=== PATIENT | female | born 1985 | race Two or more races ===

== ENCOUNTER 2022-05-06 13:49 | Outpatient (REF) | payer OTHER, SELFPAY ==
--- NOTE | 2022-05-06 | PFT_ITS ---
INDICATION: Asthma. SPIROMETRY: FEV1 to FVC of 86%, FEV1 is 3.06 L, which is 104% predicted, FVC of 3.56 L, which is 100% predicted. No significant response to bronchodilators noted. LUNG VOLUMES: Total lung capacity 96% predicted. DIFFUSION CAPACITY: DLCO 97% predicted. COMPARISONS: None. INTERPRETATION: No obstructive nor restrictive ventilatory defect. No significant response to bronchodilators noted. Normal maximum voluntary ventilation. Lung volumes are within normal limits except for decrease in the expiratory reserve volume secondary to an elevated BMI. Diffusion capacity is within normal limits. If asthma is in the differential, methacholine challenge may be helpful in assessing for hyper-reactive airways, otherwise clinical correlation warranted. Tejas Bañuelos MD MR/MODL / [id number]
== END 2022-05-06 13:50 | disposition home or self-care (01) ==
LOC: HO.RESP 13:49
PROVIDERS: PCP Family Medicine; Visit Provider Family Medicine
DX: J45.20 Mild intermittent asthma, uncomplicated (principal)
CPT/HCPCS: 94060; 94727; 94729

== ENCOUNTER 2023-06-23 15:55 | Outpatient (REF) | payer OTHER, SELFPAY ==
[2023-06-23 17:57] LABS: Cholesterol 189 mg/dL (<200); HDL Cholesterol 50 mg/dL (>40); LDL Cholesterol Calculated 111 mg/dL (<100); Triglycerides 142 mg/dL (<150)
[2023-06-23 18:04] LABS: Alanine Aminotransferase 20 U/L (0-31); Albumin Level 4.6 g/dL (3.5-5.0); Alkaline Phosphatase 99 U/L (39-117); Anion Gap 13 (12-20); Aspartate Amino Transferase 19 U/L (5-31); Bilirubin Total 0.7 mg/dL (0.0-1.0); Blood Urea Nitrogen 11 mg/dL (9-16); Calcium 9.7 mg/dL (8.4-10.2); Carbon Dioxide 28 mmol/L (22-29); Chloride 105 mmol/L (96-108); Estimated Glomerular Filt Rate > 60; Glucose Random 97 mg/dL (60-115); Potassium 4.3 mmol/L (3.3-5.1); Sodium 142 mmol/L (135-145)
[2023-06-23 18:15] LABS: Reflex LDLD? No
[2023-06-23 18:18] LABS: TSH reflex Free T4 0.74 uIU/mL (0.32-4.0)
[2023-06-24 05:23] LABS: Estimated Average Glucose 108 mg/dL; Hemoglobin A1c % 5.4 % (<6.0)
== END 2023-06-23 15:56 | disposition home or self-care (01) ==
LOC: HO.HHCL 15:55
PROVIDERS: Visit Provider Family Medicine
DX: E66.09 Other obesity due to excess calories (principal); Z68.33 Body mass index [BMI] 33.0-33.9, adult
CPT/HCPCS: 36415; 80053; 80061; 83036; 84443

== ENCOUNTER 2023-07-31 12:22 | Outpatient (REF) | payer OTHER, SELFPAY ==
--- NOTE | ~2023-07-31 | MM_ITS ---
EXAMINATION: MM SCREENING DIGITAL BREAST TOMOSYNTHESIS, BILATERAL CLINICAL INFORMATION: Screening. Asymptomatic. COMPARISON: Mammography: This is a baseline study. TECHNIQUE: Digital breast tomosynthesis is performed in both the craniocaudal and mediolateral oblique views along with computer-aided detection (CAD). Synthesized 2D images are generated from the tomosynthesis. FINDINGS: The breasts are heterogeneously dense, which may obscure small masses (ACR BI-RADS breast composition Category c). There are no significant masses, abnormal calcifications, or other abnormalities. MM/MM tomosynthesis screening BI IMPRESSION: No mammographic evidence of malignancy. ASSESSMENT: BI-RADS BI-RADS 1 - Negative RECOMMENDATION: Routine annual mammography screening. 1 year F/U This examination should not preclude the clinical evaluation of a suspicious palpable abnormality. This patient's information was entered into a reminder system with a target due date for their next mammogram.
== END 2023-07-31 12:23 | disposition home or self-care (01) ==
LOC: HO.MAMMO 12:22
PROVIDERS: PCP Family Medicine; Visit Provider Family Medicine
DX: Z12.31 Encounter for screening mammogram for malignant neoplasm of breast (principal)
CPT/HCPCS: 77063; 77067

== ENCOUNTER → 2023-07-31 12:45 | Outpatient (BNV) | payer OTHER, SELFPAY | PROVIDERS: PCP Family Medicine; Visit Provider Radiology Diagnostic Radiology | DX: Z12.31 Encounter for screening mammogram for malignant neoplasm of breast (principal) | CPT/HCPCS: 77063; 77067 ==

== ENCOUNTER 2023-11-02 14:18 | Outpatient (REF) | payer OTHER, SELFPAY ==
--- NOTE | ~2023-11-02 | US_ITS ---
EXAMINATION: US PELVIS CLINICAL INFORMATION: Abnormal uterine bleeding LMP 10/16/2023 COMPARISON: None available. TECHNIQUE: Transabdominal scanning was performed. The patient declined transvaginal scanning. Spectral Doppler was also performed. Technically limited study due to low bladder volume and bowel gas as well as patient declining to have a transvaginal exam. FINDINGS: Uterus: The uterus is anteverted and measures 7.2 x 3.9 x 4.1 cm. 1.2 x 1 0.9 x 1.2 cm exophytic fibroid extends off the uterine fundus. The endometrium measures 0.5 cm. Adnexa: Both ovaries are visualized. There is normal color flow to the adnexa. There is no ovarian torsion. There is no pelvic ascites or fluid collection. Right ovary measures 1.9 x 1.4 x 1.7 cm. Volume 2.4 mL. Left ovary measures 2.2 x 1.2 x 1.2 cm. Volume 1.7 mL. US/US pelvic and transvaginal IMPRESSION: 1. 1.2 cm exophytic fibroid extends off the uterine fundus. 2. Normal ovaries.
== END 2023-11-02 14:19 | disposition home or self-care (01) ==
LOC: HO.US 14:18
PROVIDERS: PCP Family Medicine; Visit Provider Family Medicine
DX: N93.9 Abnormal uterine and vaginal bleeding, unspecified (principal)
CPT/HCPCS: 76830; 76856

== ENCOUNTER 2024-02-16 15:51 | Outpatient (REF) | payer OTHER, SELFPAY ==
[2024-02-16 17:48] LABS: MANUAL DIFF FLAG NO
[2024-02-16 17:58] LABS: Basophils Percent Auto 0.3 % (0-2); Eosinophils Absolute Auto 0.1 X10*3/uL (0.0-0.4); Hematocrit 39.6 % (37.0-47.0); Imm Gran Abs Auto 0.04 X10*3/uL (0.00-0.03); Imm Gran Pct Auto 0.5 % (0.0-0.4); Lymphocytes Absolute Auto 2.9 X10*3/uL (1.2-4.9); Lymphocytes Percent Auto 33.6 % (20-40); Mean Corpuscular HGB Conc 32.8 g/dl (31.0-35.0); Mean Corpuscular Volume 85.3 fL (80.0-98.0); Mean Platelet Volume 9.7 fL (9.4-12.3); Monocytes Absolute Auto 0.5 X10*3/uL (0.1-1.2); Monocytes Percent Auto 5.7 % (2-11); Neutrophils Absolute Auto 5.1 x10*3/uL (2.0-8.3); Neutrophils Percent Auto 58.9 % (45-73); Platelet Count 308 X10*3/uL (160-400); Red Blood Count 4.64 X10*6/uL (4.20-5.50); Red Cell Distribution Width 13.1 % (11.0-16.0); White Blood Count 8.7 X10*3/uL (4.8-10.8)
[2024-02-16 18:50] LABS: Iron 84 mcg/dL (30-160); Percent Iron Saturation 26 % (15-50); Total Iron Binding Capacity 318 mcg/dL (228-428); Unsaturated Iron Binding 234 ug/dL
[2024-02-16 19:05] LABS: Ferritin 113 ng/mL (10-250)
[2024-02-16 19:18] LABS: Vitamin B12 303 pg/mL (200-900)
[2024-02-18 22:09] LABS: TS Negative Control Passed; TS Panel A 1; TS Panel B 5; TS Positive Control Passed; TSpotTB Borderline (Negative)
== END 2024-02-16 15:52 | disposition home or self-care (01) ==
LOC: HO.HHCL 15:51
PROVIDERS: Visit Provider Family Medicine
DX: N93.9 Abnormal uterine and vaginal bleeding, unspecified (principal); D64.9 Anemia, unspecified; Z11.1 Encounter for screening for respiratory tuberculosis
CPT/HCPCS: 36415; 82607; 82728; 82746; 83540; 85025; 86481

== ENCOUNTER 2024-02-22 13:21 | Outpatient (REF) | payer OTHER, SELFPAY ==
[2024-02-25 15:34] LABS: TS Negative Control Passed; TS Panel A 0; TS Panel B 1; TS Positive Control Passed; TSpotTB Negative (Negative)
== END 2024-02-22 13:22 | disposition home or self-care (01) ==
LOC: HO.HHCL 13:21
PROVIDERS: Visit Provider Family Medicine
DX: Z11.1 Encounter for screening for respiratory tuberculosis (principal)
CPT/HCPCS: 36415; 86481

== ENCOUNTER 2024-03-03 13:39 | Outpatient (AMB) | payer OTHER, SELFPAY ==
--- NOTE | 2024-03-03 13:58 | A.OFFVIS_ITS ---
Vital Signs 03/03/24 14:08 Height 5 ft 3 in Weight 198 lb BMI 35.1 Intake Visit Reasons: hemorroids Intake Note: This patient presents for hemorrhoid assessment. Pt c/o; reports last epidose of rectal bleeding was November 2023, reports constipation, straining with bowel movements, reports she is using stool softeners. Inseam Leveler Required: No Accompanied by: Self / Same As Patient Allergies No Known Allergies Allergy (Unverified 03/03/24 14:04) Medication List - Last Reviewed 03/03/24 by NABOR Wu albuterol sulfate mg inhalation docusate sodium 100 mg PO BID fluticasone propionate 50 mcg/actuation sprays intranasal loratadine 10 mg PO QAM magnesium oxide 400 mg PO DAILY naproxen 500 mg PO BID HPI HPI hemorroids: Details: [age] year old female referred for hemorrhoid issues. She says that she has had hemorrhoids for almost 10 years now. She says that she has had worsening prolapse along with pain and discomfort. She has chronic constipation as well and her hemorrhoids have been swelling up more frequently now especially with bowel movements. She says that she does occasionally see small amounts of blood on wiping. He had She states that she had a particularly severe episode of pain and swelling last Nov, 2023. [facility] Medical History (Updated 03/03/24 @ 14:18 by Kerwin Antonio MD) Hemorrhoids that prolapse with straining and require manual replacement back inside anal canal Surgical History History of surgery on arm Social History Alcohol intake: never Patient Tobacco Use Status: Never used Tobacco Review of Systems Const Denies chills and Denies fever(s) Card Denies chest pain, Denies dyspnea and Denies dyspnea on exertion Resp Denies cough, Denies dyspnea and Denies dyspnea on exertion GI Reports hematochezia and Reports constipation Denies hematuria Musc Denies back pain and Denies limited range of motion Neuro Denies focal weakness and Denies convulsions Psych Denies depression and Denies mood swings Physical Exam Vital Signs: BMI result Body Mass Index 35.1 Const General: comfortable and no acute distress Orientation/consciousness: patient oriented x3 Neck Neck: Yes no lymphadenopathy Resp Auscultation: clear to auscultation bilaterally Cardio Rhythm: regular rhythm GI Other: Rectal exam shows moderate size external hemorrhoids posteriorly and anteriorly Palpation (GI): Soft to palpation, nontender and no guarding Neuro General: patient oriented x3 Office Procedures Anoscopy She was in sunita-knife position. The anoscope was gently inserted. A full examination of the anal canal was done. She did have this moderate-sized internal external hemorrhoidal column on the posterior aspect as well as the anterior aspect. The posterior hemorrhoidal column seems to prolapse easily. There were no other lesions. There was no fissure ulceration. No induration on digital exam. There is no bleeding. [id number] Assessment & Plan Assessment & Plan (1) Hemorrhoids that prolapse with straining and require manual replacement back inside anal canal: Code(s): K64.2 - Third degree hemorrhoids Category: Medical Plan: She has had worsening problems with hemorrhoids including frequent prolapse as well as pain and swelling. Examination shows moderate size internal external hemorrhoidal columns I explained to her the option of proceeding with hemorrhoidectomy. I discussed the technique of this procedure. I reviewed the risks including but not limited to bleeding, infections, postop pain, sphincter injury, as well as the benefits and alternatives. I reviewed with her to expect postoperatively. She wants to proceed with hemorrhoidectomy. She however is going on a trip to [place] and to [place] this April in May so she will have the procedure done after that. Coding Level of Care Code New Pt Level 3 (85315) Diagnoses Hemorrhoids that prolapse with straining and require manual replacement back in side anal canal K64.2 CPT Codes Details - CPT: 25163-[id number] ([id number])
[2024-03-03 14:08] VITALS: BMI 35.1
== END 2024-03-03 14:23 | disposition home or self-care (01) ==
PROVIDERS: PCP Family Medicine; Referring Provider Family Medicine; Visit Provider Surgery
DX: K64.2 Third degree hemorrhoids (principal)
CPT/HCPCS: 46600; 99203

== ENCOUNTER → 2024-03-03 13:39 | Outpatient (BNVA) | payer OTHER, SELFPAY | PROVIDERS: PCP Family Medicine; Referring Provider Family Medicine; Visit Provider Surgery | DX: K64.2 Third degree hemorrhoids (principal) | CPT/HCPCS: 46600; 99202 ==

== ENCOUNTER 2024-09-29 13:09 | Outpatient (AMB) | payer OTHER, SELFPAY ==
--- NOTE | 2024-09-29 13:16 | MHC.OFFVIS ---
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 it started few months ago and is getting worse no other associated symptoms. [facility] [place] Medical History Asthma Hemorrhoids that prolapse with straining and require manual replacement back inside anal canal Surgical History History of surgery on arm Social History Alcohol intake: never Patient Tobacco Use Status: Never used Tobacco Female Reproductive History Menstrual Date of last menstrual period: 09/26/24 (Present ) Date of Mammogram: 07/21/23 (bi rad 1) Review of Systems Const All systems reviewed & are unremarkable except as noted in HPI and below Card Reports as per HPI Resp Reports as per HPI GI Reports as per HPI and Reports no additional complaints Reports as per HPI Physical Exam Vital Signs: Last Vital Signs BP 132/82 09/29/24 13:26 BMI result Body Mass Index 35.1 Const General: cooperative, healthy appearing and comfortable Chest Chest palpation & inspection: normal inspection of the chest and normal palpation of entire chest wall Breast/axilla inspection: normal inspection of the breasts and normal inspection of the axillae Breast/axilla palpation: normal palpation of the breasts, normal palpation of the axillae and no axillary lymphadenopathy Resp Effort & Inspection: normal respiratory effort Auscultation: clear to auscultation bilaterally Percussion: percussion normal Cardio Palpation: normal PMI Rate: regular rate Rhythm: regular rhythm Heart sounds: no murmurs and no rubs Peripheral pulses: Peripheral pulses 2+ throughout GI Inspection: Yes normal to inspection Palpation (GI): Soft to palpation, nontender, no guarding, not rigid and No hepatosplenomegaly present Percussion: Yes normal to percussion Auscultation: normal bowel sounds Rectal Exam - Female: deferred General: Yes bladder normal to palpation External Female Exam: No lesion Speculum Exam - Vagina: normal appearance of the vagina, normal palpation, normal vaginal discharge and not erythematous Speculum Exam - Cervix: normal appearance of the cervix and normal palpation Bimanual exam- vagina & uterus: normal bimanual exam, normal palpation, uterine size normal, bladder normal to palpation, consistency normal and normal palpation Bimanual Exam- Adnexa, other: normal adnexae, no masses and no tenderness Results AMB Test Urine AMB Test Urine Negative Last Edit by Tawana Pineda CMA on 09/29/24 13:29 Assessment & Plan Assessment & Plan (1) Abnormal uterine bleeding: Code(s): N93.9 - Abnormal uterine and vaginal bleeding, unspecified Category: Medical Plan: Screening mammogram ordered, Co testing done, GC and chlamydia taken CBC, TSH, HCG, and pelvic ultrasound ordered. Discussed with the patient the different causes of abnormal bleeding including thyroid disorders, uterine and ovarian pathology, endometrial hyperplasia, carcinoma and other potential causes. Discussed with the patient the work up including CBC (to r/o anemia), TSH, pelvic Ultrasound, endometrial biopsy to r/o endometrial pathology. All questions answered and the patient verbalized understanding. Instructed the patient to schedule an appointment for an endometrial biopsy in 2 weeks. Orders: Orders TSH reflex Free T4 Today N93.9 - Abnormal uterine and vaginal bleeding, unspecified AMB HCG Urine Test Today Z32.02 - Encounter for test, result negative US pelvic and transvaginal Today N93.9 - Abnormal uterine and vaginal bleeding, unspecified Complete Blood Count no Diff Today N93.9 - Abnormal uterine and vaginal bleeding, unspecified HCG Quantitative Today N93.9 - Abnormal uterine and vaginal bleeding, unspecified MM screening mammo BI Today Z12.31 - Encounter for screening mammogram for malignant neoplasm of breast Coding Level of Care Code New Pt Level 3 (65843) Diagnoses Abnormal uterine bleeding N93.9
[2024-09-29 13:26] VITALS: BP 132/82; BMI 35.1
--- OUTSIDE RECORDS SUMMARY | 2024-09-29 16:16 | XMS_ITS | Clinical Summary ---
Author Organization [employer] Address [address] [place] [address] [address] [place] [address] Care Team Providers Care Machine Try Out Setter Name Role Phone Anny Carcamo MD Primary Care Provider Allergies No known active allergies Medications albuterol (ProAir HFA) 108 (90 Base) MCG/ACT inhaler Inhale 2 puffs every 6 (six) hours if needed for wheezing. 36 g 3 02/16/20 24 025 Active loratadine (Claritin) 10 MG tablet Take 1 tablet (10 mg) by mouth Once per day. 30 tablet 02/16/20 24 025 Active albuterol (2.5 MG/3ML) 0.083% nebulizer solution Take 3 mL (2.5 mg) by nebulization every 4 (four) hours if needed for wheezing or shortness of breath (Maximum 4 treatments per day). 75 mL 1 02/16/20 24 025 Active MAGnesium-Oxid e 400 (240 Mg) MG tablet Take 1 tablet (400 mg) by mouth Once per day. 30 tablet 02/16/20 24 Active docusate sodium (Colace) 100 MG capsule Take 1 capsule (100 mg) by mouth 2 times daily. 60 capsule 5 02/16/20 24 Active fluticasone (Flonase) 50 MCG/ACT nasal spray SHAKE AND SPRAY 1 TO 2 SPRAYS IN EACH NOSTRIL EVERY MORNING 16 g 2 06/20/20 24 Active naproxen (Naprosyn) 500 MG tabletIndicati ons:Nonintract able headache, unspecified chronicity pattern, unspecified headache type TAKE 1 TABLET(500 MG) BY MOUTH TWICE DAILY NEEDED FOR PAIN 60 tablet 09/09/19 25 Active naproxen (Naprosyn) 500 MG tabletIndicati ons:Nonintract able headache, unspecified chronicity pattern, unspecified headache type TAKE 1 TABLET(500 MG) BY MOUTH TWICE DAILY NEEDED FOR PAIN 60 tablet 08/09/19 25 025 Discontinued Active Problems Problem Noted Date Diagnosed Date Depression, recurrent 02/21/2024 Assessment & Plan (02/21/2024 3:17 PM EDT): - PHQ9 score 7 - patient declines outpatient treatment History of kidney stones 02/21/2024 Assessment & Plan (02/21/2024 3:15 PM EDT): - Incidental finding on previous CT, non-obstructive - adequate hydration Hemorrhoid 02/16/2024 Assessment & Plan (02/16/2024 3:53 PM EDT): - improve treatment for constipation - continue fiber-rich diet - will write script for adrienne jones - will refer to general surgeon for evaluation and management as requested by patient Fibroid 12/18/2023 Assessment & Plan (02/16/2024 3:54 PM EDT): - 11/02/23 Pelvic US showed 1.2 cm exophytic fibroid extends off the uterine fundus. - referred to COLLATOR OPERATOR Assessment & Plan (12/18/2023 10:34 AM EDT): - 11/02/23 Pelvic US showed 1.2 cm exophytic fibroid extends off the uterine fundus. - referred to COLLATOR OPERATOR Abnormal uterine bleeding (AUB) 10/28/2023 Assessment & Plan (02/16/2024 3:51 PM EDT): - oligomenorrhea rather than menorrhagia, question of PCOS - 11/02/23 Pelvic US 1. 1.2 cm exophytic fibroid extends off the uterine fundus. 2. Normal ovaries. - refer to COLLATOR OPERATOR - check anemia lab Assessment & Plan (12/18/2023 10:36 AM EDT): - oligomenorrhea rather than menorrhagia, question of PCOS - 11/02/23 Pelvic US 1. 1.2 cm exophytic fibroid extends off the uterine fundus. 2. Normal ovaries. - refer to COLLATOR OPERATOR - PAP at next visit Assessment & Plan (10/28/2023 5:35 AM EDT): - oligomenorrhea rather than menorrhagia, question of PCOS - evaluate AUB with US - schedule PAP after she returns from her trip Elevated BP without diagnosis of hypertension Assessment & Plan (02/16/2024 3:52 PM EDT): -Goal BP < 140/90 per JNC-8 and < 130/80 per ACC/AHA guideline (Treatment threshold >=140/90) -BP not at goal initially, second measurement has improved, patient attributes to anxiety -Family hx HTN -Patient denies symptoms of ERIKA initially because she does not want to use CPAP. Patient become somewhat curious when we discussed about a part of evaluation for headache. -Continue working on lifestyle modifications -Recommended self-monitoring BP. -Follow up in 3-6 mo, sooner if any problem arises Assessment & Plan (10/28/2023 5:38 AM EDT): -Goal BP < 140/90 per JNC-8 and < 130/80 per ACC/AHA guideline (Treatment threshold >=140/90) -BP not at goal, patient attributes to current emotional state -Family hx HTN -Patient denies symptoms of ERIKA initially because she does not want to use CPAP. Patient become somewhat curious when we discussed about a part of evaluation for headache. -Continue working on lifestyle modifications -Recommended self-monitoring BP. -Follow up in 3-6 mo, sooner if any problem arises Obesity 06/29/2023 Assessment & Plan (10/28/2023 6:00 AM EDT): - patient gained weight since last encounter and her BP is elevated - possible ERIKA, patient is not enthusiastic about sleep study for ERIKA Tx, but is interested in having as a part of work-up for VEE. - will reassess at next visit Assessment & Plan (06/29/2023 6:48 AM EST): - work on lifestyle modifications Learning disability 06/29/2023 Assessment & Plan (02/21/2024 3:18 PM EDT): - pt states that she has been on social security disability since she was a child due to learning disability - ?autism spectrum disorder (Asperger's ?) - not engaged in BHS, and pt declines Assessment & Plan (10/28/2023 5:40 AM EDT): - pt states that she has been on social security disability since she was a child due to learning disability - Previous Dx is uncertain at this time - pt does not have mood disorder symptoms or signs - ?autism spectrum disorder (Asperger's ?) - not engaged in BHS, and pt declines Assessment & Plan (06/29/2023 6:54 AM EST): - pt states that she has been on social security disability since she was a child due to learning disability - Previous Dx is uncertain at this time - pt does not have mood disorder symptoms or signs - ?autism spectrum disorder (Asperger's ?) - not engaged in BHS, and pt declines Allergic rhinitis 02/06/2015 06/17/2023 Assessment & Plan (02/16/2024 3:54 PM EDT): -continue loratadine and fluticasone nasal Assessment & Plan (10/28/2023 5:40 AM EDT): -continue loratadine and fluticasone nasal Assessment & Plan (06/29/2023 6:50 AM EST): -continue loratadine and fluticasone nasal Hypertrophy of tonsils 02/06/2015 Assessment & Plan (10/28/2023 5:40 AM EDT): - patient declines sleep study or ENT evaluation Asthma 03/21/2013 06/17/2023 Assessment & Plan (02/16/2024 3:50 PM EDT): - continue albuterol HFA prn (patient request ProAir because other inhalers are not effective as ProAir). Assessment & Plan (10/28/2023 5:39 AM EDT): - continue albuterol HFA prn (patient request ProAir because other inhalers are not effective as ProAir). Assessment & Plan (06/29/2023 6:48 AM EST): - continue albuterol HFA prn Impaired fasting glucose 03/21/2013 023 Assessment & Plan (02/16/2024 3:54 PM EDT): - 06/23/23 A1C 5.4%, improved - recent weight gain - work on lifestyle modifications Assessment & Plan (10/28/2023 5:58 AM EDT): - 06/23/23 A1C 5.4%, improved - recent weight gain - work on lifestyle modifications Assessment & Plan (06/29/2023 6:49 AM EST): - check lab - work on lifestyle modifications Migraine 03/21/2013 06/17/2023 Assessment & Plan (02/16/2024 3:54 PM EDT): - continue magnesium oxide - continue judicious use of NSAID prn Assessment & Plan (10/28/2023 5:41 AM EDT): - continue magnesium oxide - continue judicious use of NSAID prn Assessment & Plan (06/29/2023 6:50 AM EST): - continue magnesium oxide - continue judicious use of NSAID prn Resolved Problems Problem Noted Date Diagnosed Date Resolved Date Restless legs 03/21/2013 06/17/2023 06/29/2023 Encounters Date Type Department Care Team Description 09/29/2024 Orders Only GENERIC EXTERNAL DATA DEPARTMENT Provider, Generic External Data 09/08/2024 Refill [facility] [address] [facility] [place] [address] Anny Carcamo MD Nonintractable headache, unspecified chronicity pattern, unspecified headache type 08/09/2024 Refill [facility] [address] [facility] [place] [place] [address] Anny Carcamo MD Nonintractable headache, unspecified chronicity pattern, unspecified headache type 07/20/2024 Refill [facility] [address] [facility], [place] [address] Anny Carcamo MD 07/10/2024 Refill [facility] [address] [place] [address] Anny Carcamo MD Nonintractable headache, unspecified chronicity pattern, unspecified headache type from Last 3 Months Immunizations Name Administration Dates Next Due Influenza injectable quadriv alent IIV4 with preservative 08/10/2017 Influenza injectable quadrivalent preservative f ree 06/23/2023,04/10/2022 Influenza, Split (incl. purified surface antigen ) 03/21/2013 Moderna Covid-19 Vaccine 6+ Bivalent 07/23/2022 Pneumococcal Polysaccharide PPSV23 02/06/2015 Tdap 06/23/2023,10/11/2009 Family History Medical History Relation Name Comments Hypertension Father Diabetes Maternal Grandmother Hypertension Maternal Grandmother Hypertension Mother Relation Name Status Comments Father Maternal Grandmother Mother Social History Tobacco Use Types Packs/Day Years Used Date Smoking Tobacco: Never Smokeless Tobacco: Never Tobacco Cessation:Counseling Given: Not Answered Depression Answer Date Recorded Patient Health Questionnaire-9 Score 7 02/16/2024 Patient Health Questionnaire-9 Score 7 02/16/2024 Last PHQ-9: Questionnaire Data Not on file 0 02/16/2024 Housing Stability Answer Date Recorded What is your housing situation today? I have monico sosa 06/23/[address] you li ve. Do you have problems with any of the following? None of the above 06/23/2023 Food Insecurity Answer Date Recorded Within the past 12 months, y ou worried that your food would run out before you got money to buy more: Sometimes True 2023 Within the past 12 months,th e food you bought just didn't last and you didn't have enough money to get more: Sometimes True 10/15/2023 Transportation Answer Date Recorded In the past 12 months, has l ack of transportation kept you from medical appts, meetings, work or from getting things needed for daily living? No 06/23/2023 Utilities Answer Date Recorded In the past 12 months, has t he electric, gas, oil or water company threatened to shut off services in your home? No 06/23/2023 Depression Answer Date Recorded Patient Health Questionnaire-2 Score 2 02/16/2024 Comments Unknown Sex and Gender Information Value Date Recorded Sex Assigned at Female 05/05/2022 10:17 AM EDT Legal Sex Female 10:17 AM EDT Gender Identity Female 05/05/2022 10:17 AM EDT Sexual Orientation Straight 05/05/2022 10 :17 AM EDT Last Filed Vital Signs Vital Sign Reading Time Taken Comments Blood Pressure 143/101 02/16/2024 3:09 PM EDT Pulse 78 02/16/2024 3:09 PM EDT Temperature 36.1 ??C (96.9 ??F) 02/16/2024 3:09 PM ED T Respiratory Rate 20 02/16/2024 3:09 PM EDT Oxygen Saturation 99% 02/16/2024 3:09 PM EDT Inhaled Oxygen Concentration - - Weight 89.4 kg (197 lb) 02/16/2024 3:09 PM EDT Height 158.7 cm (5' 2.49 ) 02/16/2024 3:09 PM ED T Body Mass Index 35.47 02/16/2024 3:09 PM EDT Plan of Treatment Upcoming Encounters Date Type Department Care Team (Late st Contact Info) Description 11/02/2024 9:45 AM EDT Office Visit [facility] [address] [place] [address] Anny Carcamo MD [address] [place] [address] Health Maintenance Due Date Last Done Comments Alcohol/Substance Use Screening 1995 Family Planning (PISQ) 1998 Hepatitis B Vaccines (1 of 3 - 19+ 3-dose series) 2002 Pneumococcal Vaccine: Pediatrics (0 to 5 Years) and At-Risk Patients (6 to 49) Years) (2 of 2 - PCV) 02/07/2016 02/06/2015 COVID-19 Vaccine (4 - season) 2024 07/23/2022, 11/28/2020, 10/31/2020 Influenza Vaccine (#1) 2024 , 04/10/2022, 08/10/2017, Additional history exists SDOH Screening 10/14/2024 10/15/2023 Depression Screening 02/15/2025 02/16/2024, 02/16/20 24 Tobacco Screening 02/15/2025 02/16/2024 Pap Smear 05/19/2025 05/19/2022 Mammogram 07/31/2025 07/31/2023 Cervical Cancer Screening 05/19/2027 HPV/Cotest 05/19/2027 05/19/2022 Lipid Panel 06/23/2028 06/23/2023, 04/10/2022 Zoster Vaccines (1 of 2) 2033 DTaP/Tdap/Td Vaccines (3 - Td or Tdap) 06/23/2033 06/23/2023, 10/11/2009 RSV Patients and Patients Aged 60 years or older (1 - 1-dose 75+ series) 2058 HIV Screening Completed 04/10/2022 Hepatitis C Screening Completed 04/10/2022 HIB Vaccines Aged Out No longer eligi ble based on patient's age to complete this topic HPV Vaccines Aged Out No longer eligi ble based on patient's age to complete this topic Hepatitis A Vaccines Aged Out No long er eligible based on patient's age to complete this topic IPV Vaccines Aged Out No longer eligi ble based on patient's age to complete this topic Meningococcal Vaccine Aged Out No jennifer robbie eligible based on patient's age to complete this topic RSV under 20 months Aged Out No longe r eligible based on patient's age to complete this topic Rotavirus Vaccines Aged Out No longer eligible based on patient's age to complete this topic Procedures Procedure Name Priority Date/Time Associated Diagnosis Comments HCG, TOTAL, QN Routine 09/29/2024 1:54 PM EDT TSH W/REFLEX TO FT4 Routine 09/29/2024 1 :54 PM EDT CBC Routine 09/29/2024 1:54 PM EDT BI MAMMOGRAM SCREENING TOMOSYNTHESIS BILATERAL Routine 07/31/2023 12:50 PM EST LIPID PANEL WITH REFLEX TO DIRECT LDL Routine 06/23/2023 3:56 PM EST Class 1 obesity due to excess calories with body mass index (BMI) of 33.0 to 33.9 in adult, unspecified whether serious comorbidity present THINPREP IMAGING PAP AND HPV MRNA E6/E7 WITH REFLEX TO HPV 16,18/45 Routine 05/19/2022 10:42 AM EST ZZZ HISTORICAL HEPATITIS C AB W/REFL TO HCV RNA, QN, PCR Routine 04/10/2022 11:49 AM EDT HIV 1/2 ANTIGEN/ANTIBODY, FOURTH GENERATION W/RFL Routine 04/10/2022 11:49 AM EDT from Last 3 Months or Most Recently Relevant to Health Maintenance Results * TSH with Reflex to Free T4 (09/29/2024 1:54 PM EDT) TSH reflex Free T4 0.81 0.32 - 4.0 uIU/mL [facility] 09/29/2024 1:54 PM EDT 09/29/2024 1:54 PM EDT us Generic External Data Provider LAB BLOOD ORDERAB LES Final Result [facility] [address] [place] [phone] * CBC (09/29/2024 1:54 PM EDT) White Blood Count 9.0 4.8 - 10.8 X10*3/uL [facility] Red Blood Count 4.54 4.20 - 5.50 X10*6/uL [facility] Hemoglobin 12.4 12.0 - 16.0 g/dl [facility] Hematocrit 37.7 37.0 - 47.0 % [facility] Mean Corpuscular Volume 83.0 80.0 - 98.0 fL [facility] Mean Corpuscular Hemoglobin 27.3 27.0 - 33.0 pg [facility] Mean Corpuscular HGB Conc 32.9 31.0 - 35.0 g/dl [facility] Red Cell Distribution Width 14.3 11.0 - 16.0 % [facility] Platelet Count 324 160 - 400 X10*3/uL [facility] Mean Platelet Volume 9.5 9.4 - 12.3 fL [facility] NRBC Pct Auto 0.0 0.0 - 0.2 /100WBC [facility] NRBC Abs Auto 0.000 0.0 - 0.012 X10*3/uL [facility] 09/29/2024 1:54 PM EDT 09/29/2024 1:54 PM EDT us Generic External Data Provider LAB BLOOD ORDERAB LES Final Result [facility] [address] [place] [address] [phone] * hCG, Total, Quantitative (09/29/2024 1:54 PM EDT) HCG Quantitative <2 mIU/mL [facility] Comment:Weeks post LMP Appro ximate hCG(Last Menstrual Period) Range (mIU/ml)3 - 4 weeks 9 - 1304 - 5 weeks 75 - 2,6005 - 6 weeks 850 - 20,8006 - 7 weeks 4000 - 100,2007 - 12 weeks 11,500 - 289,42364 - 16 weeks 18,300 - 137,32487 - 29 weeks (2nd trimester) 1,400 - 53,87849 - 41 weeks (3rd trimester) 940 - 60,000The Farley B-hCG assay is used for the early detection ofpregnancy; it cannot be used to diagnose any conditionunrelated to . If a B-hCG level is not supportedby the clinical evidence, results should be confirmed by analternative method (qualitative urine hCG, for example). 09/29/2024 1:54 PM EDT 09/29/2024 1:54 PM EDT us Generic External Data Provider LAB BLOOD ORDERAB LES Final Result [facility] [address] [place] [address] [phone] * BI Mammogram Screening Tomosynthesis Bilateral (07/31/2023 12:50 PM EST) Anatomical Region Laterality Modality Breast Bilateral Mammography 07/31/2023 12:5 0 PM EST Narrative 08/17/2023 6:29 AM EST ? [facility] ? [address] ?[place] [address] ? Mammography Report ? Signed ? Patient: Jarad,Kay ?MR#: [id number] ?? [id number] ? : 1985 ?Acct:[id number] ? Age/Sex: 38 / F ?ADM Date: //24 ? Loc: HO.MAMMO ? Attending Dr: Anny Carcamo MD ? Ordering Physician: Anny Carcamo MD ?Results: 1Negative ? Date of Service: 07/31/24 ?Follow Up: 1 Year From Orig ?? inal Mammogram ? Procedure(s): MM tomosynthesis screening BI ?? Accession Number(s): [id number] ? cc: Anny Carcamo MD ? EXAMINATION: ?? MM SCREENING DIGITAL BREAST TOMOSYNTHESIS, BILATERAL ? CLINICAL INFORMATION: ? Screening. Asymptomatic. ? COMPARISON: ?? Mammography: This is a baseline study. ? TECHNIQUE: ?? Digital breast tomosynthesis is performed in both the craniocaudal and ?? mediolateral oblique views along with computer-aided detection (CAD). ?? Synthesized 2D images are generated from the tomosynthesis. ? FINDINGS: ?? The breasts are heterogeneously dense, which may obscure small masses ?? (ACR BI-RADS breast composition Category c). ? There are no significant masses, abnormal calcifications, or other ?? abnormalities. ? MM/MM tomosynthesis screening BI ?? IMPRESSION: ?? No mammographic evidence of malignancy. ? ASSESSMENT: ? BI-RADS BI-RADS 1 - Negative ? RECOMMENDATION: ?? Routine annual mammography screening. ? 1 year F/U ? This examination should not preclude the clinical evaluation of a ?? suspicious palpable abnormality. ? This patient's information was entered into a reminder system with a ?? target due date for their next mammogram. ? Dictated By: ?Violetta Donato MD ? Signed By: ?<Electronically signed by Violetta Donato MD in OV> ? 08/17/23624 ? DD/ 1250 ? TD/TT: ? Sleeve Turner: ? Procedure Note Aureliano Chavez - 08/17/2023 [facility] [address] [place] [address] Dr. [place], [place] [address] Mammography Report Signed Patient: Kay AbrahamMR#: [id number] : 1985Acct:[id number] Age/Sex: 38 / FADM Date: 07/31/23 Loc: HO.MAMMO Attending Dr: Anny Carcamo MD Ordering Physician: Anny Carcamo MDResults: 1Negative Date of Service: 07/31/23Follow Up: 1 Year From Orig ina Mammogram Procedure(s): MM tomosynthesis screening BI Accession Number(s): [id number] cc: Anny Carcamo MD EXAMINATION: MM SCREENING DIGITAL BREAST TOMOSYNTHESIS, BILATERAL CLINICAL INFORMATION: Screening. Asymptomatic. COMPARISON: Mammography: This is a baseline study. TECHNIQUE: Digital breast tomosynthesis is performed in both the craniocaudal and mediolateral oblique views along with computer-aided detection (CAD). Synthesized 2D images are generated from the tomosynthesis. FINDINGS: The breasts are heterogeneously dense, which may obscure small masses (ACR BI-RADS breast composition Category c). There are no significant masses, abnormal calcifications, or other abnormalities. MM/MM tomosynthesis screening BI IMPRESSION: No mammographic evidence of malignancy. ASSESSMENT: BI-RADS BI-RADS 1 - Negative RECOMMENDATION: Routine annual mammography screening. 1 year F/U This examination should not preclude the clinical evaluation of a suspicious palpable abnormality. This patient's information was entered into a reminder system with a target due date for their next mammogram. Dictated By: Violetta Donato MD Signed By: <Electronically signed by Violetta Donato MD in OV> 08/17/23 0625 DD/ 1250 TD/TT: Sleeve Turner: Anny Carcamo MD [facility] BI PROCEDURES Final Result * (ABNORMAL) Lipid Panel with Reflex to Direct LDL (06/23/2023 3:56 PM EST) Triglycerides 142 <150 mg/dL [facility] Comment:Desirable Triglyceri de: less than 150 mg/dLBorderline High Triglyceride 150-199 mg/dLHigh Triglyceride: 200-499 mg/dLVery High Triglyceride: greater than or equal to 5OO mg/dL Cholesterol 189 <200 mg/dL [facility] Comment:Desirable Cholestero l: less than 200 mg/dLBorderline High Cholesterol: 200-239 mg/dLHigh Cholesterol: greater than 239 mg/dL LDL Cholesterol Calculated 111(H) <100 mg/dL [facility] Comment:Desirable LDL: less than 100 mg/dLNear Optimal/Above Optimal LDL: 110- 129 mg/dLBorderline High LDL: 130-159 mg/dLHigh LDL: 160-189 mg/dLVery High LDL: greater than or equal to 190 mg/dL HDL Cholesterol 50 >40 mg/dL [facility] Comment:Desirable HDL: great er than 40 mg/dL Note: This HDL assay may give artificially low results in patients with liver disease. Blood 06/23/2023 3:56 PM EST 06/23/2023 5:41 PM EST us Anny Carcamo MD LAB BLOOD ORDERABLES Final Resul t [facility] [address] [place] [phone] * THINPREP TIS PAP AND HPV mRNA E6/E7 WITH REFLEX TO HPV 16,18/45 (05/19/2022 10:42 AM EST) Clinical Information: None given [facility] COMMENT SEE COMMENT [facility] Comment: EXPLANATORY NOTE: ? The Pap is a screening test for cervical cancer. It is ?? not a diagnostic test and is subject to false negative ?? and false positive results. It is most reliable when a ?? satisfactory sample, regularly obtained, is submitted ?? with relevant clinical findings and history, and when ?? the Pap result is evaluated along with historic and ?? current clinical information. ?? COMMENT: This Pap test has been evaluated with computer assisted technology. [facility] Project Management Analyst : SEE COMMENT [facility] Comment: MSM, CT(ASCP) CT screening location: [address] ??[address] HPV nRNA E6/E7 Not Detected Not Detected [facility] Comment: Methodology: Dbas-Mediated Amplification This assay detects E6/E7 viral messenger RNA (mRNA) from 14 high-risk HPV types (16,18,31,33,35,39,45,51,52,56,58,59,66,68). ? Cervical sources are required for HPV testing. If a vaginal source from a patient who has had a total hysterectomy with removal of cervix was ?? submitted, please contact the testing laboratory for alternative testing options. ?? For additional information, please refer to http://StemSave.copygram/faq/GBG788t4 (This link if provided for information/ educational purposes only.) Interpretation/R esult: Negative for intraepithelial lesion or malignancy. [facility] LMP: 05/11/22 [facility] Prev. BX: NONE GIVEN [facility] Prev. PAP: NONE GIVEN [facility] SOURCE: None given [facility] Statement Of Adequacy: SEE COMMENT [facility] Comment: Satisfactory for evaluation. Endocervical/transformation zone component present. 05/19/2022 10:4 2 AM EST Mary Marroquin CNM LAB PATHOLOGY ORDERABLES Final Result Performing Organization Address [facility] [address]/[facility] Co de Phone Number [facility] * HEPATITIS C AB W/REFL TO HCV RNA, QN, PCR (04/10/2022 11:49 AM EDT) HEPATITIS C ANTIBODY NON-REACTI VE NON-REACT CHIVO [facility] INDEX 0.03 <1.00 [facility] Comment: ?? HCV antibody was non-reactive. There is no laboratory ?? evidence of HCV infection. ?? In most cases, no further action is required. However, if recent HCV exposure is suspected, a test for HCV RNA (test code 34858) is suggested. ?? For additional information please refer to http://StemSave.copygram/faq/XLU92f7 (This link is being provided for informational/ educational purposes only.) ?? 04/10/2022 11:4 9 AM EDT Anny Carcamo MD HISTORICAL/NON ORDERABLE LABS Fi nal Result Performing Organization Address City/[facility] [address]/ZIP Co de Phone Number [facility] * HIV 1/2 ANTIGEN/ANTIBODY,FOURTH GENERATION W/RFL (04/10/2022 11:49 AM EDT) HIV-1/2 ANTIGEN AND ANTIBODIES, 4TH GENERATION W/ REFLEX NON-REACT CHIVO NON-REACT CHIVO [facility] Comment: HIV-1 antigen and HIV-1/HIV-2 antibodies were not detected. There is no laboratory evidence of HIV infection. ?? PLEASE NOTE: This information has been disclosed to you from records whose confidentiality may be protected by state law. ??If your state requires such protection, then the state law prohibits you from making any further disclosure of the information without the specific written consent of the person to whom it pertains, or as otherwise permitted by law. A general authorization for the release of medical or other information is NOT sufficient for this purpose. ? For additional information please refer to [email or web address].copygram/faq/GKK311 (This link is being provided for informational/ educational purposes only.) ? The performance of this assay has not been clinically validated in patients less than 2 years old. ?? 04/10/2022 11:4 9 AM EDT Anny Carcamo MD LAB BLOOD ORDERABLES Final Resul t CONVERTED LEGACY LABS from Last 3 Months or Most Recently Relevant to Health Maintenance Insurance [facility] Care Teams Machine Try Out Setter Relationship Specialty Start Date End Date Anny Carcamo MD [address] [place] [address] PCP - General Family Medicine 01/20/14
--- OUTSIDE RECORDS SUMMARY | 2024-09-29 16:16 | XMS_ITS | Encounter Summary ---
Author Organization [employer] Address [address] [facility] 7t [place] [address] Care Team Providers Care Vocational Childcare Teacher Name Role Phone Anny Carcamo MD Primary Care Provider [phone] Reason for Visit * Reason Onset Date Comments Returning Call 10/15/2023 Encounter Details Date Type Department Care Team ([facility] st Contact Info) Description 10/15/2023 Telephone [facility] [address] [place] [address] Anny Carcamo MD [address] [place] [address] Returning Call Social History Tobacco Use Types Packs/Day Years Used Date Smoking Tobacco: Never Smokeless Tobacco: Never Depression Answer Date Recorded Patient Health Questionnaire-9 Score 0 06/23/2023 Patient Health Questionnaire-9 Score 0 06/23/2023 Last PHQ-9: Questionnaire Data Not on file 1 08/24/2022 Housing Stability Answer Date Recorded What is [...] Answer Date Recorded Patient Health Questionnaire-2 Score 0 06/23/2023 Comments Unknown Sex and Gender Information Value Date Recorded Sex Assigned at Female 05/05/2022 10:17 AM EDT Legal Sex Female 10:17 AM EDT Gender Identity Female 05/05/2022 10:17 AM EDT Sexual Orientation Straight 05/05/2022 10 :17 AM EDT documented as of this encounter Miscellaneous Notes * Telephone Encounter - Zachary Bañuelos - 10/15/2023 10:52 AM EDT Tc from pt returning call regarding message below. ALICE Nicholson placed outbound call to patient to complete pre-visit planning. No answer at this time. Patient name and were not confirmed. CC left voicemail requesting return call. Direct contactinformation provided. Please contact pt at [phone] documented in this encounter Plan of Treatment Upcoming Encounters Date Type Department Care Team (Late st Contact Info) Description 11/02/2024 9:45 AM EDT Office Visit [facility] [address] [place] [phone] Anny Carcamo MD [address] [place] [phone] documented as of this encounter Visit Diagnoses Not on filedocumented in this encounter Additional Health Concerns Assessment Noted Time PHQ-9 Depression Total Score: 0 06/23/20 23 2:52 PM EST documented as of this encounter Care Teams Vocational Childcare Teacher Relationship Specialty Start Date End Date Anny Carcamo MD [address] [place] [address] PCP - General Family Medicine 01/20/14 documented as of this encounter
--- OUTSIDE RECORDS SUMMARY | 2024-09-29 16:16 | XMS_ITS | Encounter Summary ---
Author Organization [employer] Address [address] [facility] 7t [place] [address] Care Team Providers Care Compliance Manager Name Role Phone Anny Carcamo MD Primary Care Provider [phone] Reason for Referral * Consultation (Routine) - Closed Specialty Diagnoses / Procedures Referred By Contveronica t Referred To Contact Obstetrics and Gynecology Diagnoses Abnormal uterine bleeding (AUB) Fibroid Anny Carcamo MD [address] [place] [address] Phone: tel: fax: [facility] [address] 5[address] (Main Hospital Entrance) [place], [place] Phone: tel: fax: Referral ID Status Reason Start Date Expiration Date V isits Requested Visits Authorized [id number] Closed Specialty Services Required 12/18/2023 12/17/2024 1 1 Encounter Details Date Type Department Care Team (Late st Contact Info) Description 12/18/2023 Orders Only [facility] [address] [place], [place] [phone] Anny Carcamo MD [address] [place], [place] [phone] Abnormal uterine bleeding (AUB) (Primary Dx); Fibroid; Anemia, unspecified type Social History Tobacco Use Types Packs/Day Years [...] as of this encounter Miscellaneous Notes * Assessment & Plan Note - Anny Carcamo MD - 12/18/2023 10:36 AM EDTAssociated Problem(s): Abnormal uterine bleeding (AUB) - oligomenorrhea rather than menorrhagia, question of PCOS - 11/02/23 Pelvic US 1. 1.2 cm exophytic fibroid extends off the uterine fundus. 2. Normal ovaries. - refer to UI UX ENGINEER - PAP at next visit * Assessment & Plan Note - Anny Carcamo MD - 12/18/2023 10:34 AM EDTAssociated Problem(s): Fibroid - 11/02/23 Pelvic US showed 1.2 cm exophytic fibroid extends off the uterine fundus. - referred to UI UX ENGINEER documented in this encounter Plan of Treatment Upcoming Encounters Date Type Department Care Team (Late st Contact Info) Description 11/02/2024 9:45 AM EDT Office Visit [facility] [address] [place] [address] Anny Carcamo MD [address] [place] [address] Scheduled Referrals Name Type Priority Associated Diagnoses Order Schedule Referral to Obstetrics / Gynecology Outpatient Referral Routine Abnormal uterine bleeding (AUB) Fibroid Expected: 12/18/2023 (Approximate), Expires: 12/17/2024 documented as of this encounter Procedures Procedure Name Priority Date/Time Associated Diagnosis Comments VITAMIN B12/FOLATE, SERUM PANEL Routine 02/16/2024 4:00 PM EDT Anemia, unspecified type CBC WITH AUTO DIFFERENTIAL Routine 02/16/2024 4:00 PM EDT Abnormal uterine bleeding (AUB) IRON AND TOTAL IRON BINDING CAPACITY Routine 02/16/2024 4:00 PM EDT Abnormal uterine bleeding (AUB) FERRITIN Routine 02/16/2024 4:00 PM EDT Abnormal uterine bleeding (AUB) documented in this encounter Results * Vitamin B12/Folate, Serum Panel (02/16/2024 4:00 PM EDT) Vitamin B12 303 200 - 900 pg/mL [facility] Comment:NORMAL 200-900 PG/ML INDETERMINATE 160-199 PG/ML DEFICIENT < 160 PG/ML Folate 9.0 > or = 4.0 ng/mL [facility] Comment:Reference Values:> o r = 4.0 ng/mL< 4.0 ng/mL suggests folate deficiency Methotrexate, aminopterin and folinic acid(leucovorin) are chemotherapeutic agents whose molecularstructures are similar to folate; therefore, the Architectfolate assay cannot be used for patients using these drugs. 02/16/2024 4:00 PM EDT 02/16/2024 5:46 PM EDT Anny Carcamo MD LAB BLOOD ORDERABLES Final Resul t Performing Organization Address [facility] Phone Number [facility] [address] [place] [phone] * Iron And Total Iron Binding Capacity (02/16/2024 4:00 PM EDT) Iron 84 30 - 160 mcg/dL [facility] Total Iron Binding Capacity 318 228 - 428 mcg/dL [facility] Percent Iron Saturation 26 15 - 50 % [facility] Unsaturated Iron Binding 234 ug/dL [facility] Blood Venous blood specimen / Unknown 02/16/2024 4:00 PM EDT 02/16/2024 5:46 PM EDT Anny Carcamo MD LAB BLOOD ORDERABLES Final Resul t Performing Organization Address [facility] Number [facility] [address] [place] [phone] * Ferritin (02/16/2024 4:00 PM EDT) Ferritin 113 10 - 250 ng/mL [facility] Blood Venous blood specimen / Unknown 02/16/2024 4:00 PM EDT 02/16/2024 5:46 PM EDT Anny Carcamo MD LAB BLOOD ORDERABLES Final Resul t Performing Organization Address [facility] Co de Phone Number [facility] [address] [place] [phone] * (ABNORMAL) CBC auto differential (02/16/2024 4:00 PM EDT) White Blood Count 8.7 4.8 - 10.8 X10*3/uL [facility] Red Blood Count 4.64 4.20 - 5.50 X10*6/uL [facility] Hemoglobin 13.0 12.0 - 16.0 g/dl [facility] Hematocrit 39.6 37.0 - 47.0 % [facility] Mean Corpuscular Volume 85.3 80.0 - 98.0 fL [facility] Mean Corpuscular Hemoglobin 28.0 27.0 - 33.0 pg [facility] Mean Corpuscular HGB Conc 32.8 31.0 - 35.0 g/dl [facility] Red Cell Distribution Width 13.1 11.0 - 16.0 % [facility] Platelet Count 308 160 - 400 X10*3/uL [facility] Mean Platelet Volume 9.7 9.4 - 12.3 fL [facility] Neutrophils Percent Auto 58.9 45 - 73 % [facility] Imm Gran Pct Auto 0.5(H) 0.0 - 0.4 % [facility] Lymphocytes Percent Auto 33.6 20 - 40 % [facility] Monocytes Percent Auto 5.7 2 - 11 % [facility] Eosinophils Percent Auto 1.0 0 - 4 % [facility] Basophils Percent Auto 0.3 0 - 2 % [facility] NRBC Pct Auto 0.0 0.0 - 0.2 /100WBC [facility] Neutrophils Absolute Auto 5.1 2.0 - 8.3 x10*3/uL [facility] Imm Gran Abs Auto 0.04(H) 0.00 - 0.03 X10*3/uL [facility] Lymphocytes Absolute Auto 2.9 1.2 - 4.9 X10*3/uL [facility] Monocytes Absolute Auto 0.5 0.1 - 1.2 X10*3/uL [facility] Eosinophils Absolute Auto 0.1 0.0 - 0.4 X10*3/uL [facility] Basophils Absolute Auto 0.0 0.0 - 0.2 X10*3/uL [facility] NRBC Abs Auto 0.000 0.0 - 0.012 X10*3/uL [facility] Blood Venous blood specimen / Unknown 02/16/2024 4:00 PM EDT 02/16/2024 5:46 PM EDT Anny Carcamo MD LAB BLOOD ORDERABLES Final Resul t [facility] [address] [place] [phone] documented in this encounter Visit Diagnoses Diagnosis Abnormal uterine bleeding (AUB)- Primary Fibroid Leiomyoma of uterus, unspecified Anemia, unspecified type documented in this encounter Additional Health Concerns Assessment Noted Time PHQ-9 Depression Total Score: 0 06/23/20 23 2:52 PM EST documented as of this encounter Care Teams Compliance Manager Relationship Specialty Start Date End Date Anny Carcamo MD [address] [place] [address] PCP - General Family Medicine 01/20/14 documented as of this encounter
--- OUTSIDE RECORDS SUMMARY | 2024-09-29 16:16 | XMS_ITS | Encounter Summary ---
Author Organization [employer] Address [address] [facility] [address] [place] [address] Care Team Providers Care Drier Unloader Name Role Phone Anny Carcamo MD Primary Care Provider [phone] Encounter Details Date Type Department Care Team (Late st Contact Info) Description 09/29/2024 Orders Only GENERIC EXTERNAL DATA DEPARTMENT Provider, Generic External Data Social History Tobacco Use Types Packs/Day Years [...] AM EDT documented as of this encounter Plan of Treatment Upcoming Encounters Date Type Department Care Team (Late st Contact Info) Description 11/02/2024 9:45 AM EDT Office Visit [facility] [address] [place] [address] Anny Carcamo MD [address] [place] [address] documented as of this encounter Procedures Procedure Name Priority Date/Time Associated Diagnosis Comments TSH W/REFLEX TO FT4 Routine 09/29/2024 1 :54 PM EDT CBC Routine 09/29/2024 1:54 PM EDT HCG, TOTAL, QN Routine 09/29/2024 1:54 PM EDT documented in this encounter Results * hCG, Total, Quantitative (09/29/2024 1:54 PM EDT) HCG Quantitative <2 mIU/mL [facility] Comment:Weeks post LMP Appro ximate hCG(Last Menstrual Period) Range (mIU/ml)3 - 4 weeks 9 - 1304 - 5 weeks 75 - 2,6005 - 6 weeks 850 - 20,8006 - 7 weeks 4000 - 100,2007 - 12 weeks 11,500 - 289,02322 - 16 weeks 18,300 - 137,71722 - 29 weeks (2nd trimester) 1,400 - 53,72126 - 41 weeks (3rd trimester) 940 - 60,000The Farley B- hCG assay is used for the early detection ofpregnancy; it cannot be used to diagnose any conditionunrelated to . If a B-hCG level is not supportedby the clinical evidence, results should be confirmed by analternative method (qualitative urine hCG, for example). 09/29/2024 1:54 PM EDT 09/29/2024 1:54 PM EDT us Generic External Data Provider LAB BLOOD ORDERAB LES Final Result Performing Organization Address City/[facility]/ZIP Co de Phone Number [facility] [address] [place] [phone] * TSH with Reflex to Free T4 (09/29/2024 1:54 PM EDT) TSH reflex Free T4 0.81 0.32 - 4.0 uIU/mL [facility] 09/29/2024 1:54 PM EDT 09/29/2024 1:54 PM EDT us Generic External Data Provider LAB BLOOD ORDERAB LES Final Result Performing Organization Address [facility] Co de Phone Number [facility] [address] [place] [phone] * CBC (09/29/2024 1:54 PM EDT) White Blood Count 9.0 4.8 - 10.8 X10*3/uL [facility] Red Blood Count 4.54 4.20 - 5.50 X10*6/uL [facility] Hemoglobin 12.4 12.0 - 16.0 g/dl [facility] Hematocrit 37.7 37.0 - 47.0 % [facility] Mean Corpuscular Volume 83.0 80.0 - 98.0 fL [facility] Mean Corpuscular Hemoglobin 27.3 27.0 - 33.0 pg [facility] Mean Corpuscular HGB Conc 32.9 31.0 - 35.0 g/dl [facility] Red Cell Distribution Width 14.3 11.0 - 16.0 % [facility] Platelet Count 324 160 - 400 X10*3/uL [facility] Mean Platelet Volume 9.5 9.4 - 12.3 fL [facility] NRBC Pct Auto 0.0 0.0 - 0.2 /100WBC [facility] NRBC Abs Auto 0.000 0.0 - 0.012 X10*3/uL [facility] 09/29/2024 1:54 PM EDT 09/29/2024 1:54 PM EDT us Generic External Data Provider LAB BLOOD ORDERAB LES Final Result [facility] [address] [place] [phone] documented in this encounter Visit Diagnoses Not on filedocumented in this encounter Additional Health Concerns Assessment Noted Time PHQ-9 Depression Total Score: 7 02/16/20 24 3:24 PM EDT documented as of this encounter Care Teams Drier Unloader Relationship Specialty Start Date End Date Anny Carcamo MD [address] [place] [phone] PCP - General Family Medicine 01/20/14 documented as of this encounter
--- OUTSIDE RECORDS SUMMARY | 2024-09-29 16:16 | XMS_ITS | Encounter Summary ---
Author Organization [employer] Address [address] [facility] 7t [place] [address] Care Team Providers Care Welt Wheeler Name Role Phone Anny Carcamo MD Primary Care Provider [phone] Reason for Visit * Reason Comments Med Refill Encounter Details Date Type Department Care Team ([facility] st Contact Info) Description 09/08/[address] [facility] [address] [place], [place] [phone] Anny Carcamo MD [address] [place], [place] [phone] Nonintractable headache, unspecified chronicity pattern, unspecified headache type Social History Tobacco Use Types Packs/Day [...] Description 11/02/2024 9:45 AM EDT Office Visit [facility] [address] [place] [address] Anny Carcamo MD [address] [place] [address] documented as of this encounter Visit Diagnoses Diagnosis Nonintractable headache, unspecified chronicity pattern, unspecified headache type documented in this encounter Additional Health Concerns Assessment Noted Time PHQ-9 Depression Total Score: 7 02/16/20 24 3:24 PM EDT documented as of this encounter Care Teams Welt Wheeler Relationship Specialty Start Date End Date Anny Carcamo MD [address] [place] [phone] PCP - General Family Medicine 01/20/14 documented as of this encounter
--- OUTSIDE RECORDS SUMMARY | 2024-09-29 16:16 | XMS_ITS | Encounter Summary ---
Author Organization [facility] Address [address] [facility] 7t [place] [address] Care Team Providers Care Marine Erector Name Role Phone Anny Carcamo MD Primary Care Provider [phone] Encounter Details Date Type Department Care Team (Latest Contact Info) Description 12/21/2018 Abstract [facility] CONVERSIONS Dental, Provider, DDS Social History Tobacco Use Types Packs/Day Years Used Date Smoking Tobacco: Never Assessed Comments Unknown Sex and Gender Information Value [...] Description 11/02/2024 9:45 AM EDT Office Visit [facility] [address] [place] [address] Anny Carcamo MD [address] [place] [address] documented as of this encounter Visit Diagnoses Not on filedocumented in this encounter Care Teams Marine Erector Relationship Specialty Start Date End Date Anny Carcamo MD [address] [place] [address] PCP - General Family Medicine 01/20/14 documented as of this encounter
--- OUTSIDE RECORDS SUMMARY | 2024-09-29 16:16 | XMS_ITS | Encounter Summary ---
Author Organization [employer] Address [address] [facility] [address]t [place] [address] Care Team Providers Care Marketing Professional Name Role Phone Anny Carcamo MD Primary Care Provider [phone] Reason for Visit * Reason Comments Med Refill Encounter Details Date Type Department Care Team ([facility] st Contact Info) Description 07/20/2024 Refill [facility] [address] [place], [place] [phone] Anny Carcamo MD [address] [place], [place] [phone] Social History Tobacco Use Types Packs/Day Years [...] Description 11/02/2024 9:45 AM EDT Office Visit [facility] [address] [place] [address] Anny Carcamo MD [address] [place] [address] documented as of this encounter Visit Diagnoses Not on filedocumented in this encounter Additional Health Concerns Assessment Noted Time PHQ-9 Depression Total Score: 7 02/16/20 24 3:24 PM EDT documented as of this encounter Care Teams Marketing Professional Relationship Specialty Start Date End Date Anny Carcamo MD [address] [place] [address] PCP - General Family Medicine 01/20/14 documented as of this encounter
== END 2024-09-29 13:53 | disposition home or self-care (01) ==
LOC: HO.HWS 13:09
PROVIDERS: PCP Family Medicine; Visit Provider Obstetrics & Gynecology
DX: N93.9 Abnormal uterine and vaginal bleeding, unspecified (principal); Z32.02 Encounter for pregnancy test, result negative
CPT/HCPCS: 99203

== ENCOUNTER 2024-09-29 13:09 | Outpatient (REF) | payer OTHER, SELFPAY ==
[2024-09-29 14:18] LABS: Hematocrit 37.7 % (37.0-47.0); Hemoglobin 12.4 g/dl (12.0-16.0); Mean Corpuscular HGB Conc 32.9 g/dl (31.0-35.0); Mean Corpuscular Hemoglobin 27.3 pg (27.0-33.0); Mean Platelet Volume 9.5 fL (9.4-12.3); Platelet Count 324 X10*3/uL (160-400); Red Blood Count 4.54 X10*6/uL (4.20-5.50); Red Cell Distribution Width 14.3 % (11.0-16.0)
[2024-09-29 15:06] LABS: HCG Quantitative < 2 mIU/mL; TSH reflex Free T4 0.81 uIU/mL (0.32-4.0)
== END 2024-09-29 13:10 | disposition home or self-care (01) ==
LOC: HO.LAB 13:09
PROVIDERS: PCP Family Medicine; Visit Provider Obstetrics & Gynecology
DX: Z13.89 Encounter for screening for other disorder (principal)
CPT/HCPCS: 36415; 81025; 84443; 84702; 85027; 99202

== ENCOUNTER 2024-09-29 13:53 | Outpatient (REF) | payer OTHER, SELFPAY ==
[2024-09-29 17:30] LABS: CT PCR NOT DETECTED (Not Detect.); NG PCR NOT DETECTED (Not Detect.)
[2024-10-04 14:34] LABS: HPV Genotype 16 Negative (Negative); HPV Genotype 18 Negative (Negative); HPV High Risk Negative (Negative)
== END 2024-09-29 13:54 | disposition home or self-care (01) ==
LOC: HO.LNP 13:53
PROVIDERS: Visit Provider Obstetrics & Gynecology
DX: N93.9 Abnormal uterine and vaginal bleeding, unspecified (principal)
CPT/HCPCS: 36415; 81025; 84443; 84702; 85027; 87491; 87591; 87626; 88175; 99202

== ENCOUNTER 2024-10-26 12:44 | Outpatient (REF) | payer OTHER, SELFPAY ==
--- NOTE | ~2024-10-26 | US_ITS ---
CLINICAL HISTORY: N93.9 - Abnormal uterine and vaginal bleeding, unspecified Ultrasound pelvis transabdominal and transvaginal. COMPARISON: US pelvis dated 11/02/23 at 14:37 EDT Technique: Real time sonographic imaging, including color-flow imaging, was performed by the chief operator reformer. Multiple screening representative static images were saved for review. FINDINGS: Anteverted uterus measures 7.8 x 4.0 x 4.4 cm. Exophytic uterine fibroid along the fundus measuring 1.5 x 1.3 x 1.0 cm, previously measured 1.2 x 0.9 x 1.2 cm. Uterine fibroid along the anterior aspect of the uterine body measuring 0.9 x 0.9 x 1.4 cm, not definitively identified on prior imaging. Endometrium: 4 mm, normal. Right ovary appears normal and measures 2.2 x 1.3 x 2.0 cm. No right adnexal mass identified. Left ovary appears normal and measures 2.8 x 1.9 x 1.7 cm. No left adnexal mass identified. Normal appearing physiologic follicles/cysts. No free fluid identified in the pelvic cul-de-sac. IMPRESSION: 1. No cause for patient's symptoms identified. No evidence of ovarian torsion. 2. Fibroid uterus. This document has been electronically signed by: Nobrerto Hankins MD on 10/28/2024 13:56:58
--- OUTSIDE RECORDS SUMMARY | 2024-10-26 15:00 | XMS_ITS | Encounter Summary ---
Author Organization [employer] Address [address] [facility] 7t [place] [address] Care Team Providers Care Wedding Coordinator Name Role Phone Anny Carcamo MD Primary Care Provider [phone] Reason for Referral * Consultation (Routine) - Closed Specialty Diagnoses / Procedures Referred By Contveronica t Referred To Contact Obstetrics and Gynecology Diagnoses Abnormal uterine bleeding (AUB) Fibroid Anny Carcamo MD [address] [place] [address] Phone: tel: fax: [facility] [address] 5[address] (Main Hospital Entrance) [place], [place] Phone: tel: fax: Referral ID Status Reason Start Date Expiration Date V isits Requested Visits Authorized [id number] Closed Specialty Services Required 12/18/2023 12/17/2024 1 1 Encounter Details Date Type Department Care Team (Late st Contact Info) Description 12/18/2023 Orders Only [facility] [address] [place], [place] [phone] Anny Carcamo MD [address] [place], [place] [phone] Abnormal uterine bleeding (AUB) (Primary Dx); Fibroid; [...] fundus. 2. Normal ovaries. - refer to ELECTRONIC IMAGER - PAP at next visit * Assessment & Plan Note - Anny Carcamo MD - 12/18/2023 10:34 AM EDTAssociated Problem(s): Fibroid - 11/02/23 Pelvic US showed 1.2 cm exophytic fibroid extends off the uterine fundus. - referred to ELECTRONIC IMAGER documented in this encounter Plan of Treatment Upcoming Encounters Date Type Department Care Team (Late st Contact Info) Description 11/02/2024 9:45 AM EDT Office Visit [facility] [address] [place] [address] Anny Carcamo MD [address] [place] [address] Scheduled Referrals Name Type Priority Associated Diagnoses [...] Vitamin B12 303 200 - 900 pg/mL [facility] Comment:NORMAL 200-900 PG/ML INDETERMINATE 160-199 PG/ML DEFICIENT < 160 PG/ML Folate 9.0 > or = 4.0 ng/mL [facility] Comment:Reference Values:> o r = 4.0 ng/mL< 4.0 ng/mL suggests folate deficiency Methotrexate, aminopterin and folinic acid(leucovorin) are chemotherapeutic agents whose molecularstructures are similar to folate; therefore, the Architectfolate assay cannot be used for patients using these drugs. 02/16/2024 4:00 PM EDT 02/16/2024 5:46 PM EDT Anny Carcamo MD LAB BLOOD ORDERABLES Final Resul t Performing Organization Address [facility] Phone Number [facility] [address] [place] [phone] * Iron And Total Iron Binding Capacity (02/16/2024 4:00 PM EDT) Iron 84 30 - 160 mcg/dL [facility] Total Iron Binding Capacity 318 228 - 428 mcg/dL [facility] Percent Iron Saturation 26 15 - 50 % [facility] Unsaturated Iron Binding 234 ug/dL [facility] Blood Venous blood specimen / Unknown 02/16/2024 4:00 PM EDT 02/16/2024 5:46 PM EDT Anny Carcamo MD LAB BLOOD ORDERABLES Final Resul t Performing Organization Address [facility] Number [facility] [address] [place] [phone] * Ferritin (02/16/2024 4:00 PM EDT) Ferritin 113 10 - 250 ng/mL [facility] Blood Venous blood specimen / Unknown 02/16/2024 4:00 PM EDT 02/16/2024 5:46 PM EDT Anny Carcamo MD LAB BLOOD ORDERABLES Final Resul t Performing Organization Address [facility] Co de Phone Number [facility] [address] [place] [phone] * (ABNORMAL) CBC auto differential (02/16/2024 4:00 PM EDT) White Blood Count 8.7 4.8 - 10.8 X10*3/uL [facility] Red Blood Count 4.64 4.20 - 5.50 X10*6/uL [facility] Hemoglobin 13.0 12.0 - 16.0 g/dl [facility] Hematocrit 39.6 37.0 - 47.0 % [facility] Mean Corpuscular Volume 85.3 80.0 - 98.0 fL [facility] Mean Corpuscular Hemoglobin 28.0 27.0 - 33.0 pg [facility] Mean Corpuscular HGB Conc 32.8 31.0 - 35.0 g/dl [facility] Red Cell Distribution Width 13.1 11.0 - 16.0 % [facility] Platelet Count 308 160 - 400 X10*3/uL [facility] Mean Platelet Volume 9.7 9.4 - 12.3 fL [facility] Neutrophils Percent Auto 58.9 45 - 73 % [facility] Imm Gran Pct Auto 0.5(H) 0.0 - 0.4 % [facility] Lymphocytes Percent Auto 33.6 20 - 40 % [facility] Monocytes Percent Auto 5.7 2 - 11 % [facility] Eosinophils Percent Auto 1.0 0 - 4 % [facility] Basophils Percent Auto 0.3 0 - 2 % [facility] NRBC Pct Auto 0.0 0.0 - 0.2 /100WBC [facility] Neutrophils Absolute Auto 5.1 2.0 - 8.3 x10*3/uL [facility] Imm Gran Abs Auto 0.04(H) 0.00 - 0.03 X10*3/uL [facility] Lymphocytes Absolute Auto 2.9 1.2 - 4.9 X10*3/uL [facility] Monocytes Absolute Auto 0.5 0.1 - 1.2 X10*3/uL [facility] Eosinophils Absolute Auto 0.1 0.0 - 0.4 X10*3/uL [facility] Basophils Absolute Auto 0.0 0.0 - 0.2 X10*3/uL [facility] NRBC Abs Auto 0.000 0.0 - 0.012 X10*3/uL [facility] Blood Venous blood specimen / Unknown 02/16/2024 4:00 PM EDT 02/16/2024 5:46 PM EDT Anny Carcamo MD LAB BLOOD ORDERABLES Final Resul t [facility] [address] [place] [phone] documented in this encounter Visit Diagnoses Diagnosis Abnormal uterine bleeding (AUB)- Primary Fibroid Leiomyoma of uterus, unspecified Anemia, unspecified type documented in this encounter Additional Health Concerns Assessment Noted Time PHQ-9 Depression Total Score: 0 06/23/20 23 2:52 PM EST documented as of this encounter Care Teams Wedding Coordinator Relationship Specialty Start Date End Date Anny Carcamo MD [address] [place] [phone] PCP - General Family Medicine 01/20/14 documented as of this encounter
--- OUTSIDE RECORDS SUMMARY | 2024-10-26 15:00 | XMS_ITS | Encounter Summary ---
Author Organization [employer] Address [address] [facility] 7t [place] [address] Care Team Providers Care Regulatory Affairs Associate Name Role Phone Anny Carcamo MD Primary Care Provider [phone] Reason for Visit * Reason Onset Date Comments Returning Call 10/15/2023 Encounter Details Date Type Department Care Team ([facility] st Contact Info) Description 10/15/2023 Telephone [facility] [address] [place] [address] Anny Carcamo MD [address] [place] [address] Returning Call Social History Tobacco Use Types [...] Direct contactinformation provided. Please contact pt at [phone] documented in this encounter Plan of Treatment Upcoming Encounters Date Type Department Care Team (Late st Contact Info) Description 11/02/2024 9:45 AM EDT Office Visit [facility] [address] [place] [phone] Anny Carcamo MD [address] [place] [phone] documented as of this encounter Visit Diagnoses Not on filedocumented in this encounter Additional Health Concerns Assessment Noted Time PHQ-9 Depression Total Score: 0 06/23/20 23 2:52 PM EST documented as of this encounter Care Teams Regulatory Affairs Associate Relationship Specialty Start Date End Date Anny Carcamo MD [address] [place] [phone] PCP - General Family Medicine 01/20/14 documented as of this encounter
--- OUTSIDE RECORDS SUMMARY | 2024-10-26 15:01 | XMS_ITS | Encounter Summary ---
Author Organization [employer] Address [address] [facility] 7t [place] [address] Care Team Providers Care Sheet Metal Superintendent Name Role Phone Anny Carcamo MD Primary Care Provider Reason for Visit * Reason Comments Med Refill Encounter Details Date Type Department Care Team ([facility] st Contact Info) Description 07/20/2024 Refill [facility] [address] [place], [place] [phone] Anny Carcamo MD [address] [place], [place] [phone] Social History Tobacco Use Types Packs/Day Years [...] Description 11/02/2024 9:45 AM EDT Office Visit [facility] [address] [place] [address] Anny Carcamo MD [address] [place] [address] documented as of this encounter Visit Diagnoses Not on filedocumented in this encounter Additional Health Concerns Assessment Noted Time PHQ-9 Depression Total Score: 7 02/16/20 24 3:24 PM EDT documented as of this encounter Care Teams Sheet Metal Superintendent Relationship Specialty Start Date End Date Anny Carcamo MD [address] [place] [address] PCP - General Family Medicine 01/20/14 documented as of this encounter
--- OUTSIDE RECORDS SUMMARY | 2024-10-26 15:01 | XMS_ITS | Clinical Summary ---
Author Organization [employer] Address [address] [place] [address] 7t [place] [address] Care Team Providers Care Conference Assistant Name Role Phone Anny Carcamo MD Primary Care Provider [phone] Allergies No known active allergies Medications albuterol [...] TWICE DAILY NEEDED FOR PAIN 60 tablet 10/13/19 25 Active naproxen (Naprosyn) 500 MG tabletIndicati ons:Nonintract able headache, unspecified chronicity pattern, unspecified headache type TAKE 1 TABLET(500 MG) BY MOUTH TWICE DAILY NEEDED FOR PAIN 60 tablet 09/09/19 25 025 Discontinued Active Problems Problem Noted [...] off the uterine fundus. - referred to PRODUCT MARKETING COORDINATOR Assessment & Plan (12/18/2023 10:34 AM EDT): - 11/02/23 Pelvic US showed 1.2 cm exophytic fibroid extends off the uterine fundus. - referred to PRODUCT MARKETING COORDINATOR Abnormal uterine bleeding (AUB) 10/28/2023 Assessment & Plan (02/16/2024 3:51 PM EDT): - oligomenorrhea rather than menorrhagia, question of PCOS - 11/02/23 Pelvic US 1. 1.2 cm exophytic fibroid extends off the uterine fundus. 2. Normal ovaries. - refer to PRODUCT MARKETING COORDINATOR - check anemia lab Assessment & Plan (12/18/2023 10:36 AM EDT): - oligomenorrhea rather than menorrhagia, question of PCOS - 11/02/23 Pelvic US 1. 1.2 cm exophytic fibroid extends off the uterine fundus. 2. Normal ovaries. - refer to PRODUCT MARKETING COORDINATOR - PAP at next visit Assessment & [...] Encounters Date Type Department Care Team Description 10/20/2024 Patient Outreach [facility] [address] [place] [address] Anny Carcamo MD Pre-visit Planning ([facility] unable to reach [facility] ) 10/12/2024 Refill [facility] [address] [place] [address] Anny Carcamo MD Nonintractable headache, unspecified chronicity pattern, unspecified headache type 09/29/2024 Orders Only GENERIC EXTERNAL DATA DEPARTMENT Provider, Generic External Data 09/08/2024 Refill [facility] [address] [place] [address] Anny Carcamo MD Nonintractable headache, unspecified chronicity pattern, unspecified headache type 08/09/2024 Refill [facility] [address] [facility] [place] [phone] Anny Carcamo MD Nonintractable headache, unspecified chronicity [...] Description 11/02/2024 9:45 AM EDT Office Visit [facility] [address] [place], [place] [phone] Anny Carcamo MD [address] [place] [address] Health Maintenance Due Date Last Done Comments [...] 10/14/2024 10/15/2023 Depression Screening 02/15/2025 02/16/2024, 02/16/20 Tobacco Screening 02/15/2025 02/16/2024 Pap Smear 05/19/2025 [...] Free T4 0.81 0.32 - 4.0 uIU/mL [facility] 09/29/2024 1:54 PM EDT 09/29/2024 1:54 PM EDT us Generic External Data Provider LAB BLOOD ORDERAB LES Final Result [facility] [address] [place] [phone] * CBC (09/29/2024 1:54 PM EDT) White Blood Count 9.0 4.8 - 10.8 X10*3/uL [facility] Red Blood Count 4.54 4.20 - 5.50 X10*6/uL [facility] Hemoglobin 12.4 12.0 - 16.0 g/dl [facility] Hematocrit 37.7 37.0 - 47.0 % [facility] Mean Corpuscular Volume 83.0 80.0 - 98.0 fL [facility] Mean Corpuscular Hemoglobin 27.3 27.0 - 33.0 pg [facility] Mean Corpuscular HGB Conc 32.9 31.0 - 35.0 g/dl [facility] Red Cell Distribution Width 14.3 11.0 - 16.0 % [facility] Platelet Count 324 160 - 400 X10*3/uL [facility] Mean Platelet Volume 9.5 9.4 - 12.3 fL [facility] NRBC Pct Auto 0.0 0.0 - 0.2 /100WBC [facility] NRBC Abs Auto 0.000 0.0 - 0.012 X10*3/uL [facility] 09/29/2024 1:54 PM EDT 09/29/2024 1:54 PM EDT us Generic External Data Provider LAB BLOOD ORDERAB LES Final Result [facility] [address] [place] [phone] * hCG, Total, Quantitative (09/29/2024 1:54 PM EDT) HCG Quantitative <2 mIU/mL [facility] Comment:Weeks post LMP Appro ximate hCG(Last Menstrual Period) Range (mIU/ml)3 - 4 weeks 9 - 1304 - 5 weeks 75 - 2,6005 - 6 weeks 850 - 20,8006 - 7 weeks 4000 - 100,2007 - 12 weeks 11,500 - 289,37639 - 16 weeks 18,300 - 137,25407 - 29 weeks (2nd trimester) 1,400 - 53,54615 - 41 weeks (3rd trimester) 940 - [...] Provider LAB BLOOD ORDERAB LES Final Result [facility] [address] [place] [phone] [phone] * BI Mammogram Screening Tomosynthesis Bilateral (07/31/2023 12:50 PM EST) Anatomical Region Laterality Modality Breast Bilateral Mammography 07/31/2023 12:5 0 PM EST Narrative 08/17/2023 6:29 AM EST ? [facility] [place] ? [address] ?[place] [address] ? Mammography Report ? Signed ? Patient: Jarad,Kay ?MR#: [id number] ?? [id number] ? : 1985 ?Acct:[id number] ? Age/Sex: 38 / F ?ADM Date: //24 ? Loc: HO.MAMMO ? Attending Dr: Anny Carcamo MD ? Ordering Physician: Anny Carcamo MD ?Results: 1Negative ? Date of Service: 07/31/23 ?Follow Up: 1 Year From Orig ?? inal Mammogram ? Procedure(s): MM tomosynthesis screening BI ?? Accession Number(s): [id number] ? cc: Anny Carcamo MD ? EXAMINATION: [...] 08/17/23624 ? DD/ 1250 ? TD/TT: ? Calenderer: ? Procedure Note Aureliano Chavez - 08/17/2023 [facility] [address] [place] [address] Mammography Report Signed Patient: Kay AbrahamMR#: [id number] : 1985Acct:[id number] Age/Sex: 38 / FADM Date: 07/31/23 Loc: HO.MAMMO Attending Dr: Anny Carcamo MD Ordering Physician: Anny Carcamo MDResults: 1Negative Date of Service: 07/31/23Follow Up: 1 Year From Orig ina Mammogram Procedure(s): MM tomosynthesis screening BI Accession Number(s): [id number] cc: Anny Carcamo MD EXAMINATION: MM SCREENING [...] in OV> 08/17/23 0625 DD/ 1250 TD/TT: Calenderer: us Anny Carcamo MD IMG BI PROCEDURES Final Result * (ABNORMAL) Lipid Panel with Reflex to Direct LDL (06/23/2023 3:56 PM EST) Triglycerides 142 <150 mg/dL [facility] Comment:Desirable Triglyceri de: less than 150 mg/dLBorderline High Triglyceride 150-199 mg/dLHigh Triglyceride: 200-499 mg/dLVery High Triglyceride: greater than or equal to 5OO mg/dL Cholesterol 189 <200 mg/dL [facility] Comment:Desirable Cholestero l: less than 200 mg/dLBorderline High Cholesterol: 200-239 mg/dLHigh Cholesterol: greater than 239 mg/dL LDL Cholesterol Calculated 111(H) <100 mg/dL [facility] Comment:Desirable LDL: less than 100 mg/dLNear Optimal/Above Optimal LDL: 110- 129 mg/dLBorderline High LDL: 130-159 mg/dLHigh LDL: 160-189 mg/dLVery High LDL: greater than or equal to 190 mg/dL HDL Cholesterol 50 >40 mg/dL [facility] Comment:Desirable HDL: great er than 40 mg/dL Note: This HDL assay may give artificially low results in patients with liver disease. Blood 06/23/2023 3:56 PM EST 06/23/2023 5:41 PM EST us Anny Carcamo MD LAB BLOOD ORDERABLES Final Resul t [facility] [address] [place] [phone] * THINPREP TIS PAP AND HPV [...] with computer assisted technology. CONVERTED LEGACY LABS Tar Worker : SEE COMMENT CONVERTED LEGACY LABS Comment: MSM, CT(ASCP) CT screening location: [address] ??[address] HPV nRNA E6/E7 Not Detected Not Detected CONVERTED [facility]GACY LABS Comment: Methodology: Zipper Setter Lockstitch-Mediated Amplification This assay detects E6/E7 viral messenger RNA (mRNA) from 14 high-risk HPV types (16,18,31,33,35,39,45,51,52,56,58,59,66,68). ? Cervical sources are required for HPV testing. If a vaginal source from a patient who has had a total hysterectomy with removal of cervix was ?? submitted, please contact the testing laboratory for alternative testing options. ?? For additional information, please refer to http://[employer]/faq/CLH032g9 (This link if provided for information/ educational [...] PATHOLOGY ORDERABLES Final Result Performing Organization Address City/State/[facility] Co de Phone Number CONVERTED LEGACY [...] a test for HCV RNA (test code 56319) is suggested. ?? For additional information please refer to http://[employer]/faq/PLW82h0 (This link is being provided for informational/ educational purposes only.) ?? 04/10/2022 11:4 9 AM EDT Anny Carcamo MD HISTORICAL/NON ORDERABLE LABS Fi nal Result CONVERTED LEGACY LABS * HIV 1/2 ANTIGEN/ANTIBODY,FOURTH [...] ? For additional information please refer to http://education.Azend[employer]/faq/WJK340 (This link is being provided for informational/ educational purposes only.) ? The performance of this assay has not been clinically validated in patients less than 2 years old. ?? 04/10/2022 11:4 9 AM EDT Anny Carcamo MD LAB BLOOD ORDERABLES Final Resul t Performing Organization Address City/[facility]/ZIP Co de Phone Number CONVERTED LEGACY LABS from Last 3 Months or Most Recently Relevant to Health Maintenance Insurance [facility] Care Teams Conference Assistant Relationship Specialty Start Date End Date Anny Carcamo MD [address] [place], [place] [phone] PCP - General Family Medicine 01/20/14
--- OUTSIDE RECORDS SUMMARY | 2024-10-26 15:01 | XMS_ITS | Encounter Summary ---
Author Organization [facility] Address [address] [facility] 7t [place] [address] Care Team Providers Care Education Analyst Name Role Phone Anny Carcamo MD Primary Care Provider [phone] Encounter Details Date Type Department Care Team (Latest Contact Info) Description 12/21/2018 Abstract [facility] CONVERSIONS Dental, Provider, DDS Social History Tobacco [...] Description 11/02/2024 9:45 AM EDT Office Visit [facility] [address] [place] [address] Anny Carcamo MD [address] [place] [address] documented as of this encounter Visit Diagnoses Not on filedocumented in this encounter Care Teams Education Analyst Relationship Specialty Start Date End Date Anny Carcamo MD [address] [place] [address] PCP - General Family Medicine 01/20/14 documented as of this encounter
== END 2024-10-26 12:45 | disposition home or self-care (01) ==
LOC: HO.US 12:44
PROVIDERS: PCP Family Medicine; Visit Provider Obstetrics & Gynecology
DX: N93.9 Abnormal uterine and vaginal bleeding, unspecified (principal)
CPT/HCPCS: 76830; 76856

== ENCOUNTER → 2024-10-26 12:45 | Outpatient (BNV) | payer OTHER, SELFPAY | PROVIDERS: PCP Family Medicine; Visit Provider Radiology Diagnostic Radiology | DX: N93.9 Abnormal uterine and vaginal bleeding, unspecified (principal) | CPT/HCPCS: 76830; 76856 ==

== ENCOUNTER 2024-11-02 10:57 | Outpatient (REF) | payer OTHER, SELFPAY ==
--- OUTSIDE RECORDS SUMMARY | 2024-11-02 12:33 | XMS_ITS | Encounter Summary ---
Author Organization [employer] Address [address] [facility] [address] [place] [address] Care Team Providers Care Bark Peeler Name Role Phone Anny Carcamo MD Primary Care Provider [phone] Encounter Details Date Type Department Care Team ([facility] st Contact Info) Description 11/02/2024 9:45 AM EDT Office Visit [facility] [address], [place] [phone] Anny Carcamo MD [address] [place], [place] [phone] Mild intermittent asthma without complication (Primary Dx); Elevated BP without diagnosis of hypertension; Hemorrhoids, unspecified hemorrhoid type; Abnormal uterine bleeding (AUB); History of kidney stones; Impaired fasting glucose; Hypertrophy of tonsils; Allergic rhinitis, unspecified seasonality, unspecified trigger; Fibroid; Depression, recurrent (CMS/HCC); Learning disability; Migraine without status migrainosus, not intractable, unspecified migraine type; Screening for lipid disorders; Screening for diabetes mellitus Social History Tobacco Use Types Packs/Day Years [...] the past 12 months, has t he [employer], [employer], oil or water [employer] threatened to shut off services in your home? No 06/23/2023 Depression Answer Date Recorded Patient Health Questionnaire-2 Score 2 02/16/2024 Comments Unknown Sex and Gender Information Value Date Recorded Sex Assigned at Female 05/05/2022 10:17 AM EDT Legal Sex Female 10:17 AM EDT Gender Identity Female 05/05/2022 10:17 AM EDT Sexual Orientation Straight 05/05/2022 10 :17 AM EDT documented as of this encounter Last Filed Vital Signs Vital Sign Reading Time Taken Comments Blood Pressure 144/86 11/02/2024 10:29 AM EDT Pulse 80 11/02/2024 10:02 AM EDT Temperature 36.2 ??C (97.1 ??F) 11/02/2024 10:02 AM E DT Respiratory Rate 14 11/02/2024 10:02 AM EDT Oxygen Saturation - - Inhaled Oxygen Concentration - - Weight 87.1 kg (192 lb) 11/02/2024 10:02 AM EDT Height 158 cm (5' 2.21 ) 11/02/2024 10:02 AM EDT Body Mass Index 34.89 11/02/2024 10:02 AM EDT documented in this encounter Miscellaneous Notes * Assessment & Plan Note - Margoth Nolasco MA - 11/02/2024 9:08 AM EDTAssociated Problem(s): Depression, recurrent (CMS/HCC) - PHQ9 score 7 - patient declines outpatient treatment * Assessment & Plan Note - Margoth Nolasco MA - 11/02/2024 9:08 AM EDTAssociated Problem(s): Fibroid - 11/02/23 Pelvic US showed 1.2 cm exophytic fibroid extends off the uterine fundus. - Pelvic US on 10/28/24 Fibroid uterus. Endometrium thickness 4 mm. - Evaluated by [employer] in September 2024 * Assessment & Plan Note - Margoth Nolasco MA - 11/02/2024 9:08 AM EDTAssociated Problem(s): Learning disability - pt states that she has been on social security disability since she was a child due to learning disability - ?autism spectrum disorder (Asperger's ?) - not engaged in BHS, and pt declines * Assessment & Plan Note - Margoth Nolasco MA - 11/02/2024 9:07 AM EDTAssociated Problem(s): Migraine - continue magnesium oxide - continue judicious use of NSAID prn * Assessment & Plan Note - Margoth Nolasco MA - 11/02/2024 9:07 AM EDTAssociated Problem(s): Allergic rhinitis -continue loratadine and fluticasone nasal * Assessment & Plan Note - Margoth Nolasco MA - 11/02/2024 9:07 AM EDTAssociated Problem(s): Hypertrophy of tonsils - patient declines sleep study or ENT evaluation * Assessment & Plan Note - Margoth Nolasco MA - 11/02/2024 9:07 AM EDTAssociated Problem(s): Impaired fasting glucose - 06/23/23 A1C 5.4%, improved - recent weight gain - work on lifestyle modifications * Assessment & Plan Note - Margoth Nolasco MA - 11/02/2024 9:06 AM EDTAssociated Problem(s): History of kidney stones - Incidental finding on previous CT, non-obstructive - adequate hydration * Assessment & Plan Note - Margoth Nolasco MA - 11/02/2024 9:06 AM EDTAssociated Problem(s): Abnormal uterine bleeding (AUB) - oligomenorrhea rather than menorrhagia, question of PCOS - 11/02/23 Pelvic US 1. 1.2 cm exophytic fibroid extends off the uterine fundus. 2. Normal ovaries. - evaluated by COTTON GINNER - Normal pap in September 2024 * Assessment & Plan Note - Margoth Nolasco MA - 11/02/2024 9:06 AM EDTAssociated Problem(s): Hemorrhoid - improve treatment for constipation - continue fiber-rich diet - will write script for adrienne jones - will refer to general surgeon for evaluation and management as requested by patient * Assessment & Plan Note - Margoth Nolasco MA - 11/02/2024 9:06 AM EDTAssociated Problem(s): Elevated BP without diagnosis of hypertension -Goal BP < 140/90 per JNC-8 and [...] 3-6 mo, sooner if any problem arises * Assessment & Plan Note - Margoth Nolasco MA - 11/02/2024 9:05 AM EDTAssociated Problem(s): Asthma - continue albuterol HFA prn (patient request ProAir because other inhalers are not effective as ProAir). documented in this encounter Plan of Treatment Upcoming Encounters Date Type Department Care Team (Late st Contact Info) Description 11/23/2024 2:00 PM EDT Clinical Support [facility] [address] [place] [id number] Scheduled Orders Name Type Priority Associated Diagnoses Orde r Schedule TSH with Reflex to Free T4 Lab Routine Elevated BP without diagnosis of hypertension Expected: 11/02/2024 (Approximate), Expires: 11/02/2025 Hemoglobin A1c Lab Routine Screening for diabetes mellitus Expected: 11/02/2024 (Approximate), Expires: 11/02/2025 Comprehensive Metabolic Panel Lab Routine Elevated BP without diagnosis of hypertension Expected: 11/02/2024 (Approximate), Expires: 11/02/2025 Lipid Panel with Reflex to Direct LDL Lab Routine Screening for lipid disorders Expected: 11/02/2024 (Approximate), Expires: 11/02/2025 Albumin, Random Urine W/Creatinine Lab Routine Elevated BP without diagnosis of hypertension Expected: 11/02/2024 (Approximate), Expires: 11/02/2025 documented as of this encounter Visit Diagnoses Diagnosis Mild intermittent asthma without complication- Primary Elevated BP without diagnosis of hypertension Hemorrhoids, unspecified hemorrhoid type Abnormal uterine bleeding (AUB) History of kidney stones Impaired fasting glucose Hypertrophy of tonsils Hypertrophy of tonsils alone Allergic rhinitis, unspecified seasonality, unspecified trigger Fibroid Leiomyoma of uterus, unspecified Depression, recurrent (CMS/HCC) Major depressive disorder, recurrent episode, unspecified Learning disability Other specific developmental learning difficulties Migraine without status migrainosus, not intractable, unspecified migraine type Screening for lipid disorders Screening for diabetes mellitus documented in this encounter Additional Health Concerns Assessment Noted Time PHQ-9 Depression Total Score: 7 02/16/20 24 3:24 PM EDT documented as of this encounter Care Teams Bark Peeler Relationship Specialty Start Date End Date Anny Carcamo MD [address] [place] [id number] PCP - General Family Medicine 01/20/14 documented as of this encounter
--- OUTSIDE RECORDS SUMMARY | 2024-11-02 12:33 | XMS_ITS | Clinical Summary ---
Author Organization [employer] Address [address] [place] [address] [address] [place] [address] Care Team Providers Care Telemarketing Manager Name Role Phone Anny Carcamo MD Primary Care Provider [phone] Allergies No known active allergies Medications albuterol [...] Date Depression, recurrent 02/21/2024 Assessment & Plan (11/02/2024 9:08 AM EDT): - PHQ9 score 7 - patient declines outpatient treatment Assessment & Plan (02/21/2024 3:17 PM EDT): - PHQ9 score 7 - patient declines outpatient treatment History of kidney stones 02/21/2024 Assessment & Plan (11/02/2024 9:06 AM EDT): - Incidental finding on previous CT, non-obstructive - adequate hydration Assessment & Plan (02/21/2024 3:15 PM EDT): - Incidental finding on previous CT, non-obstructive - adequate hydration Hemorrhoid 02/16/2024 Assessment & Plan (11/02/2024 9:06 AM EDT): - improve treatment for constipation - continue fiber-rich diet - will write script for donut cushion - will refer to general surgeon for evaluation and management as requested by patient Assessment & Plan (02/16/2024 3:53 PM EDT): - improve treatment for constipation - continue fiber-rich diet - will write script for donut cushion - will refer to general surgeon for evaluation and management as requested by patient Fibroid 12/18/2023 Assessment & Plan (11/02/2024 11:30 AM EDT): - 11/02/23 Pelvic US showed 1.2 cm exophytic fibroid extends off the uterine fundus. - Pelvic US on 10/28/24 Fibroid uterus. Endometrium thickness 4 mm. - Evaluated by Nurse Staff Industrial in September 2024 Assessment & Plan (02/16/2024 3:54 PM EDT): - 11/02/23 Pelvic US showed 1.2 cm exophytic fibroid extends off the uterine fundus. - referred to MANAGER LABOR DELIVERY Assessment & Plan (12/18/2023 10:34 AM EDT): - 11/02/23 Pelvic US showed 1.2 cm exophytic fibroid extends off the uterine fundus. - referred to MANAGER LABOR DELIVERY Abnormal uterine bleeding (AUB) 10/28/2023 Assessment & Plan (11/02/2024 11:29 AM EDT): - oligomenorrhea rather than menorrhagia, question of PCOS - 11/02/23 Pelvic US 1. 1.2 cm exophytic fibroid extends off the uterine fundus. 2. Normal ovaries. - evaluated by MANAGER LABOR DELIVERY - Normal pap in September 2024 Assessment & Plan (02/16/2024 3:51 PM EDT): - oligomenorrhea rather than menorrhagia, question of PCOS - 11/02/23 Pelvic US 1. 1.2 cm exophytic fibroid extends off the uterine fundus. 2. Normal ovaries. - refer to MANAGER LABOR DELIVERY - check anemia lab Assessment & Plan (12/18/2023 10:36 AM EDT): - oligomenorrhea rather than menorrhagia, question of PCOS - 11/02/23 Pelvic US 1. 1.2 cm exophytic fibroid extends off the uterine fundus. 2. Normal ovaries. - refer to MANAGER LABOR DELIVERY - PAP at next visit Assessment & Plan (10/28/2023 5:35 AM EDT): - oligomenorrhea rather than menorrhagia, question of PCOS - evaluate AUB with US - schedule PAP after she returns from her trip Elevated BP without diagnosis of hypertension Assessment & Plan (11/02/2024 9:06 AM EDT): -Goal BP < 140/90 per JNC-8 and < 130/80 per ACC/AHA guideline (Treatment threshold >=140/90) -BP not at goal initially, second measurement has improved, patient attributes to anxiety -Family hx HTN -Patient denies symptoms of ERKIA initially because she does not want to use CPAP. Patient become somewhat curious when we discussed about a part of evaluation for headache. -Continue working on lifestyle modifications -Recommended self-monitoring BP. -Follow up in 3-6 mo, sooner if any problem arises Assessment & Plan (02/16/2024 3:52 PM EDT): [...] modifications Learning disability 06/29/2023 Assessment & Plan (11/02/2024 9:08 AM EDT): - pt states that she has been on social security disability since she was a child due to learning disability - ?autism spectrum disorder (Asperger's ?) - not engaged in BHS, and pt declines Assessment & Plan (02/21/2024 3:18 PM EDT): [...] Allergic rhinitis 02/06/2015 06/17/2023 Assessment & Plan (11/02/2024 9:07 AM EDT): -continue loratadine and fluticasone nasal Assessment & Plan (02/16/2024 3:54 PM EDT): -continue loratadine and fluticasone nasal Assessment & Plan (10/28/2023 5:40 AM EDT): -continue loratadine and fluticasone nasal Assessment & Plan (06/29/2023 6:50 AM EST): -continue loratadine and fluticasone nasal Hypertrophy of tonsils 02/06/2015 Assessment & Plan (11/02/2024 9:07 AM EDT): - patient declines sleep study or ENT evaluation Assessment & Plan (10/28/2023 5:40 AM EDT): - patient declines sleep study or ENT evaluation Asthma 03/21/2013 06/17/2023 Assessment & Plan (11/02/2024 9:05 AM EDT): - continue albuterol HFA prn (patient request ProAir because other inhalers are not effective as ProAir). Assessment & Plan (02/16/2024 3:50 PM EDT): [...] fasting glucose 03/21/2013 023 Assessment & Plan (11/02/2024 9:07 AM EDT): - 06/23/23 A1C 5.4%, improved - recent weight gain - work on lifestyle modifications Assessment & Plan (02/16/2024 3:54 PM EDT): - 06/23/23 A1C 5.4%, improved - recent weight gain - work on lifestyle modifications Assessment & Plan (10/28/2023 5:58 AM EDT): - 06/23/23 A1C 5.4%, improved - recent weight gain - work on lifestyle modifications Assessment & Plan (06/29/2023 6:49 AM EST): - check lab - work on lifestyle modifications Migraine 03/21/2013 06/17/2023 Assessment & Plan (11/02/2024 9:07 AM EDT): - continue magnesium oxide - continue judicious use of NSAID prn Assessment & Plan (02/16/2024 3:54 PM EDT): [...] Encounters Date Type Department Care Team Description 11/02/2024 9:45 AM EDT Office Visit [facility] [address] [place] [phone] Anny Carcamo MD Mild intermittent asthma without complication (Primary Dx); Elevated BP without diagnosis of hypertension; Hemorrhoids, unspecified hemorrhoid type; Abnormal uterine bleeding (AUB); History of kidney stones; Impaired fasting glucose; Hypertrophy of tonsils; Allergic rhinitis, unspecified seasonality, unspecified trigger; Fibroid; Depression, recurrent (CMS/HCC); Learning disability; Migraine without status migrainosus, not intractable, unspecified migraine type; Screening for lipid disorders; Screening for diabetes mellitus 11/02/2024 Travel 11/01/2024 Telephone [facility] [address] [place], [place] [phone] Andre Kirkpatrick MA CHART PREP 10/20/2024 Patient Outreach [facility] [address] [place], [place] [phone] Anny Carcamo MD Pre-visit Planning (SDOH unable to reach [facility] ) 10/12/2024 Refill [facility] [address] [place], [place] [phone] Anny Carcamo MD Nonintractable headache, unspecified chronicity pattern, unspecified headache type 09/29/2024 Orders Only GENERIC EXTERNAL DATA DEPARTMENT Provider, Generic External Data 09/08/2024 Refill [facility] [address] [place] [address] Anny Carcamo MD Nonintractable headache, unspecified chronicity pattern, unspecified headache type 08/09/2024 Refill [facility] [address] [place] [address] Anny Carcamo MD Nonintractable headache, unspecified chronicity pattern, unspecified headache type from Last 3 Months Immunizations Name Administration Dates Next Due Influenza injectable quadriv alent IIV4 with preservative 08/10/2017 Influenza injectable quadrivalent preservative f ree 06/23/2023,04/10/2022 Influenza, Split (incl. purified surface antigen ) 03/21/2013 Moderna Covid-19 Vaccine 6+ Bivalent 07/23/2022 Pfizer Covid-19 Vaccine 12+ 11/02/2024 Pneumococcal Conjugate PCV 20 11/02/2024 Pneumococcal Polysaccharide PPSV23 02/06/2015 Tdap 06/23/2023,10/11/2009 Family [...] 14 11/02/2024 10:02 AM EDT Oxygen Saturation 99% 02/16/2024 3:09 PM EDT Inhaled Oxygen Concentration - - Weight 87.1 kg (192 lb) 11/02/2024 10:02 AM EDT Height 158 cm (5' 2.21 ) 11/02/2024 10:02 AM EDT Body Mass Index 34.89 11/02/2024 10:02 AM EDT Plan of Treatment Upcoming Encounters Date Type Department Care Team (Late st Contact Info) Description 11/23/2024 2:00 PM EDT Clinical Support [facility] [address] [place] [address] Health Maintenance Due Date Last Done Comments Family Planning (PISQ) 1998 Influenza Vaccine (#1) 2024 3, 04/10/2022, 08/10/2017, Additional history exists SDOH Screening 10/14/2024 10/15/2023 Depression Screening 02/15/2025 02/16/2024, 02/16/20 24 Pap Smear 05/19/2025 05/19/2022 Mammogram 07/31/2025 07/31/2023 Alcohol/Substance Use Screening 11/02/2025 11/02/2024 Tobacco Screening 11/02/2025 11/02/2024 Cervical Cancer Screening 05/19/2027 HPV/Cotest 05/19/2027 05/19/2022 Lipid Panel 06/23/2028 06/23/2023, 04/10/2022 Zoster Vaccines (1 of 2) 2033 DTaP/Tdap/Td Vaccines (3 - Td or Tdap) 06/23/2033 06/23/2023, 10/11/2009 RSV Patients and Patients Aged 60 years or older (1 - 1-dose 75+ series) 2058 HIV Screening Completed 04/10/2022 Hepatitis C Screening Completed 04/10/2022 COVID-19 Vaccine Completed 11/02/2024, , 11/28/2020, Additional history exists Pneumococcal Vaccine: Pediatrics (0 to 5 Years) and At-Risk Patients (6 to 49) Years) Completed 11/02/2024, 02/06/2015 HIB Vaccines Aged Out No longer eligi ble based on patient's age to complete this topic HPV Vaccines Aged Out No longer eligi ble based on patient's age to complete this topic Hepatitis A Vaccines Aged Out No long er eligible based on patient's age to complete this topic Hepatitis B Vaccines Discontinued IPV Vaccines Aged Out No longer eligi [...] Procedure Name Priority Date/Time Associated Diagnosis Comments US PELVIS TRANSVAGINAL Routine 1:56 PM EDT HCG, TOTAL, QN Routine 09/29/2024 [...] Recently Relevant to Health Maintenance Results * US Pelvis Transvaginal (10/28/2024 1:56 PM EDT) Anatomical Region Laterality Modality Pelvis Ultrasound 10/28/2024 1:56 PM EDT Narrative 10/28/2024 1:58 PM EDT ? [facility] ?[address] ?[place] [address] ? Ultrasound Report ? Signed ? Patient: Kay Abraham ?MR#: [id number] ?? [id number] ? : 1985 ?Acct:[id number] ? Age/Sex: 39 / F ?ADM Date: // ? Loc: HO.US ? Attending Dr: Bruce Weber MD ? Ordering Physician: Bruce Weber MD ?? Date of Service: 10/26/24 ?? Procedure(s): US pelvic and transvaginal ?? Accession Number(s): [id number] ? cc: Anny Carcamo MD; Bruce Weber MD ? CLINICAL HISTORY: N93.9 - Abnormal uterine and vaginal bleeding, unspecified ? Ultrasound pelvis transabdominal and transvaginal. ? COMPARISON: US pelvis dated 11/02/23 at 14:37 EDT ? Technique: Real time sonographic imaging, including color-flow imaging, ?? was performed by the commission broker. Multiple desk representative static images ?? were saved for review. ? FINDINGS: ?? Anteverted uterus measures 7.8 x 4.0 x 4.4 cm. ?? Exophytic uterine fibroid along the fundus measuring 1.5 x 1.3 x 1.0 cm, ?? previously measured 1.2 x 0.9 x 1.2 cm. ?? Uterine fibroid along the anterior aspect of the uterine body measuring ?? 0.9 x 0.9 x 1.4 cm, not definitively identified on prior imaging. ?? Endometrium: 4 mm, normal. ? Right ovary appears normal and measures 2.2 x 1.3 x 2.0 cm. No right ?? adnexal mass identified. ?? Left ovary appears normal and measures 2.8 x 1.9 x 1.7 cm. No left adnexal ?? mass identified. Normal appearing physiologic follicles/cysts. ? No free fluid identified in the pelvic cul-de-sac. ? IMPRESSION: ?? 1. No cause for patient's symptoms identified. No evidence of ovarian ?? torsion. ?? 2. Fibroid uterus. ? This document has been electronically signed by: Norberto Hankins MD on ?? 10/28/2024 13:56:58 ? Dictated By: ?Norberto Hankins MD ? Signed By: ?<Electronically signed by Norberto Hankins MD in OV> ?10/28/24 1357 ? DD/ 1356 ? TD/TT: 10/28/246 ? Consultant In Ergonomics And Safety: ? Procedure Note Aureliano Chavez - 10/28/[address] [address] Ultrasound Report Signed Patient: Jo Abraham#: [id number] : 1985Acct:[id number] Age/Sex: 39 / FADM Date: 10/26/24 Loc: HO.US Attending Dr: Bruce Weber MD Ordering Physician: Bruce Weber MD Date of Service: 10/26/24 Procedure(s): US pelvic and transvaginal Accession Number(s): [id number] cc: Anny Carcamo MD; Bruce Weber MD CLINICAL HISTORY: N93.9 - Abnormal uterine and vaginal bleeding,unspecified Ultrasound pelvis transabdominal and transvaginal. COMPARISON: US pelvis dated 11/02/23 at 14:37 EDT Technique: Real time sonographic imaging, including color-flow imaging, was performed by the commission broker. Multiple desk representative static images were saved for review. FINDINGS: Anteverted uterus measures 7.8 x 4.0 x 4.4 cm. Exophytic uterine fibroid along the fundus measuring 1.5 x 1.3 x 1.0 cm, previously measured 1.2 x 0.9 x 1.2 cm. Uterine fibroid along the anterior aspect of the uterine body measuring 0.9 x 0.9 x 1.4 cm, not definitively identified on prior imaging. Endometrium: 4 mm, normal. Right ovary appears normal and measures 2.2 x 1.3 x 2.0 cm. No right adnexal mass identified. Left ovary appears normal and measures 2.8 x 1.9 x 1.7 cm. No left adnexal mass identified. Normal appearing physiologic follicles/cysts. No free fluid identified in the pelvic cul-de-sac. IMPRESSION: 1. No cause for patient's symptoms identified. No evidence of ovarian torsion. 2. Fibroid uterus. This document has been electronically signed by: Norberto Hankins MD on 10/28/2024 13:56:58 Dictated By: Norberto Hankins MD Signed By: <Electronically signed by Norberto Hankins MD in OV> 10/28/24 1357 DD/ 1356 TD/TT: 10/28/24 1356 Consultant In Ergonomics And Safety: us [facility] External Provider IMG US PROCEDURES Edited Result - Final * TSH with Reflex to Free T4 (09/29/2024 1:54 PM EDT) TSH reflex Free T4 0.81 0.32 - 4.0 uIU/mL [facility] 09/29/2024 1:54 PM EDT 09/29/2024 1:54 PM EDT us Generic External Data Provider LAB BLOOD ORDERAB LES Final Result [facility] [address] [place], [place] [phone] * CBC (09/29/2024 1:54 PM EDT) White Blood Count 9.0 4.8 - 10.8 X10*3/uL [facility] Red Blood Count 4.54 4.20 - 5.50 X10*6/uL [facility] Hemoglobin 12.4 12.0 - 16.0 g/dl [facility] Hematocrit 37.7 37.0 - 47.0 % [facility] Mean Corpuscular Volume 83.0 80.0 - 98.0 fL [facility] Mean Corpuscular Hemoglobin 27.3 27.0 - 33.0 pg [facility] Mean Corpuscular HGB Conc 32.9 31.0 - 35.0 g/dl [facility] Red Cell Distribution Width 14.3 11.0 - 16.0 % [facility] Platelet Count 324 160 - 400 X10*3/uL [facility] Mean Platelet Volume 9.5 9.4 - 12.3 fL [facility] NRBC Pct Auto 0.0 0.0 - 0.2 /100WBC [facility] NRBC Abs Auto 0.000 0.0 - 0.012 X10*3/uL [facility] 09/29/2024 1:54 PM EDT 09/29/2024 1:54 PM EDT us Generic External Data Provider LAB BLOOD ORDERAB LES Final Result [facility] [address] [place] [address] [phone] * hCG, Total, Quantitative (09/29/2024 1:54 PM EDT) HCG Quantitative <2 mIU/mL [facility] Comment:Weeks post LMP Appro ximate hCG(Last Menstrual Period) Range (mIU/ml)3 - 4 weeks 9 - 1304 - 5 weeks 75 - 2,6005 - 6 weeks 850 - 20,8006 - 7 weeks 4000 - 100,2007 - 12 weeks 11,500 - 289,11248 - 16 weeks 18,300 - 137,34737 - 29 weeks (2nd trimester) 1,400 - 53,69138 - 41 weeks (3rd trimester) 940 - [...] ORDERAB LES Final Result Performing Organization Address City/State/[facility] Co de Phone Number [facility] [address] [place] [address] [phone] * BI Mammogram Screening Tomosynthesis Bilateral (07/31/2023 12:50 PM EST) Anatomical Region Laterality Modality Breast Bilateral Mammography 07/31/2023 12:5 0 PM EST Narrative 08/17/2023 6:29 AM EST ? [facility] ? [address] ?[place] [address] ? Mammography Report ? Signed ? Patient: Jarad,Kay ?MR#: [id number] ?? [id number] ? : 1985 ?Acct:[id number] ? Age/Sex: 38 / F ?ADM Date: 01/26/24 ? Loc: HO.MAMMO ? Attending Dr: Anny Carcamo MD ? Ordering Physician: Anny Carcamo MD ?Results: 1Negative ? Date of Service: 07/31/23 ?Follow Up: 1 Year From Orig ?? inal Mammogram ? Procedure(s): MM tomosynthesis screening BI ?? Accession Number(s): [id number] ? cc: Anny Carcamo MD ? EXAMINATION: [...] MD in OV> ? 08/17/23624 ? DD/ ? TD/TT: ? Consultant In Ergonomics And Safety: ? Procedure Note Donotuseinterpreter, Image - 08/17/2023 [facility] [address] [place] [address] Mammography Report Signed Patient: Kay AbrahamMR#: [id number] : 1985Acct:[id number] Age/Sex: 38 / FADM Date: 07/31/23 Loc: HO.MAMMO Attending Dr: Anny Carcamo MD Ordering Physician: Anny Carcamo [facility] 1Negative Date of Service: 07/31/23Follow Up: 1 Year From Orig inal Mammogram Procedure(s): MM tomosynthesis screening BI Accession Number(s): [id number] cc: Anny Carcamo MD EXAMINATION: MM SCREENING [...] in OV> 08/17/23 0625 DD/ 1250 TD/TT: Consultant In Ergonomics And Safety: Anny Carcamo MD IM BI PROCEDURES Final Result * (ABNORMAL) Lipid Panel with Reflex to Direct LDL (06/23/2023 3:56 PM EST) Triglycerides 142 <150 mg/dL [facility] Comment:Desirable Triglyceri de: less than 150 mg/dLBorderline High Triglyceride 150-199 mg/dLHigh Triglyceride: 200-499 mg/dLVery High Triglyceride: greater than or equal to 5OO mg/dL Cholesterol 189 <200 mg/dL [facility] Comment:Desirable Cholestero l: less than 200 mg/dLBorderline High Cholesterol: 200-239 mg/dLHigh Cholesterol: greater than 239 mg/dL LDL Cholesterol Calculated 111(H) <100 mg/dL [facility] Comment:Desirable LDL: less than 100 mg/dLNear Optimal/Above Optimal LDL: 110- 129 mg/dLBorderline High LDL: 130-159 mg/dLHigh LDL: 160-189 mg/dLVery High LDL: greater than or equal to 190 mg/dL HDL Cholesterol 50 >40 mg/dL [facility] Comment:Desirable HDL: great er than 40 mg/dL Note: This HDL assay may give artificially low results in patients with liver disease. Blood 06/23/2023 3:56 PM EST 06/23/2023 5:41 PM EST us Anny Carcamo MD LAB BLOOD ORDERABLES Final Resul t [facility] [address] [place], [place] [phone] * THINPREP TIS PAP AND HPV [...] with computer assisted technology. CONVERTED LEGACY LABS [employer] : SEE COMMENT CONVERTED LEGACY LABS Comment: MSM, CT(ASCP) CT screening location: [address] ??[address] HPV nRNA E6/E7 Not Detected Not Detected [facility]VERT[facility]GAC[facility] LABS Comment: Methodology: Foot Tender-Mediated Amplification This assay detects E6/E7 viral messenger RNA (mRNA) from 14 high-risk HPV types (16,18,31,33,35,39,45,51,52,56,58,59,66,68). ? Cervical sources are required for HPV testing. If a vaginal source from a patient who has had a total hysterectomy with removal of cervix was ?? submitted, please contact the testing laboratory for alternative testing options. ?? For additional information, please refer to http://education.Qwaq/faq/WFH651i5 (This link if provided for information/ educational [...] present. 05/19/2022 10:4 2 AM EST Mary THURMAN LAB PATHOLOGY ORDERABLES Final Result CONVERTED LEGACY LABS * HEPATITIS C AB [...] a test for HCV RNA (test code 16177) is suggested. ?? For additional information please refer to http://ONStor.Qwaq/faq/YPA39z1 (This link is being provided for informational/ [...] ? For additional information please refer to http://ONStor.Graematter.Hydrelis/faq/IFX063 (This link is being provided for informational/ educational purposes only.) ? The performance of this assay has not been clinically validated in patients less than 2 years old. ?? 04/10/2022 11:4 9 AM EDT Anny Carcamo MD LAB BLOOD ORDERABLES Final Resul t CONVERTED LEGACY LABS from Last 3 Months or Most Recently Relevant to Health Maintenance Insurance [employer] < 65 [place] [id number] Care Teams Telemarketing Manager Relationship Specialty Start Date End Date Anny Carcamo MD [address] [place] [phone] PCP - General Family Medicine 01/20/14
--- OUTSIDE RECORDS SUMMARY | 2024-11-02 12:33 | XMS_ITS | Encounter Summary ---
Author Organization [facility] Address [address] [place] [address] Care Team Providers Care Embroidery Machine Operator Name Role Phone Anny Carcamo MD Primary Care Provider [phone] Encounter Details Date Type Department Care Team (Latest Contact Info) Description 12/21/2018 Abstract [facility] CONVERSIONS Dental, Provider, DDS Social History Tobacco [...] Description 11/23/2024 2:00 PM EDT Clinical Support [facility] [address] [place] [address] documented as of this encounter Visit Diagnoses Not on filedocumented in this encounter Care Teams Embroidery Machine Operator Relationship Specialty Start Date End Date Anny Carcamo MD [address] [place] [address] PCP - General Family Medicine 01/20/14 documented as of this encounter
--- OUTSIDE RECORDS SUMMARY | 2024-11-02 12:33 | XMS_ITS | Encounter Summary ---
Author Organization [employer] Address [address] [facility] [address] [place] [address] Care Team Providers Care Laborer Car Barn Name Role Phone Anny Carcamo MD Primary Care Provider [phone] Encounter Details Date Type Department Care Team (Latest Contact Info) Description 11/02/2024 Travel Social History Tobacco Use Types Packs/Day Years [...] Description 11/23/2024 2:00 PM EDT Clinical Support [facility] [address] [place] [address] documented as of this encounter Visit Diagnoses Not on filedocumented in this encounter Additional Health Concerns Assessment Noted Time PHQ-9 Depression Total Score: 7 02/16/20 24 3:24 PM EDT documented as of this encounter Care Teams Laborer Car Barn Relationship Specialty Start Date End Date Anny Carcamo MD [address] [place] [address] PCP - General Family Medicine 01/20/14 documented as of this encounter
--- OUTSIDE RECORDS SUMMARY | 2024-11-02 12:33 | XMS_ITS | Encounter Summary ---
Author Organization [employer] Address [address] [facility] 7t [place] [address] Care Team Providers Care Christmas Tree Farm Worker Name Role Phone Anny Carcamo MD Primary Care Provider Reason for Referral * Consultation (Routine) - Closed Specialty Diagnoses / Procedures Referred By Contveronica t Referred To Contact Obstetrics and Gynecology Diagnoses Abnormal uterine bleeding (AUB) Fibroid Anny Carcamo MD [address] [place] [address] Phone: tel: fax: [facility] [address] 5[address] (Main Hospital Entrance) [place], [place] Phone: tel: fax: Referral ID Status Reason Start Date Expiration Date V isits Requested Visits Authorized [id number] Closed Specialty Services Required 12/18/2023 12/17/2024 1 1 Encounter Details Date Type Department Care Team (Late st Contact Info) Description 12/18/2023 Orders Only [facility] [address] [place], [place] [phone] Anny Carcamo MD [address] [place], [place] [phone] Abnormal uterine bleeding (AUB) (Primary Dx); Fibroid; [...] fundus. 2. Normal ovaries. - refer to [facility] - PAP at next visit * Assessment & Plan Note - Anny Carcamo MD - 12/18/2023 10:34 AM EDTAssociated Problem(s): Fibroid - 11/02/23 Pelvic US showed 1.2 cm exophytic fibroid extends off the uterine fundus. - referred to [facility] documented in this encounter Plan of Treatment Upcoming Encounters Date Type Department Care Team (Late st Contact Info) Description 11/23/2024 2:00 PM EDT Clinical Support [address] [address] Scheduled Referrals Name Type Priority Associated Diagnoses [...] Vitamin B12 303 200 - 900 pg/mL [facility] Comment:NORMAL 200-900 PG/ML INDETERMINATE 160-199 PG/ML DEFICIENT < 160 PG/ML Folate 9.0 > or = 4.0 ng/mL [facility] Comment:Reference Values:> o r = 4.0 ng/mL< 4.0 ng/mL suggests folate deficiency Methotrexate, aminopterin and folinic acid(leucovorin) are chemotherapeutic agents whose molecularstructures are similar to folate; therefore, the Architectfolate assay cannot be used for patients using these drugs. 02/16/2024 4:00 PM EDT 02/16/2024 5:46 PM EDT Anny Carcamo MD LAB BLOOD ORDERABLES Final Resul t Performing Organization Address [facility] Co de Phone Number [facility] [address] [place] [phone] * Iron And Total Iron Binding Capacity (02/16/2024 4:00 PM EDT) Iron 84 30 - 160 mcg/dL [facility] Total Iron Binding Capacity 318 228 - 428 mcg/dL [facility] Percent Iron Saturation 26 15 - 50 % [facility] Unsaturated Iron Binding 234 ug/dL [facility] Blood Venous blood specimen / Unknown 02/16/2024 4:00 PM EDT 02/16/2024 5:46 PM EDT Anny Carcamo MD LAB BLOOD ORDERABLES Final Resul t Performing Organization Address [facility] Co de Phone Number [facility] [address] [place] [phone] * Ferritin (02/16/2024 4:00 PM EDT) Ferritin 113 10 - 250 ng/mL [facility] Blood Venous blood specimen / Unknown 02/16/2024 4:00 PM EDT 02/16/2024 5:46 PM EDT Anny Carcamo MD LAB BLOOD ORDERABLES Final Resul t Performing Organization Address [facility] Co de Phone Number [facility] [address] [place] [phone] * (ABNORMAL) CBC auto differential (02/16/2024 4:00 PM EDT) White Blood Count 8.7 4.8 - 10.8 X10*3/uL [facility] Red Blood Count 4.64 4.20 - 5.50 X10*6/uL [facility] Hemoglobin 13.0 12.0 - 16.0 g/dl [facility] Hematocrit 39.6 37.0 - 47.0 % [facility] Mean Corpuscular Volume 85.3 80.0 - 98.0 fL [facility] Mean Corpuscular Hemoglobin 28.0 27.0 - 33.0 pg [facility] Mean Corpuscular HGB Conc 32.8 31.0 - 35.0 g/dl [facility] Red Cell Distribution Width 13.1 11.0 - 16.0 % [facility] Platelet Count 308 160 - 400 X10*3/uL [facility] Mean Platelet Volume 9.7 9.4 - 12.3 fL [facility] Neutrophils Percent Auto 58.9 45 - 73 % [facility] Imm Gran Pct Auto 0.5(H) 0.0 - 0.4 % [facility] Lymphocytes Percent Auto 33.6 20 - 40 % [facility] Monocytes Percent Auto 5.7 2 - 11 % [facility] Eosinophils Percent Auto 1.0 0 - 4 % [facility] Basophils Percent Auto 0.3 0 - 2 % [facility] NRBC Pct Auto 0.0 0.0 - 0.2 /100WBC [facility] Neutrophils Absolute Auto 5.1 2.0 - 8.3 x10*3/uL [facility] Imm Gran Abs Auto 0.04(H) 0.00 - 0.03 X10*3/uL [facility] Lymphocytes Absolute Auto 2.9 1.2 - 4.9 X10*3/uL [facility] Monocytes Absolute Auto 0.5 0.1 - 1.2 X10*3/uL [facility] Eosinophils Absolute Auto 0.1 0.0 - 0.4 X10*3/uL [facility] Basophils Absolute Auto 0.0 0.0 - 0.2 X10*3/uL [facility] NRBC Abs Auto 0.000 0.0 - 0.012 X10*3/uL [facility] Blood Venous blood specimen / Unknown 02/16/2024 4:00 PM EDT 02/16/2024 5:46 PM EDT Anny Carcamo MD LAB BLOOD ORDERABLES Final Resul t [facility] [address] [place] [phone] documented in this encounter Visit Diagnoses Diagnosis Abnormal uterine bleeding (AUB)- Primary Fibroid Leiomyoma of uterus, unspecified Anemia, unspecified type documented in this encounter Additional Health Concerns Assessment Noted Time PHQ-9 Depression Total Score: 0 06/23/20 23 2:52 PM EST documented as of this encounter Care Teams Christmas Tree Farm Worker Relationship Specialty Start Date End Date Anny Carcamo MD [address] [place] [phone] PCP - General Family Medicine 01/20/14 documented as of this encounter
--- OUTSIDE RECORDS SUMMARY | 2024-11-02 12:33 | XMS_ITS | Encounter Summary ---
Author Organization [employer] Address [address] [facility] 7t [place] [address] Care Team Providers Care Administrative Resources Associate Name Role Phone Anny Carcamo MD Primary Care Provider [phone] Reason for Visit * Reason Comments Med Refill Encounter Details Date Type Department Care Team ([facility] st Contact Info) Description 07/20/2024 Refill [facility] [address] [place], [place] [phone] Anny Carcamo MD [address] [place], [place] [phone] Social History Tobacco Use Types Packs/Day Years [...] Description 11/23/2024 2:00 PM EDT Clinical Support [facility] [address] [place] [address] documented as of this encounter Visit Diagnoses Not on filedocumented in this encounter Additional Health Concerns Assessment Noted Time PHQ-9 Depression Total Score: 7 02/16/20 24 3:24 PM EDT documented as of this encounter Care Teams Administrative Resources Associate Relationship Specialty Start Date End Date Anny Carcamo MD [address] [place] [address] PCP - General Family Medicine 01/20/14 documented as of this encounter
--- OUTSIDE RECORDS SUMMARY | 2024-11-02 12:33 | XMS_ITS | Encounter Summary ---
Author Organization [employer] Address [address] [facility] 7t [place] [address] Care Team Providers Care Van Driver Helper Name Role Phone Anny Carcamo MD Primary Care Provider [phone] Reason for Visit * Reason Onset Date Comments Returning Call 10/15/2023 Encounter Details Date Type Department Care Team ([facility] st Contact Info) Description 10/15/2023 Telephone [facility] [address] [place] [address] Anny Carcamo MD [address] [place] [address] Returning Call Social History Tobacco Use Types [...] Direct contactinformation provided. Please contact pt at [phone] documented in this encounter Plan of Treatment Upcoming Encounters Date Type Department Care Team (Late st Contact Info) Description 11/23/2024 2:00 PM EDT Clinical Support [facility] [address] [place] [address] documented as of this encounter Visit Diagnoses Not on filedocumented in this encounter Additional Health Concerns Assessment Noted Time PHQ-9 Depression Total Score: 0 06/23/20 23 2:52 PM EST documented as of this encounter Care Teams Van Driver Helper Relationship Specialty Start Date End Date Anny Carcamo MD [address] [place] [address] PCP - General Family Medicine 01/20/14 documented as of this encounter
--- OUTSIDE RECORDS SUMMARY | 2024-11-02 12:33 | XMS_ITS | Encounter Summary ---
Author Organization [employer] Address [address] [facility] 7t [place] [address] Care Team Providers Care Utilities Operator Name Role Phone Anny Carcamo MD Primary Care Provider [phone] Reason for Visit * Reason Onset Date Comments CHART PREP 11/01/2024 Encounter Details Date Type Department Care Team ([facility] st Contact Info) Description 11/01/[address] [facility] [address] [place] [address] Andre Kirkpatrick MA CHART PREP Social History Tobacco Use Types Packs/Day Years [...] t he electric, gas, oil or water [employer] threatened to shut off services in your [...] encounter Miscellaneous Notes * Telephone Encounter - Andre Kirkpatrick MA - 11/01/2024 9:34 AM EDT ..Chart Prep Labs: done Images: done Vaccines due: Covid Due, Hep B Due, PCV20 Due, and Flu Due Referrals: Women's health Completed, General Surgery Completed Screenings: Not Applicable Overdue care gaps: Sbirt, SDOH, Disability , and Oral Health documented in this encounter Plan of Treatment Upcoming Encounters Date Type Department Care Team (Late st Contact Info) Description 11/23/2024 2:00 PM EDT Clinical Support [facility] [address] [place] [address] documented as of this encounter Visit Diagnoses Not on filedocumented in this encounter Additional Health Concerns Assessment Noted Time PHQ-9 Depression Total Score: 7 02/16/20 24 3:24 PM EDT documented as of this encounter Care Teams Utilities Operator Relationship Specialty Start Date End Date Anny Carcamo MD [address] [place] [address] PCP - General Family Medicine 01/20/14 documented as of this encounter
[2024-11-02 13:56] LABS: Estimated Average Glucose 108 mg/dL; Hemoglobin A1C 116.4237 umol/L; Hemoglobin A1c % 5.4 % (<6.0)
[2024-11-02 14:17] LABS: Alanine Aminotransferase 36 U/L (0-31); Albumin Level 4.4 g/dL (3.5-5.0); Alkaline Phosphatase 85 U/L (39-117); Anion Gap 11 (12-20); Aspartate Amino Transferase 26 U/L (5-31); Bilirubin Total 0.4 mg/dL (0.0-1.0); Blood Urea Nitrogen 14 mg/dL (9-16); Calcium 9.7 mg/dL (8.4-10.2); Carbon Dioxide 30 mmol/L (22-29); Chloride 104 mmol/L (96-108); Cholesterol 191 mg/dL (<200); Estimated Glomerular Filt Rate > 60; Glucose Random 92 mg/dL (60-115); HDL Cholesterol 59 mg/dL (>40); LDL Cholesterol Calculated 93 mg/dL (<100); Potassium 4.2 mmol/L (3.3-5.1); Sodium 141 mmol/L (135-145); Total Protein 7.2 g/dL (6.5-8.0); Triglycerides 196 mg/dL (<150)
[2024-11-02 14:22] LABS: Reflex LDLD? No
[2024-11-02 14:27] LABS: TSH reflex Free T4 1.88 uIU/mL (0.32-4.0)
== END 2024-11-02 10:58 | disposition home or self-care (01) ==
LOC: HO.HHCL 10:57
PROVIDERS: Visit Provider Family Medicine
DX: Z13.1 Encounter for screening for diabetes mellitus (principal); R03.0 Elevated blood-pressure reading, without diagnosis of hypertension; Z13.220 Encounter for screening for lipoid disorders
CPT/HCPCS: 36415; 80053; 80061; 83036; 84443

== ENCOUNTER 2024-11-03 15:01 | Outpatient (AMB) | payer OTHER, SELFPAY ==
[2024-11-03 15:11] VITALS: BMI 35.1
--- NOTE | 2024-11-03 15:11 | A.OFFVIS_ITS ---
Vital Signs 11/03/24 15:11 Height 5 ft 3 in Weight 198 lb BMI 35.1 Intake Visit Reasons: EMB Coal Hauler Operator Required: Yes Coal Hauler Operator Language: Tree Chipper Services: Coal Hauler Operator Present (in person) Coal Hauler Operator Name: Tawana TOMLIN Information Interpreted: non-clinical & clinical Qa Tech: Qa Tech Present (Tawana TOMLIN) Accompanied by: Self / Same As Patient Allergies No Known Allergies Allergy (Verified 11/03/24 15:13) HPI Comments Details: The patient is presenting for follow-up to discuss the results of her abnormal uterine bleeding workup and options of treatment. The following workup was done.: H&H= 12.4/37.7 TSH, hCG, GC and chlamydia were negative. Co testing was done was negative. Mammogram is scheduled in 11/22 Pelvic ultrasound showed the following: Anteverted uterus measures 7.8 x 4.0 x 4.4 cm. Exophytic uterine fibroid along the fundus measuring 1.5 x 1.3 x 1.0 cm, previously measured 1.2 x 0.9 x 1.2 cm. Uterine fibroid along the anterior aspect of the uterine body measuring 0.9 x 0.9 x 1.4 cm, not definitively identified on prior imaging. Endometrium: 4 mm, normal. Right ovary appears normal and measures 2.2 x 1.3 x 2.0 cm. No right adnexal mass identified. Left ovary appears normal and measures 2.8 x 1.9 x 1.7 cm. No left adnexal mass identified. Normal appearing physiologic follicles/cysts. No free fluid identified in the pelvic cul-de-sac EMB not done yet [facility] Medical History Asthma Hemorrhoids that prolapse with straining and require manual replacement back inside anal canal Surgical History History of surgery on arm Social History Alcohol intake: never Patient Tobacco Use Status: Never used Tobacco Review of Systems Const All systems reviewed & are unremarkable except as noted in HPI and below Reports as per HPI and Reports no additional complaints GI Reports no additional complaints Reports no additional complaints Physical Exam Vital Signs: BMI result Body Mass Index 35.1 Assessment & Plan Assessment & Plan (1) Abnormal uterine bleeding: Code(s): N93.9 - Abnormal uterine and vaginal bleeding, unspecified Category: Medical Plan: Discussed with the patient the workup done, recommended EMB today but the patient would like to defer for next visit. Instructions given to the patient schedule EMB in 1-2 weeks to rule out endometrial pathology including endometrial hyperplasia and/or malignancy. All questions answered, the patient verbalized understanding (2) Uterine myoma: Code(s): D25.9 - Leiomyoma of uterus, unspecified Category: Medical Plan: Discussed with the patient the findings on pelvic ultrasound & the risk of myosarcoma; in addition reviewed with the patient that malignancy and pre malignancy cannot be ruled out without hysterectomy for pathological evaluation ; furthermore, explained to the patient the limitation of pelvic ultrasound and endometrial biopsy in the setting. Discussed with the patient the typical symptoms that are caused by myomas including but not limited to pelvic pain, pressure symptoms, abnormal uterine bleeding. In addition discussed with the patient options of treatment for myomas including: Serial ultrasounds periodically to follow-up on the size of the myoma while targeting the treatment against fibroids related symptoms ( control pills, Mirena IUD, progesterone treatment, GnRH agonist/antagonist, uterine artery embolization or endometrial ablation) versus surgical treatment including hysterectomy and or myomectomy. All pros and cons, risks and benefits of all options were discussed with the patient. The patient understands that delay in surgical treatment in case of myosarcoma can affect her prognosis, after further discussion, the patient decided to think about it and get back to us next visit Coding Level of Care Code Est Pt Level 3 (25380) Diagnoses Abnormal uterine bleeding N93.9 Uterine myoma D25.9
--- OUTSIDE RECORDS SUMMARY | 2024-11-03 16:57 | XMS_ITS | Encounter Summary ---
Author Organization [employer] Address [address] [facility] 7t [place] [address] Care Team Providers Care Road Commissioner Name Role Phone Anny Carcamo MD Primary Care Provider [phone] Encounter Details Date Type Department Care Team ([facility] st Contact Info) Description 11/02/2024 9:45 AM EDT Office Visit [facility] [address] [place], [place] [phone] Anny Carcamo MD [address] [place], [place] [phone] Mild intermittent asthma without complication (Primary Dx); [...] housing situation today? I have monico sosa 11/03/[address] you li ve. Do you have problems with any of the following? None of the above 11/03/2024 Food Insecurity Answer Date Recorded Within the past 12 months, y ou worried that your food would run out before you got money to buy more: Never True 11/03/2024 Within the past 12 months,th e food you bought just didn't last and you didn't have enough money to get more: Never True 07/2024 Transportation Answer Date Recorded In the past 12 months, has l ack of transportation kept you from medical appts, meetings, work or from getting things needed for daily living? No 11/03/2024 Utilities Answer Date Recorded In the past 12 months, has t he [employer], gas, oil or water [employer] threatened to shut off services in your home? No 11/03/2024 Depression Answer Date Recorded Patient Health Questionnaire-2 Score 2 02/16/2024 Internet Access Answer Date Recorded Internet Access Q1 Yes 11/03/2024 Internet Access Q2 Not on file 11/03/2024 Comments Unknown Sex and Gender Information Value [...] Endometrium thickness 4 mm. - Evaluated by Cloth Stock Sorter in September 2024 * Assessment & Plan [...] fundus. 2. Normal ovaries. - evaluated by GRAIN OPERATIONS MANAGER - Normal pap in September 2024 * [...] arises * Assessment & Plan Note - Marogth Nolasco MA - 11/02/2024 9:05 AM EDTAssociated Problem(s): Asthma - continue albuterol HFA prn (patient request ProAir because other inhalers are not effective as ProAir). documented in this encounter Plan of Treatment Upcoming Encounters Date Type Department Care Team (Late st Contact Info) Description 11/23/2024 2:00 PM EDT Clinical Support [facility] [address] [place] [phone] Scheduled Orders Name Type Priority Associated Diagnoses Orde r Schedule Albumin, Random Urine W/Creatinine Lab Routine Elevated BP without diagnosis of hypertension Expected: 11/02/2024 (Approximate), Expires: 11/02/2025 documented as of this encounter Procedures Procedure Name Priority Date/Time Associated Diagnosis Comments TSH W/REFLEX TO FT4 Routine 11/02/2024 1 1:02 AM EDT Elevated BP without diagnosis of hypertension LIPID PANEL WITH REFLEX TO DIRECT LDL Routine 11/02/2024 11:02 AM EDT Screening for lipid disorders HEMOGLOBIN A1C Routine 11/02/2024 11:02 AM EDT Screening for diabetes mellitus COMPREHENSIVE METABOLIC PANEL Routine 11/02/2024 11:02 AM EDT Elevated BP without diagnosis of hypertension documented in this encounter Results * (ABNORMAL) Lipid Panel with Reflex to Direct LDL (11/02/2024 11:02 AM EDT) Triglycerides 196(H) <150 mg/dL [facility] Comment:Desirable Triglyceri de: less than 150 mg/dLBorderline High Triglyceride 150-199 mg/dLHigh Triglyceride: 200-499 mg/dLVery High Triglyceride: greater than or equal to 5OO mg/dL Cholesterol 191 <200 mg/dL [facility] Comment:Desirable Cholestero l: less than 200 mg/dLBorderline High Cholesterol: 200-239 mg/dLHigh Cholesterol: greater than 239 mg/dL LDL Cholesterol Calculated 93 <100 mg/dL [facility] Comment:Desirable LDL: less than 100 mg/dLNear Optimal/Above Optimal LDL: 110- 129 mg/dLBorderline High LDL: 130-159 mg/dLHigh LDL: 160-189 mg/dLVery High LDL: greater than or equal to 190 mg/dL HDL Cholesterol 59 >40 mg/dL [facility] Comment:Desirable HDL: great er than 40 mg/dL Note: This HDL assay may give artificially low results in patients with liver disease. Blood 11/02/2024 11:0 2 AM EDT 11/02/2024 1:27 PM EDT us Anny Carcamo MD LAB BLOOD ORDERABLES Final Resul t [facility] [address] [place] [phone] * (ABNORMAL) Comprehensive Metabolic Panel (11/02/2024 11:02 AM EDT) Sodium 141 135 - 145 mmol/L [facility] Potassium 4.2 3.3 - 5.1 mmol/L [facility] Chloride 104 96 - 108 mmol/L [facility] Carbon Dioxide 30(H) 22 - 29 mmol/L [facility] Anion Gap 11(L) 12 - 20 [facility] Urea Nitrogen (BUN) 14 9 - 16 mg/dL [facility] Creatinine, Serum 0.77 0.5 - 1.4 mg/dL [facility] Estimated Glomerular Filt Rate >60 [facility] Comment:Chronic Kidney Disea se: Estimated GFR < 60 mL/min/1.06q9Dcqdtw Kidney Disease: Estimated GFR < 15 mL/min/1.73m2 Glucose 92 60 - 115 mg/dL [facility] Calcium 9.7 8.4 - 10.2 mg/dL [facility] Bilirubin, Total 0.4 0.0 - 1.0 mg/dL [facility] Aspartate Amino Transferase 26 5 - 31 U/L [facility] Alanine Aminotransferase 36(H) 0 - 31 U/L [facility] Total Protein 7.2 6.5 - 8.0 g/dL [facility] Albumin Level 4.4 3.5 - 5.0 g/dL [facility] Alkaline Phosphatase 85 39 - 117 U/L [facility] Blood Venous blood specimen / Unknown 11/02/2024 11:02 AM EDT 11/02/2024 1:27 PM EDT us Anny Carcamo MD LAB BLOOD ORDERABLES Final Resul t [facility] [address] [place] [phone] * Hemoglobin A1c (11/02/2024 11:02 AM EDT) Hemoglobin A1c 5.4 <6.0 % [facility] Comment:Hemoglobin A1C Refer ence Range Adults: 4.8 - 6.0 % Non diabetic: < 6.0 % Goal: < 7.0 %Additional Action Suggested: > 8.0 %Note: Hemoglobin A1c results are invalid for patients with abnormal amounts of HbF. Blood transfusions may impact the HbA1c concentration in the patient sample. Estimated Average Glucose 108 mg/dL [facility] Comment:eAG = Estimated ave rage glucose which is %A1C expressed asaverage glucose, using the formula of the [id number] Glucose study (ADAG), Diabetes Care, Vol.31,#8,2007 Blood Venous blood specimen / Unknown 11/02/2024 11:02 AM EDT 11/02/2024 1:27 PM EDT us Anny Carcamo MD LAB BLOOD ORDERABLES Final Resul t Performing Organization Address [facility]/ZIP Co de Phone Number [facility] [address] [place] [phone] * TSH with Reflex to Free T4 (11/02/2024 11:02 AM EDT) TSH reflex Free T4 1.88 0.32 - 4.0 uIU/mL [facility] Blood 11/02/2024 11:0 2 AM EDT 11/02/2024 1:27 PM EDT us Anny Carcamo MD LAB BLOOD ORDERABLES Final Resul t Performing Organization Address [facility] Co de Phone Number [facility] [address] [place] [phone] documented in this encounter Visit Diagnoses Diagnosis Mild intermittent [...] documented as of this encounter Care Teams Road Commissioner Relationship Specialty Start Date End Date Anny Carcamo MD [address] [place] [phone] PCP - General Family Medicine 01/20/14 documented as of this encounter
--- OUTSIDE RECORDS SUMMARY | 2024-11-03 16:57 | XMS_ITS | Encounter Summary ---
Author Organization [email or web address] Address 75 [facility] 7t [place] [address] Care Team Providers Care Certified Nurse Aide Name Role Phone Anny Carcamo MD Primary Care Provider Encounter Details Date Type Department Care Team [...] 11/23/2024 2:00 PM EDT Clinical Support [facility] [address] [place] [address] documented as of this encounter Visit Diagnoses Not on filedocumented in this encounter Additional Health Concerns Assessment Noted Time PHQ-9 Depression Total Score: 7 02/16/20 24 3:24 PM EDT documented as of this encounter Care Teams Certified Nurse Aide Relationship Specialty Start Date End Date Anny Carcamo MD [address] [place] [address] PCP - General Family Medicine 01/20/14 documented as of this encounter
--- OUTSIDE RECORDS SUMMARY | 2024-11-03 16:57 | XMS_ITS | Encounter Summary ---
Author Organization [employer] Address [address] [facility] [address]t [place] [address] Care Team Providers Care Dressmaker Or Tailor Name Role Phone Anny Carcamo MD Primary Care Provider [phone] Reason for Referral * Consultation (Routine) - Closed Specialty Diagnoses / Procedures Referred By Contveronica t Referred To Contact Obstetrics and Gynecology Diagnoses Abnormal uterine bleeding (AUB) Fibroid nAny Carcamo MD [address] [place] [address] Phone: tel: fax: [facility] [address] 5[address] (Main Hospital Entrance) [place], [place] Phone: tel: fax: Referral ID Status Reason Start Date Expiration Date V isits Requested Visits Authorized [id number] Closed Specialty Services Required 12/18/2023 12/17/2024 1 1 Encounter Details Date Type Department Care Team (Late st Contact Info) Description 12/18/2023 Orders Only [facility] [address] [place], [place] [phone] Anny Carcamo MD [address] [place], [place] [phone] Abnormal uterine bleeding (AUB) (Primary Dx); Fibroid; [...] fundus. 2. Normal ovaries. - refer to FERRIS WHEEL OPERATOR - PAP at next visit * Assessment & Plan Note - Anny Carcamo MD - 12/18/2023 10:34 AM EDTAssociated Problem(s): Fibroid - 11/02/23 Pelvic US showed 1.2 cm exophytic fibroid extends off the uterine fundus. - referred to FERRIS WHEEL OPERATOR documented in this encounter Plan of Treatment Upcoming Encounters Date Type Department Care Team (Late st Contact Info) Description 11/23/2024 2:00 PM EDT Clinical Support [address] [address] Scheduled Referrals Name Type Priority Associated Diagnoses [...] Vitamin B12 303 200 - 900 pg/mL [facility] Comment:NORMAL 200-900 PG/ML INDETERMINATE 160-199 PG/ML DEFICIENT < 160 PG/ML Folate 9.0 > or = 4.0 ng/mL [facility] Comment:Reference Values:> o r = 4.0 ng/mL< 4.0 ng/mL suggests folate deficiency Methotrexate, aminopterin and folinic acid(leucovorin) are chemotherapeutic agents whose molecularstructures are similar to folate; therefore, the Architectfolate assay cannot be used for patients using these drugs. 02/16/2024 4:00 PM EDT 02/16/2024 5:46 PM EDT Anny Carcamo MD LAB BLOOD ORDERABLES Final Resul t Performing Organization Address [facility] Co de Phone Number [facility] [address] [place] [phone] * Iron And Total Iron Binding Capacity (02/16/2024 4:00 PM EDT) Iron 84 30 - 160 mcg/dL [facility] Total Iron Binding Capacity 318 228 - 428 mcg/dL [facility] Percent Iron Saturation 26 15 - 50 % [facility] Unsaturated Iron Binding 234 ug/dL [facility] Blood Venous blood specimen / Unknown 02/16/2024 4:00 PM EDT 02/16/2024 5:46 PM EDT Anny Carcamo MD LAB BLOOD ORDERABLES Final Resul t Performing Organization Address [facility] Co de Phone Number [facility] [address] [place] [phone] * Ferritin (02/16/2024 4:00 PM EDT) Ferritin 113 10 - 250 ng/mL [facility] Blood Venous blood specimen / Unknown 02/16/2024 4:00 PM EDT 02/16/2024 5:46 PM EDT Anny Carcamo MD LAB BLOOD ORDERABLES Final Resul t Performing Organization Address [facility] Co de Phone Number [facility] [address] [place] [phone] * (ABNORMAL) CBC auto differential (02/16/2024 4:00 PM EDT) White Blood Count 8.7 4.8 - 10.8 X10*3/uL [facility] Red Blood Count 4.64 4.20 - 5.50 X10*6/uL [facility] Hemoglobin 13.0 12.0 - 16.0 g/dl [facility] Hematocrit 39.6 37.0 - 47.0 % [facility] Mean Corpuscular Volume 85.3 80.0 - 98.0 fL [facility] Mean Corpuscular Hemoglobin 28.0 27.0 - 33.0 pg [facility] Mean Corpuscular HGB Conc 32.8 31.0 - 35.0 g/dl [facility] Red Cell Distribution Width 13.1 11.0 - 16.0 % [facility] Platelet Count 308 160 - 400 X10*3/uL [facility] Mean Platelet Volume 9.7 9.4 - 12.3 fL [facility] Neutrophils Percent Auto 58.9 45 - 73 % [facility] Imm Gran Pct Auto 0.5(H) 0.0 - 0.4 % [facility] Lymphocytes Percent Auto 33.6 20 - 40 % [facility] Monocytes Percent Auto 5.7 2 - 11 % [facility] Eosinophils Percent Auto 1.0 0 - 4 % [facility] Basophils Percent Auto 0.3 0 - 2 % [facility] NRBC Pct Auto 0.0 0.0 - 0.2 /100WBC [facility] Neutrophils Absolute Auto 5.1 2.0 - 8.3 x10*3/uL [facility] Imm Gran Abs Auto 0.04(H) 0.00 - 0.03 X10*3/uL [facility] Lymphocytes Absolute Auto 2.9 1.2 - 4.9 X10*3/uL [facility] Monocytes Absolute Auto 0.5 0.1 - 1.2 X10*3/uL [facility] Eosinophils Absolute Auto 0.1 0.0 - 0.4 X10*3/uL [facility] Basophils Absolute Auto 0.0 0.0 - 0.2 X10*3/uL [facility] NRBC Abs Auto 0.000 0.0 - 0.012 X10*3/uL [facility] Blood Venous blood specimen / Unknown 02/16/2024 4:00 PM EDT 02/16/2024 5:46 PM EDT Anny Carcamo MD LAB BLOOD ORDERABLES Final Resul t [facility] [address] [place] [phone] documented in this encounter Visit Diagnoses Diagnosis Abnormal uterine bleeding (AUB)- Primary Fibroid Leiomyoma of uterus, unspecified Anemia, unspecified type documented in this encounter Additional Health Concerns Assessment Noted Time PHQ-9 Depression Total Score: 0 06/23/20 23 2:52 PM EST documented as of this encounter Care Teams Dressmaker Or Tailor Relationship Specialty Start Date End Date Anny Carcamo MD [address] [place] [phone] PCP - General Family Medicine 01/20/14 documented as of this encounter
--- OUTSIDE RECORDS SUMMARY | 2024-11-03 16:57 | XMS_ITS | Encounter Summary ---
Author Organization [employer] Address [address] [facility] [address] [place] [address] Care Team Providers Care Head Piece Assembler Name Role Phone Anny Carcamo MD Primary Care Provider Reason for Visit * Reason Onset Date Comments CHART PREP 11/01/2024 Encounter Details Date Type Department Care Team ([facility] st Contact Info) Description 11/01/2024 Telephone [facility] [address] [place] [address] Andre Kirkpatrick [place] CHART PREP Social History [...] t he electric, gas, oil or water Letsgofordinner threatened to shut off services in your [...] Description 11/23/2024 2:00 PM EDT Clinical Support [facility] [address] [place] [address] documented as of this encounter Visit Diagnoses Not on filedocumented in this encounter Additional Health Concerns Assessment Noted Time PHQ-9 Depression Total Score: 7 02/16/20 24 3:24 PM EDT documented as of this encounter Care Teams Head Piece Assembler Relationship Specialty Start Date End Date Anny Carcamo MD [address] [place] [address] PCP - General Family Medicine 01/20/14 documented as of this encounter
--- OUTSIDE RECORDS SUMMARY | 2024-11-03 16:57 | XMS_ITS | Encounter Summary ---
Author Organization [employer] [facility] Address [address] [facility] [address] [place] [address] Care Team Providers Care Burner Tender Name Role Phone Anny Carcamo MD Primary Care Provider [phone] Encounter Details Date Type Department Care Team (Latest Contact Info) Description 12/21/2018 Abstract [facility] CONVERSIONS Dental, Provider, DDS Social History [...] Description 11/23/2024 2:00 PM EDT Clinical Support [facility] [address] [place] [address] documented as of this encounter Visit Diagnoses Not on filedocumented in this encounter Care Teams Burner Tender Relationship Specialty Start Date End Date Anny Carcamo MD [address] [place] [address] PCP - General Family Medicine 01/20/14 documented as of this encounter
--- OUTSIDE RECORDS SUMMARY | 2024-11-03 16:57 | XMS_ITS | Encounter Summary ---
Author Organization [employer] Address [address] [facility] [address] [place] [address] Care Team Providers Care Doll Dresser Name Role Phone Anny Carcamo MD Primary Care Provider Reason for Visit * Reason Comments Med Refill Encounter Details Date Type Department Care Team ([facility] st Contact Info) Description 07/20/2024 Refill [facility] [address] [place], [place] [phone] Anny Carcamo MD [address] [place], [place] [phone] Social History Tobacco Use Types Packs/Day Years [...] Description 11/23/2024 2:00 PM EDT Clinical Support [facility] [address] [place] [address] documented as of this encounter Visit Diagnoses Not on filedocumented in this encounter Additional Health Concerns Assessment Noted Time PHQ-9 Depression Total Score: 7 02/16/20 24 3:24 PM EDT documented as of this encounter Care Teams Doll Dresser Relationship Specialty Start Date End Date Anny Carcamo MD [address] [place] [address] PCP - General Family Medicine 01/20/14 documented as of this encounter
--- OUTSIDE RECORDS SUMMARY | 2024-11-03 16:57 | XMS_ITS | Encounter Summary ---
Author Organization [employer] Address [address] [facility] [address] [place] [address] Care Team Providers Care Baked Goods Stock Clerk Name Role Phone Anny Carcamo MD Primary Care Provider [phone] Reason for Visit * Reason Onset Date Comments Returning Call 10/15/2023 Encounter Details Date Type Department Care Team ([facility] st Contact Info) Description 10/15/2023 Telephone [facility] [address] [place] [address] Anny Carcamo MD [address] [place] [address] Returning Call Social History Tobacco Use Types [...] Direct contactinformation provided. Please contact pt at [phone] documented in this encounter Plan of Treatment Upcoming Encounters Date Type Department Care Team (Late st Contact Info) Description 11/23/2024 2:00 PM EDT Clinical Support [facility] [address] [place] [address] documented as of this encounter Visit Diagnoses Not on filedocumented in this encounter Additional Health Concerns Assessment Noted Time PHQ-9 Depression Total Score: 0 06/23/20 23 2:52 PM EST documented as of this encounter Care Teams Baked Goods Stock Clerk Relationship Specialty Start Date End Date Anny Carcamo MD [address] [place] [address] PCP - General Family Medicine 01/20/14 documented as of this encounter
--- OUTSIDE RECORDS SUMMARY | 2024-11-03 16:58 | XMS_ITS | Clinical Summary ---
Author Organization [employer] Address [address] [place] [address] 7[address] [place] [address] Care Team Providers Care Automated Process Operator Name Role Phone Anny Carcamo MD Primary Care Provider [phone] Allergies No known active allergies Medications albuterol [...] Endometrium thickness 4 mm. - Evaluated by It Technical Architect in September 2024 Assessment & Plan (02/16/2024 3:54 PM EDT): - 11/02/23 Pelvic US showed 1.2 cm exophytic fibroid extends off the uterine fundus. - referred to TRAVEL CLERK Assessment & Plan (12/18/2023 10:34 AM EDT): - 11/02/23 Pelvic US showed 1.2 cm exophytic fibroid extends off the uterine fundus. - referred to TRAVEL CLERK Abnormal uterine bleeding (AUB) 10/28/2023 Assessment & Plan (11/02/2024 11:29 AM EDT): - oligomenorrhea rather than menorrhagia, question of PCOS - 11/02/23 Pelvic US 1. 1.2 cm exophytic fibroid extends off the uterine fundus. 2. Normal ovaries. - evaluated by TRAVEL CLERK - Normal pap in September 2024 Assessment & Plan (02/16/2024 3:51 PM EDT): - oligomenorrhea rather than menorrhagia, question of PCOS - 11/02/23 Pelvic US 1. 1.2 cm exophytic fibroid extends off the uterine fundus. 2. Normal ovaries. - refer to TRAVEL CLERK - check anemia lab Assessment & Plan (12/18/2023 10:36 AM EDT): - oligomenorrhea rather than menorrhagia, question of PCOS - 11/02/23 Pelvic US 1. 1.2 cm exophytic fibroid extends off the uterine fundus. 2. Normal ovaries. - refer to TRAVEL CLERK - PAP at next visit Assessment & [...] Description 11/02/2024 9:45 AM EDT Office Visit [facility] MEDICINE [address] [place] [phone] Anny Carcamo MD Mild intermittent asthma without [...] for diabetes mellitus 11/02/2024 Travel 11/01/2024 Telephone [facility] MEDICINE [address] [place], [place] [phone] Andre Kirkpatrick MA CHART PREP 10/20/2024 Patient Outreach [facility] MED & PEDS [address] [place], [place] [phone] Anny Carcamo MD Pre-visit Planning (SDOH unable to reach [facility] ) 10/12/2024 Refill [facility] [address] [place], [place] [phone] Anny Carcamo MD Nonintractable headache, unspecified chronicity pattern, unspecified headache type 09/29/2024 Orders Only GENERIC EXTERNAL DATA DEPARTMENT Provider, Generic External Data 09/08/2024 Refill [facility]INE [address] [place] [address] Anny Carcamo MD Nonintractable headache, unspecified chronicity pattern, unspecified headache type 08/09/2024 Refill [facility]INE [address] [place] [address] Anny Carcamo MD Nonintractable headache, unspecified chronicity [...] Description 11/23/2024 2:00 PM EDT Clinical Support [facility] [address] [place], [place] [phone] Health Maintenance Due Date Last Done Comments Family Planning (PISQ) 1998 Influenza Vaccine (#1) 2024 3, 04/10/2022, 08/10/2017, Additional history exists Depression Screening 02/15/2025 02/16/2024, 02/16/20 24 Pap Smear 05/19/2025 05/19/2022 Mammogram 07/31/2025 07/31/2023 Alcohol/Substance Use Screening 11/02/2025 11/02/2024 Tobacco Screening 11/02/2025 11/02/2024 SDOH Screening 11/03/2025 11/03/2024 Cervical Cancer Screening 05/19/2027 HPV/Cotest 05/19/2027 05/19/2022 Lipid Panel 11/02/2029 11/02/2024, 06/05, 04/10/2022 Zoster Vaccines (1 of 2) 2033 [...] Procedure Name Priority Date/Time Associated Diagnosis Comments LIPID PANEL WITH REFLEX TO DIRECT LDL Routine 11/02/2024 11:02 AM EDT Screening for lipid disorders COMPREHENSIVE METABOLIC PANEL Routine 11/02/2024 11:02 AM EDT Elevated BP without diagnosis of hypertension HEMOGLOBIN A1C Routine 11/02/2024 11:02 AM EDT Screening for diabetes mellitus TSH W/REFLEX TO FT4 Routine 11/02/2024 1 1:02 AM EDT Elevated BP without diagnosis of hypertension US PELVIS TRANSVAGINAL Routine 10/28/2024 1:56 PM EDT HCG, TOTAL, QN Routine 09/29/2024 1:54 PM EDT TSH W/REFLEX TO FT4 Routine 09/29/2024 1 :54 PM EDT CBC Routine 09/29/2024 1:54 PM EDT BI MAMMOGRAM SCREENING TOMOSYNTHESIS BILATERAL Routine 07/31/2023 12:50 PM EST THINPREP IMAGING PAP AND HPV MRNA E6/E7 [...] to Free T4 (11/02/2024 11:02 AM EDT) Only the most recent of2 resultswithin the time period is included. TSH reflex Free T4 1.88 0.32 - 4.0 uIU/mL [facility] Blood 11/02/2024 11:0 2 AM EDT 11/02/2024 1:27 PM EDT us Anny Carcamo MD LAB BLOOD ORDERABLES Final Resul t [facility] [address] [place] [address] [phone] * (ABNORMAL) Lipid Panel with Reflex to Direct LDL (11/02/2024 11:02 AM EDT) Triglycerides 196(H) <150 mg/dL [facility] Comment:Desirable Triglyceri de: less than 150 mg/dLBorderline High Triglyceride 150-199 mg/dLHigh Triglyceride: 200-499 mg/dLVery High Triglyceride: greater than or equal to 5OO mg/dL Cholesterol 191 <200 mg/dL [facility] Comment:Desirable Cholestero l: less than 200 mg/dLBorderline High Cholesterol: 200-239 mg/dLHigh Cholesterol: greater than 239 mg/dL LDL Cholesterol Calculated 93 <100 mg/dL [facility] Comment:Desirable LDL: less than 100 mg/dLNear Optimal/Above Optimal LDL: 110- 129 mg/dLBorderline High LDL: 130-159 mg/dLHigh LDL: 160-189 mg/dLVery High LDL: greater than or equal to 190 mg/dL HDL Cholesterol 59 >40 mg/dL [facility] Comment:Desirable HDL: great er than 40 mg/dL Note: This HDL assay may give artificially low results in patients with liver disease. Blood 11/02/2024 11:0 2 AM EDT 11/02/2024 1:27 PM EDT us Anny Carcamo MD LAB BLOOD ORDERABLES Final Resul t [facility] [address] [place] [phone] [phone] * Hemoglobin A1c (11/02/2024 11:02 AM EDT) Hemoglobin A1c 5.4 <6.0 % [facility] Comment:Hemoglobin A1C Refer ence Range Adults: 4.8 - 6.0 % Non diabetic: < 6.0 % Goal: < 7.0 %Additional Action Suggested: > 8.0 %Note: Hemoglobin A1c results are invalid for patients with abnormal amounts of HbF. Blood transfusions may impact the HbA1c concentration in the patient sample. Estimated Average Glucose 108 mg/dL [facility] Comment:eAG = Estimated ave rage glucose which is %A1C expressed asaverage glucose, using the formula of the [id number] Glucose study (ADAG), Diabetes Care, Vol.31,#8,Feb. 2007 Blood Venous blood specimen / Unknown 11/02/2024 11:02 AM EDT 11/02/2024 1:27 PM EDT us Anny Carcamo MD LAB BLOOD ORDERABLES Final Resul t [facility] [address] [place] [phone] [phone] * (ABNORMAL) Comprehensive Metabolic Panel (11/02/2024 11:02 AM EDT) Sodium 141 135 - 145 mmol/L [facility] Potassium 4.2 3.3 - 5.1 mmol/L [facility] Chloride 104 96 - 108 mmol/L [facility] Carbon Dioxide 30(H) 22 - 29 mmol/L [facility] Anion Gap 11(L) 12 - 20 [facility] Urea Nitrogen (BUN) 14 9 - 16 mg/dL [facility] Creatinine, Serum 0.77 0.5 - 1.4 mg/dL [facility] Estimated Glomerular Filt Rate >60 [facility] Comment:Chronic Kidney Disea se: Estimated GFR < 60 mL/min/1.91r2Ncgxxi Kidney Disease: Estimated GFR < 15 mL/min/1.73m2 Glucose 92 60 - 115 mg/dL [facility] Calcium 9.7 8.4 - 10.2 mg/dL [facility] Bilirubin, Total 0.4 0.0 - 1.0 mg/dL [facility] Aspartate Amino Transferase 26 5 - 31 U/L [facility] Alanine Aminotransferase 36(H) 0 - 31 U/L [facility] Total Protein 7.2 6.5 - 8.0 g/dL [facility] Albumin Level 4.4 3.5 - 5.0 g/dL [facility] Alkaline Phosphatase 85 39 - 117 U/L [facility] Blood Venous blood specimen / Unknown 11/02/2024 11:02 AM EDT 11/02/2024 1:27 PM EDT us Anny Carcamo MD LAB BLOOD ORDERABLES Final Resul t [facility] [address] [place] [address] [phone] * US Pelvis Transvaginal (10/28/2024 1:56 PM EDT) Anatomical Region Laterality Modality Pelvis Ultrasound 10/28/2024 1:56 PM EDT Narrative 10/28/2024 1:58 PM EDT ? [facility] ?[address] ?[place] [address] ? Ultrasound Report ? Signed ? Patient: Jarad,Kay ?MR#: [id number] ?? [id number] ? : 1985 ?Acct:[id number] ? Age/Sex: 39 / F ?ADM Date: 10/26/24 ? Loc: HO.US ? Attending Dr: Bruce Weber MD ? Ordering Physician: Bruce Weber MD ?? Date of Service: 10/26/24 ?? Procedure(s): US pelvic and transvaginal ?? Accession Number(s): [id number] ? cc: Anny Carcamo MD; Bruce Weber MD ? CLINICAL HISTORY: N93.9 - Abnormal uterine and vaginal bleeding, unspecified ? Ultrasound pelvis transabdominal and transvaginal. ? COMPARISON: US pelvis dated 11/02/23 at 14:37 EDT ? Technique: Real time sonographic imaging, including color-flow imaging, ?? was performed by the railroad car truck builder. Multiple employer relations representative static images ?? were saved for [...] ?10/28/24 1357 ? DD/ 1356 ? TD/TT: 10/28/24 1356 ? Major Gifts Officer: ? Procedure Note Scott, Image - 10/28/2024 [place] [address] Ultrasound Report Signed Patient: Jo Abraham#: [id number] : 1985Acct:[id number] Age/Sex: 39 / FADM Date: 10/26/24 Loc: HO. Attending Dr: Bruce Weber MD Ordering Physician: Bruce Weber MD Date of Service: 10/26/24 Procedure(s): US pelvic and transvaginal Accession Number(s): [id number] cc: Anny Carcamo MD; Bruce Weber MD CLINICAL HISTORY: N93.9 - Abnormal uterine and vaginal bleeding,unspecified Ultrasound pelvis transabdominal and transvaginal. COMPARISON: US pelvis dated 11/02/23 at 14:37 EDT Technique: Real time sonographic imaging, including color-flow imaging, was performed by the railroad car truck builder. Multiple employer relations representative static images were saved for review. [...] 10/28/24 1357 DD/ 1356 TD/TT: 10/28/24 1356 Major Gifts Officer: us [facility] External Provider IMG US PROCEDURES Edited Result - Final * CBC (09/29/2024 1:54 PM EDT) White Blood Count 9.0 4.8 - 10.8 X10*3/uL [facility] Red Blood Count 4.54 4.20 - 5.50 X10*6/uL [facility] Hemoglobin 12.4 12.0 - 16.0 g/dl [facility] Hematocrit 37.7 37.0 - 47.0 % [facility] Mean Corpuscular Volume 83.0 80.0 - 98.0 fL [facility] Mean Corpuscular Hemoglobin 27.3 27.0 - 33.0 pg [facility] Mean Corpuscular HGB Conc 32.9 31.0 - 35.0 g/dl [facility] Red Cell Distribution Width 14.3 11.0 - 16.0 % [facility] Platelet Count 324 160 - 400 X10*3/uL [facility] Mean Platelet Volume 9.5 9.4 - 12.3 fL [facility] NRBC Pct Auto 0.0 0.0 - 0.2 /100WBC [facility] NRBC Abs Auto 0.000 0.0 - 0.012 X10*3/uL [facility] 09/29/2024 1:54 PM EDT 09/29/2024 1:54 PM EDT Generic External Data Provider LAB BLOOD ORDERAB LES Final Result Performing Organization Address [facility] de Phone Number [facility] [address] [place] [phone] * hCG, Total, Quantitative (09/29/2024 1:54 PM EDT) HCG Quantitative <2 mIU/mL [facility] Comment:Weeks post LMP Appro ximate hCG(Last Menstrual Period) Range (mIU/ml)3 - 4 weeks 9 - 1304 - 5 weeks 75 - 2,6005 - 6 weeks 850 - 20,8006 - 7 weeks 4000 - 100,2007 - 12 weeks 11,500 - 289,40309 - 16 weeks 18,300 - 137,68768 - 29 weeks (2nd trimester) 1,400 - 53,83222 - 41 weeks (3rd trimester) 940 - [...] ORDERAB LES Final Result Performing Organization Address [facility] Co de Phone Number [facility] [address] [place] [phone] * BI Mammogram Screening Tomosynthesis Bilateral (07/31/2023 12:50 PM EST) Anatomical Region Laterality Modality Breast Bilateral Mammography 07/31/2023 12:5 0 PM EST Narrative 08/17/2023 6:29 AM EST ? [facility] ? [address] ?[place] [address] ? Mammography Report ? Signed ? Patient: Jarad,Kya ?MR#: [id number] ?? [id number] ? : 1985 ?Acct:[id number] ? Age/Sex: 38 / F ?ADM Date: 07/31/23 ? Loc: HO.MAMMO ? Attending Dr: Anny Carcamo MD ? Ordering Physician: Anny Carcamo MD ?Results: 1Negative ? Date of Service: 07/31/23 ?Follow Up: 1 Year From Orig ?? inal Mammogram ? Procedure(s): MM tomosynthesis screening BI ?? Accession Number(s): [id number] ? cc: Anny Carcamo MD ? EXAMINATION: [...] 08/17/23624 ? DD/ 1250 ? TD/TT: ? Major Gifts Officer: ? Procedure Note Donrupal, Image - 08/17/2023 [facility] [address] [place], [place] [address] Mammography Report Signed Patient: Jo Abraham#: [id number] : 1985Acct:[id number] Age/Sex: 38 / FADM Date: 07/31/23 Loc: DION Attending Dr: Anny Carcamo MD Ordering Physician: Anny Carcamo MDResults: 1Negative Date of Service: 07/31/23Follow Up: 1 Year From Orig inal Mammogram Procedure(s): MM tomosynthesis screening BI Accession Number(s): [id number] cc: Anny Carcamo MD EXAMINATION: MM SCREENING [...] in OV> 08/17/23 0625 DD/ 1250 TD/TT: Major Gifts Officer: Anny Carcamo MD IMG BI PROCEDURES Final Result * THINPREP TIS PAP AND HPV mRNA E6/E7 WITH REFLEX TO HPV 16,18/45 (05/19/2022 10:42 AM EST) Clinical Information: None given CONVERTED LEGACY LABS COMMENT SEE COMMENT CONVERTCira D LEGACY LABS Comment: EXPLANATORY NOTE: ? [...] been evaluated with computer assisted technology. CONVERTED [facility] Inside [employer] : SEE COMMENT CONVERTED LEGACY LABS Comment: MSM, CT(ASCP) CT screening location: [address] ??[address] HPV nRNA E6/E7 Not Detected Not Detected CONVERTED [facility]FF Comment: Methodology: Fourdrinier Tender-Mediated Amplification This assay detects E6/E7 viral messenger RNA (mRNA) from 14 high-risk HPV types (16,18,31,33,35,39,45,51,52,56,58,59,66,68). ? Cervical sources are required for HPV testing. If a vaginal source from a patient who has had a total hysterectomy with removal of cervix was ?? submitted, please contact the testing laboratory for alternative testing options. ?? For additional information, please refer to http://Neogrowth.Urge/faq/SGN417a5 (This link if provided for information/ educational [...] Marroquin CNM LAB PATHOLOGY ORDERABLES Final Result CONVERTED LEGACY [...] a test for HCV RNA (test code 39881) is suggested. ?? For additional information please refer to http://Neogrowth.Urge/faq/AUG23s9 (This link is being provided for informational/ [...] ? For additional information please refer to http://education.Urge/faq/SSZ980 (This link is being provided for informational/ educational purposes only.) ? The performance of this assay has not been clinically validated in patients less than 2 years old. ?? 04/10/2022 11:4 9 AM EDT us Anny Carcamo MD LAB BLOOD ORDERABLES Final Resul t CONVERTED LEGACY LABS from Last 3 Months or Most Recently Relevant to Health Maintenance Insurance [facility] < [address] [place] [id number] Care Teams Automated Process Operator Relationship Specialty Start Date End Date Anny Carcamo MD [address] [place] [phone] PCP - General Family Medicine 01/20/14
== END 2024-11-03 15:45 | disposition home or self-care (01) ==
LOC: HO.HWS 15:01
PROVIDERS: PCP Family Medicine; Visit Provider Obstetrics & Gynecology
DX: N93.9 Abnormal uterine and vaginal bleeding, unspecified (principal); D25.9 Leiomyoma of uterus, unspecified
CPT/HCPCS: 99213

== ENCOUNTER → 2024-11-03 15:01 | Outpatient (BNVA) | payer OTHER, SELFPAY | PROVIDERS: PCP Family Medicine; Visit Provider Obstetrics & Gynecology | DX: N93.9 Abnormal uterine and vaginal bleeding, unspecified (principal); D25.9 Leiomyoma of uterus, unspecified | CPT/HCPCS: 99212 ==

== ENCOUNTER 2024-11-16 13:15 | Outpatient (REF) | payer OTHER, SELFPAY ==
--- OUTSIDE RECORDS SUMMARY | 2024-11-16 13:28 | XMS_ITS | Encounter Summary ---
Author Organization [employer] Address [address] [facility] 7t [place] [address] Care Team Providers Care Firebreak Cutter Name Role Phone Anny Carcamo MD Primary Care Provider [phone] Reason for Referral * Consultation (Routine) - Closed Specialty Diagnoses / Procedures Referred By Contac t Referred To Contact Obstetrics and Gynecology Diagnoses Abnormal uterine bleeding (AUB) Fibroid Anny Carcamo MD [address] [place] [phone] Phone: tel: fax: [facility] [address] (Main Hospital Entrance) [place], [place] Phone: tel: fax: Referral ID Status Reason Start Date Expiration Date V isits Requested Visits Authorized [id number] Closed Specialty Services Required 12/18/2023 12/17/2024 1 1 Encounter Details Date Type Department Care Team (Late st Contact Info) Description 12/18/2023 Orders Only [facility] [address] [place], [place] [phone] Anny Carcamo MD [address] [place], [place] [phone] Abnormal uterine bleeding (AUB) (Primary Dx); Fibroid; [...] fundus. 2. Normal ovaries. - refer to EXTENSION DIVISION DIRECTOR - PAP at next visit * Assessment & Plan Note - Anny Carcamo MD - 12/18/2023 10:34 AM EDTAssociated Problem(s): Fibroid - 11/02/23 Pelvic US showed 1.2 cm exophytic fibroid extends off the uterine fundus. - referred to EXTENSION DIVISION DIRECTOR documented in this encounter Plan of Treatment Upcoming Encounters Date Type Department Care Team (Late st Contact Info) Description 11/23/2024 2:00 PM EDT Clinical Support [facility] [address] [place] [phone] Scheduled Referrals Name Type Priority Associated Diagnoses [...] Vitamin B12 303 200 - 900 pg/mL [facility] Comment:NORMAL 200-900 PG/ML INDETERMINATE 160-199 PG/ML DEFICIENT < 160 PG/ML Folate 9.0 > or = 4.0 ng/mL [facility] Comment:Reference Values:> o r = 4.0 ng/mL< 4.0 ng/mL suggests folate deficiency Methotrexate, aminopterin and folinic acid(leucovorin) are chemotherapeutic agents whose molecularstructures are similar to folate; therefore, the Architectfolate assay cannot be used for patients using these drugs. 02/16/2024 4:00 PM EDT 02/16/2024 5:46 PM EDT Anny Carcamo MD LAB BLOOD ORDERABLES Final Resul t Performing Organization Address [facility] Co de Phone Number [facility] [address] [place] [phone] * Iron And Total Iron Binding Capacity (02/16/2024 4:00 PM EDT) Iron 84 30 - 160 mcg/dL [facility] Total Iron Binding Capacity 318 228 - 428 mcg/dL [facility] Percent Iron Saturation 26 15 - 50 % [facility] Unsaturated Iron Binding 234 ug/dL [facility] Blood Venous blood specimen / Unknown 02/16/2024 4:00 PM EDT 02/16/2024 5:46 PM EDT Anny Carcamo MD LAB BLOOD ORDERABLES Final Resul t Performing Organization Address [facility] Co de Phone Number [facility] [address] [place] [phone] * Ferritin (02/16/2024 4:00 PM EDT) Ferritin 113 10 - 250 ng/mL [facility] Blood Venous blood specimen / Unknown 02/16/2024 4:00 PM EDT 02/16/2024 5:46 PM EDT Anny Carcamo MD LAB BLOOD ORDERABLES Final Resul t Performing Organization Address [facility] Co de Phone Number [facility] [address] [place] [phone] * (ABNORMAL) CBC auto differential (02/16/2024 4:00 PM EDT) White Blood Count 8.7 4.8 - 10.8 X10*3/uL [facility] Red Blood Count 4.64 4.20 - 5.50 X10*6/uL [facility] Hemoglobin 13.0 12.0 - 16.0 g/dl [facility] Hematocrit 39.6 37.0 - 47.0 % [facility] Mean Corpuscular Volume 85.3 80.0 - 98.0 fL [facility] Mean Corpuscular Hemoglobin 28.0 27.0 - 33.0 pg [facility] Mean Corpuscular HGB Conc 32.8 31.0 - 35.0 g/dl [facility] Red Cell Distribution Width 13.1 11.0 - 16.0 % [facility] Platelet Count 308 160 - 400 X10*3/uL [facility] Mean Platelet Volume 9.7 9.4 - 12.3 fL [facility] Neutrophils Percent Auto 58.9 45 - 73 % [facility] Imm Gran Pct Auto 0.5(H) 0.0 - 0.4 % [facility] Lymphocytes Percent Auto 33.6 20 - 40 % [facility] Monocytes Percent Auto 5.7 2 - 11 % [facility] Eosinophils Percent Auto 1.0 0 - 4 % [facility] Basophils Percent Auto 0.3 0 - 2 % [facility] NRBC Pct Auto 0.0 0.0 - 0.2 /100WBC [facility] Neutrophils Absolute Auto 5.1 2.0 - 8.3 x10*3/uL [facility] Imm Gran Abs Auto 0.04(H) 0.00 - 0.03 X10*3/uL [facility] Lymphocytes Absolute Auto 2.9 1.2 - 4.9 X10*3/uL [facility] Monocytes Absolute Auto 0.5 0.1 - 1.2 X10*3/uL [facility] Eosinophils Absolute Auto 0.1 0.0 - 0.4 X10*3/uL [facility] Basophils Absolute Auto 0.0 0.0 - 0.2 X10*3/uL [facility] NRBC Abs Auto 0.000 0.0 - 0.012 X10*3/uL [facility] Blood Venous blood specimen / Unknown 02/16/2024 4:00 PM EDT 02/16/2024 5:46 PM EDT Anny Carcamo MD LAB BLOOD ORDERABLES Final Resul t [facility] [address] [place] [phone] documented in this encounter Visit Diagnoses Diagnosis Abnormal uterine bleeding (AUB)- Primary Fibroid Leiomyoma of uterus, unspecified Anemia, unspecified type documented in this encounter Additional Health Concerns Assessment Noted Time PHQ-9 Depression Total Score: 0 06/23/20 23 2:52 PM EST documented as of this encounter Care Teams Firebreak Cutter Relationship Specialty Start Date End Date Anny Carcamo MD [address] [place] [address] PCP - General Family Medicine 01/20/14 documented as of this encounter
--- OUTSIDE RECORDS SUMMARY | 2024-11-16 13:28 | XMS_ITS | Encounter Summary ---
Author Organization [employer] Address [address] [facility] [address] [place] [address] Care Team Providers Care Strategic Debriefing Officer Name Role Phone Anny Carcamo MD Primary Care Provider [phone] Encounter Details Date Type Department Care Team (Latest Contact Info) Description 12/21/2018 Abstract [facility] CONVERSIONS Dental, Provider, DDS Social History [...] Description 11/23/2024 2:00 PM EDT Clinical Support [facility] [address] [place] [address] documented as of this encounter Visit Diagnoses Not on filedocumented in this encounter Care Teams Strategic Debriefing Officer Relationship Specialty Start Date End Date Anny Carcamo MD [address] [place] [address] PCP - General Family Medicine 01/20/14 documented as of this encounter
--- OUTSIDE RECORDS SUMMARY | 2024-11-16 13:28 | XMS_ITS | Encounter Summary ---
Author Organization [employer] Address [address] [facility] 7t [place] [address] Care Team Providers Care Music Therapist Name Role Phone Anny Carcamo MD Primary Care Provider [phone] Reason for Visit * Reason Comments Med Refill Encounter Details Date Type Department Care Team ([facility] Contact Info) Description 07/20/2024 Refill [facility] [address] [place], [place] [phone] Anny Carcamo MD [address] [place], [place] [phone] Social History Tobacco Use Types Packs/Day Years [...] Description 11/23/2024 2:00 PM EDT Clinical Support [facility] [address] [place] [address] documented as of this encounter Visit Diagnoses Not on filedocumented in this encounter Additional Health Concerns Assessment Noted Time PHQ-9 Depression Total Score: 7 02/16/20 24 3:24 PM EDT documented as of this encounter Care Teams Music Therapist Relationship Specialty Start Date End Date Anny Carcamo MD [address] [place] [address] PCP - General Family Medicine 01/20/14 documented as of this encounter
--- OUTSIDE RECORDS SUMMARY | 2024-11-16 13:28 | XMS_ITS | Encounter Summary ---
Author Organization [email or web address] Address [address] [facility] [address] [place] [address] Care Team Providers Care Wealth Management Director Name Role Phone Anny Carcamo MD Primary Care Provider [phone] Reason for Visit * Reason Onset Date Comments Returning Call 10/15/2023 Encounter Details Date Type Department Care Team ([facility] st Contact Info) Description 10/15/2023 Telephone [facility] MED[facility] [address] [place], [place] [phone] Anny Carcamo MD [address] [place], [place] [phone] Returning Call Social History Tobacco Use Types [...] Miscellaneous Notes * Telephone Encounter - Zachary Sarmad - 10/15/2023 10:52 AM EDT Tc from pt returning call regarding message below. ALICE Nicholson placed outbound call to patient to complete pre-visit planning. No answer at this time. Patient name and were not confirmed. CC left voicemail requesting return call. Direct contactinformation provided. Please contact pt at [phone] documented in this encounter Plan of Treatment Upcoming Encounters Date Type Department Care Team (Late st Contact Info) Description 11/23/2024 2:00 PM EDT Clinical Support [facility] [address] [place] [address] documented as of this encounter Visit Diagnoses Not on filedocumented in this encounter Additional Health Concerns Assessment Noted Time PHQ-9 Depression Total Score: 0 06/23/20 23 2:52 PM EST documented as of this encounter Care Teams Wealth Management Director Relationship Specialty Start Date End Date Anny Carcamo MD [address] [place] [address] PCP - General Family Medicine 01/20/14 documented as of this encounter
--- OUTSIDE RECORDS SUMMARY | 2024-11-16 13:28 | XMS_ITS | Clinical Summary ---
Author Organization [employer] Address [address] [facility] 7t [place] [address] Care Team Providers Care Solutions Executive Security Name Role Phone Anny Carcamo MD Primary Care Provider [phone] Allergies No known active allergies Medications albuterol [...] (Maximum 4 treatments per day). 75 mL 02/16/20 24 025 Active MAGnesium-Oxid e 400 [...] TWICE DAILY NEEDED FOR PAIN 60 tablet 11/12/19 25 Active naproxen (Naprosyn) 500 MG tabletIndicati ons:Nonintract able headache, unspecified chronicity pattern, unspecified headache type TAKE 1 TABLET(500 MG) BY MOUTH TWICE DAILY NEEDED FOR PAIN 60 tablet 10/13/19 25 025 Discontinued Active Problems Problem Noted Date Diagnosed Date Health care maintenance 11/06/2024 Assessment & Plan (11/06/2024 9:41 PM EDT): Prevention - discussed about safety - reviewed mental and behavioral health Cancer screening - colon: average risk - breast: average risk - Normal mammography in Jul 2023; upcoming appt - cervical: average risk - Cotest on 09/29/24 negative / negative - skin: average risk - lung: average risk Intimate partner violence screen: negative Depression, recurrent 02/21/2024 Assessment & Plan (11/02/2024 [...] Endometrium thickness 4 mm. - Evaluated by Lead Python Developer in September 2024 Assessment & Plan (02/16/2024 3:54 PM EDT): - 11/02/23 Pelvic US showed 1.2 cm exophytic fibroid extends off the uterine fundus. - referred to DIRECTOR DIGITAL STRATEGY Assessment & Plan (12/18/2023 10:34 AM EDT): - 11/02/23 Pelvic US showed 1.2 cm exophytic fibroid extends off the uterine fundus. - referred to DIRECTOR DIGITAL STRATEGY Abnormal uterine bleeding (AUB) 10/28/2023 Assessment & Plan (11/02/2024 11:29 AM EDT): - oligomenorrhea rather than menorrhagia, question of PCOS - 11/02/23 Pelvic US 1. 1.2 cm exophytic fibroid extends off the uterine fundus. 2. Normal ovaries. - evaluated by DIRECTOR DIGITAL STRATEGY - Normal pap in September 2024 Assessment & Plan (02/16/2024 3:51 PM EDT): - oligomenorrhea rather than menorrhagia, question of PCOS - 11/02/23 Pelvic US 1. 1.2 cm exophytic fibroid extends off the uterine fundus. 2. Normal ovaries. - refer to DIRECTOR DIGITAL STRATEGY - check anemia lab Assessment & Plan (12/18/2023 10:36 AM EDT): - oligomenorrhea rather than menorrhagia, question of PCOS - 11/02/23 Pelvic US 1. 1.2 cm exophytic fibroid extends off the uterine fundus. 2. Normal ovaries. - refer to DIRECTOR DIGITAL STRATEGY - PAP at next visit Assessment & Plan (10/28/2023 5:35 AM EDT): - oligomenorrhea rather than menorrhagia, question of PCOS - evaluate AUB with US - schedule PAP after she returns from her trip Elevated BP without diagnosis of hypertension Assessment & Plan (11/06/2024 9:38 PM EDT): -Goal BP < 140/90 per [...] working on lifestyle modifications -Recommended self-monitoring BP. -Return for BP check in 1 mo. If home SBP > 130, will start amlodipine 2.5 mg daily. If clinic SBP is high, but home BP is normal, then will schedule for another BP check. -Follow up in 3 mo, sooner if any problem arises Assessment [...] Encounters Date Type Department Care Team Description 11/11/2024 Refill [facility] MED[facility]INE [address] [place] [address] Name, MD aRy Nonintractable headache, unspecified chronicity pattern, unspecified headache type 11/02/2024 9:45 AM EDT Office Visit [facility] [address] [place] [address] Anny Carcamo MD Mild intermittent asthma without complication (Primary Dx); Elevated BP without diagnosis of hypertension; Hemorrhoids, unspecified hemorrhoid type; Abnormal uterine bleeding (AUB); History of kidney stones; Impaired fasting glucose; Hypertrophy of tonsils; Allergic rhinitis, unspecified seasonality, unspecified trigger; Fibroid; Depression, recurrent (CMS/HCC); Learning disability; Migraine without status migrainosus, not intractable, unspecified migraine type; Screening for lipid disorders; Screening for diabetes mellitus; Dietary counseling; Exercise counseling; Class 1 obesity due to excess calories without serious comorbidity with body mass index (BMI) of 34.0 to 34.9 in adult; Health care maintenance 11/02/2024 Travel 11/01/2024 Telephone [facility] MEDICINE [address] [place] [address] Andre Kirkpatrick [place] CHART PREP 10/20/2024 Patient Outreach [facility] [address] [place] [address] Anny Carcamo MD Pre-visit Planning ([facility] unable to reach [facility] ) 10/12/2024 Refill [facility] [address] [place] [address] Anny Carcamo MD Nonintractable headache, unspecified chronicity pattern, unspecified headache type 09/29/2024 Orders Only GENERIC EXTERNAL DATA DEPARTMENT Provider, Generic External Data 09/08/2024 Refill [facility]INE [address] [place] [address] Anny Carcamo MD Nonintractable headache, unspecified chronicity pattern, unspecified headache type from Last 3 Months Immunizations Immunization Administration Dates Next Due Influenza injectable quadriv [...] Description 11/23/2024 2:00 PM EDT Clinical Support [facility] [address] [place] [address] Health Maintenance Due Date Last Done Comments Family Planning (PISQ) 1998 Influenza Vaccine (#1) 2024 3, 04/10/2022, 08/10/2017, Additional history exists Depression Screening 02/15/2025 02/16/2024, 02/16/20 24 Pap Smear 05/19/2025 05/19/2022 Mammogram 07/31/2025 07/31/2023 Alcohol/Substance Use Screening 11/02/2025 11/02/2024 SDOH Screening 11/03/2025 11/03/2024 Tobacco Screening 11/06/2025 11/06/2024 Cervical Cancer Screening 05/19/2027 HPV/Cotest 05/19/2027 05/19/2022 [...] Free T4 1.88 0.32 - 4.0 uIU/mL [facility] Blood 11/02/2024 11:0 2 AM EDT 11/02/2024 1:27 PM EDT us Anny Carcamo MD LAB BLOOD ORDERABLES Final Resul t [facility] [address] [place] [phone] * (ABNORMAL) Lipid Panel with Reflex to Direct LDL (11/02/2024 11:02 AM EDT) Triglycerides 196(H) <150 mg/dL [facility] Comment:Desirable Triglyceri de: less than 150 mg/dLBorderline High Triglyceride 150-199 mg/dLHigh Triglyceride: 200-499 mg/dLVery High Triglyceride: greater than or equal to 5OO mg/dL Cholesterol 191 <200 mg/dL [facility] Comment:Desirable Cholestero l: less than 200 mg/dLBorderline High Cholesterol: 200-239 mg/dLHigh Cholesterol: greater than 239 mg/dL LDL Cholesterol Calculated 93 <100 mg/dL [facility] Comment:Desirable LDL: less than 100 mg/dLNear Optimal/Above Optimal LDL: 110- 129 mg/dLBorderline High LDL: 130-159 mg/dLHigh LDL: 160-189 mg/dLVery High LDL: greater than or equal to 190 mg/dL HDL Cholesterol 59 >40 mg/dL [facility] Comment:Desirable HDL: great er than 40 mg/dL Note: This HDL assay may give artificially low results in patients with liver disease. Blood 11/02/2024 11:0 2 AM EDT 11/02/2024 1:27 PM EDT us Anny Carcamo MD LAB BLOOD ORDERABLES Final Resul t Performing Organization Address [facility] Co de Phone Number [facility] [address] [place] [phone] * Hemoglobin A1c (11/02/2024 11:02 AM EDT) Hemoglobin A1c 5.4 <6.0 % [facility] Comment:Hemoglobin A1C Refer ence Range Adults: 4.8 - 6.0 % Non diabetic: < 6.0 % Goal: < 7.0 %Additional Action Suggested: > 8.0 %Note: Hemoglobin A1c results are invalid for patients with abnormal amounts of HbF. Blood transfusions may impact the HbA1c concentration in the patient sample. Estimated Average Glucose 108 mg/dL [facility] Comment:eAG = Estimated ave rage glucose which is %A1C expressed asaverage glucose, using the formula of the V2F-BrlngvlUtetjmj Glucose study (ADAG), Diabetes Care, Vol.31,#8,Feb. 2007 Blood Venous blood specimen / Unknown 11/02/2024 11:02 AM EDT 11/02/2024 1:27 PM EDT us Anny Carcamo MD LAB BLOOD ORDERABLES Final Resul t Performing Organization Address [facility] Co de Phone Number [facility] [address] [place] [phone] * (ABNORMAL) Comprehensive Metabolic Panel (11/02/2024 11:02 AM EDT) Sodium 141 135 - 145 mmol/L [facility] Potassium 4.2 3.3 - 5.1 mmol/L [facility] Chloride 104 96 - 108 mmol/L [facility] Carbon Dioxide 30(H) 22 - 29 mmol/L [facility] Anion Gap 11(L) 12 - 20 [facility] Urea Nitrogen (BUN) 14 9 - 16 mg/dL [facility] Creatinine, Serum 0.77 0.5 - 1.4 mg/dL [facility] Estimated Glomerular Filt Rate >60 [facility] Comment:Chronic Kidney Disea se: Estimated GFR < 60 mL/min/1.36x2Voqvim Kidney Disease: Estimated GFR < 15 mL/min/1.73m2 Glucose 92 60 - 115 mg/dL [facility] Calcium 9.7 8.4 - 10.2 mg/dL [facility] Bilirubin, Total 0.4 0.0 - 1.0 mg/dL [facility] Aspartate Amino Transferase 26 5 - 31 U/L [facility] Alanine Aminotransferase 36(H) 0 - 31 U/L [facility] Total Protein 7.2 6.5 - 8.0 g/dL [facility] Albumin Level 4.4 3.5 - 5.0 g/dL [facility] Alkaline Phosphatase 85 39 - 117 U/L [facility] Blood Venous blood specimen / Unknown 11/02/2024 11:02 AM EDT 11/02/2024 1:27 PM EDT us Anny Carcamo MD LAB BLOOD ORDERABLES Final Resul t [facility] [address] [place] [phone] * US Pelvis Transvaginal (10/28/2024 1:56 PM EDT) Anatomical Region Laterality Modality Pelvis Ultrasound 10/28/2024 1:56 PM EDT Narrative 10/28/2024 1:58 PM EDT ? [facility] ?[address] ?[place] [address] ? Ultrasound Report ? Signed ? Patient: Jarad,Kay ?MR#: [id number] ?? [id number] ? : 1985 ?Acct:[id number] ? Age/Sex: 39 / F ?ADM Date: 04/23/25 ? Loc: HO.US ? Attending Dr: Bruce Weber MD ? Ordering Physician: Bruce Weber MD ?? Date of Service: 10/26/24 ?? Procedure(s): US pelvic and transvaginal ?? Accession Number(s): [id number] ? cc: Anny Carcamo MD; Bruce Weber MD ? CLINICAL HISTORY: N93.9 - Abnormal uterine and vaginal bleeding, unspecified ? Ultrasound pelvis transabdominal and transvaginal. ? COMPARISON: US pelvis dated 11/02/23 at 14:37 EDT ? Technique: Real time sonographic imaging, including color-flow imaging, ?? was performed by the switchboard inspector. Multiple food service sales representatives static images ?? were saved for review. [...] signed by Norberto Hankins MD in OV> ?10/28/247 ? DD/ ? TD/TT: 10/28/24 1356 ? Caustic Mixer: ? Procedure Note Aureliano Chavez - 10/28/2024 [phone] [place] [address] Ultrasound Report Signed Patient: Kay AbrahamMR#: [id number] : 1985Acct:[id number] Age/Sex: 39 / FADM Date: 10/26/24 Loc: HO.US Attending Dr: Bruce Weber MD Ordering Physician: Bruce Weber MD Date of Service: 10/26/24 Procedure(s): US pelvic and transvaginal Accession Number(s): [id number] cc: Anny Carcamo MD; Bruce Weber MD CLINICAL HISTORY: N93.9 - Abnormal uterine and vaginal bleeding,unspecified Ultrasound pelvis transabdominal and transvaginal. COMPARISON: US pelvis dated 11/02/23 at 14:37 EDT Technique: Real time sonographic imaging, including color-flow imaging, was performed by the switchboard inspector. Multiple food service sales representatives static images were saved for review. FINDINGS: [...] 10/28/24 1357 DD/ 1356 TD/TT: 10/28/24 1356 Caustic Mixer: [facility] External Provider IMG US PROCEDURES Edited Result - Final * CBC (09/29/2024 1:54 PM EDT) White Blood Count 9.0 4.8 - 10.8 X10*3/uL [facility] Red Blood Count 4.54 4.20 - 5.50 X10*6/uL [facility] Hemoglobin 12.4 12.0 - 16.0 g/dl [facility] Hematocrit 37.7 37.0 - 47.0 % [facility] Mean Corpuscular Volume 83.0 80.0 - 98.0 fL [facility] Mean Corpuscular Hemoglobin 27.3 27.0 - 33.0 pg [facility] Mean Corpuscular HGB Conc 32.9 31.0 - 35.0 g/dl [facility] Red Cell Distribution Width 14.3 11.0 - 16.0 % [facility] Platelet Count 324 160 - 400 X10*3/uL [facility] Mean Platelet Volume 9.5 9.4 - 12.3 fL [facility] NRBC Pct Auto 0.0 0.0 - 0.2 /100WBC [facility] NRBC Abs Auto 0.000 0.0 - 0.012 X10*3/uL [facility] 09/29/2024 1:54 PM EDT 09/29/2024 1:54 PM EDT us Generic External Data Provider LAB BLOOD ORDERAB LES Final Result [facility] [address] [place] [phone] * hCG, Total, Quantitative (09/29/2024 1:54 PM EDT) HCG Quantitative <2 mIU/mL [facility] Comment:Weeks post LMP Appro ximate hCG(Last Menstrual Period) Range (mIU/ml)3 - 4 weeks 9 - 1304 - 5 weeks 75 - 2,6005 - 6 weeks 850 - 20,8006 - 7 weeks 4000 - 100,2007 - 12 weeks 11,500 - 289,95731 - 16 weeks 18,300 - 137,53345 - 29 weeks (2nd trimester) 1,400 - 53,18269 - 41 weeks (3rd trimester) 940 - [...] ORDERAB LES Final Result Performing Organization Address City/State/[facility] Co de Phone Number [facility] [address] [place] [address] [phone] * BI Mammogram Screening Tomosynthesis Bilateral (07/31/2023 12:50 PM EST) Anatomical Region Laterality Modality Breast Bilateral Mammography 07/31/2023 12:5 0 PM EST Narrative 08/17/2023 6:29 AM EST ? [facility] [place] ? [address] ?[place] [id number] ? Mammography Report ? Signed ? Patient: Jarad,Kay ?MR#: [id number] ?? [id number] ? : 1985 ?Acct:[id number] ? Age/Sex: 38 / F ?ADM Date: 01/26/24 ? Loc: HO.MAMMO ? Attending Dr: Anny Carcamo MD ? Ordering Physician: Anny Carcamo MD ?Results: 1Negative ? Date of Service: 07/31/23 ?Follow Up: 1 Year From Orig ?? inal Mammogram ? Procedure(s): MM tomosynthesis screening BI ?? Accession Number(s): [id number] ? cc: Anny Carcamo MD ? EXAMINATION: [...] ? 08/17/23624 ? DD/ ? TD/TT: ? Caustic Mixer: ? Procedure Note Scott, Image - 08/17/2023 [facility] [address] [place] [address] [place] [address] Mammography Report Signed Patient: Kay AbrahamMR#: [id number] : 1985Acct:[id number] Age/Sex: 38 / FADM Date: 07/31/23 Loc: DION Attending Dr: Anny Carcamo MD Ordering Physician: Anny Carcamo MDResults: 1Negative Date of Service: 07/31/23Follow Up: 1 Year From Orig ina Mammogram Procedure(s): MM tomosynthesis screening BI Accession Number(s): [id number] cc: Anny Carcamo MD EXAMINATION: MM SCREENING [...] in OV> 08/17/23 0625 DD/ 1250 TD/TT: Caustic Mixer: us Anny Carcamo MD IMG BI PROCEDURES [...] with computer assisted technology. CONVERTED LEGACY LABS Sugar Cane Planting Equipment Operator : SEE COMMENT CONVERTED [facility]GACY LABS Comment: MSM, CT(ASCP) CT screening location: [address] ??[address] HPV nRNA E6/E7 Not Detected Not Detected CONVERT[facility]GACY LABS Comment: Methodology: Neuropsychology Medical Consultant-Mediated Amplification This assay detects E6/E7 viral messenger RNA (mRNA) from 14 high-risk HPV types (16,18,31,33,35,39,45,51,52,56,58,59,66,68). ? Cervical sources are required for HPV testing. If a vaginal source from a patient who has had a total hysterectomy with removal of cervix was ?? submitted, please contact the testing laboratory for alternative testing options. ?? For additional information, please refer to http://education.[employer]/faq/WUA106v6 (This link if provided for information/ educational [...] a test for HCV RNA (test code 50537) is suggested. ?? For additional information please refer to http://[employer]/faq/FAD45i4 (This link is being provided for informational/ [...] ? For additional information please refer to http://[employer]/faq/ZAQ581 (This link is being provided for informational/ [...] [facility] < 65 [place] [phone] Care Teams Solutions Executive Security Relationship Specialty Start Date End Date Anny Carcamo MD [address] [place] [phone] PCP - General Family Medicine 01/20/14
--- OUTSIDE RECORDS SUMMARY | 2024-11-16 13:28 | XMS_ITS | Encounter Summary ---
Author Organization [employer] Address [address] [facility] [address]t [place] [address] Care Team Providers Care Shingle Trimmer Name Role Phone Anny Carcamo MD Primary Care Provider Reason for Visit * Reason Comments Med Refill Encounter Details Date Type Department Care Team ([facility] [address] [facility] Contact Info) Description 11/11/2024 Refill [facility] [address] [place], [place] [phone] Name, MD Ray [address] [place] [address] Nonintractable headache, unspecified chronicity pattern, unspecified headache [...] Description 11/23/2024 2:00 PM EDT Clinical Support [facility] [address] [place] [address] documented as of this encounter Visit Diagnoses Diagnosis Nonintractable headache, unspecified chronicity pattern, unspecified headache type documented in this encounter Additional Health Concerns Assessment Noted Time PHQ-9 Depression Total Score: 7 02/16/20 24 3:24 PM EDT documented as of this encounter Care Teams Shingle Trimmer Relationship Specialty Start Date End Date Anny Carcamo MD [address] [place] [address] PCP - General Family Medicine 01/20/14 documented as of this encounter
== END 2024-11-16 13:16 | disposition home or self-care (01) ==
LOC: HO.MAMMO 13:15
PROVIDERS: PCP Family Medicine; Visit Provider Family Medicine
DX: Z12.31 Encounter for screening mammogram for malignant neoplasm of breast (principal)
CPT/HCPCS: 77063; 77067

== ENCOUNTER → 2024-11-16 13:30 | Outpatient (BNV) | payer OTHER, SELFPAY | PROVIDERS: PCP Family Medicine; Visit Provider Internal Medicine | DX: Z12.31 Encounter for screening mammogram for malignant neoplasm of breast (principal) | CPT/HCPCS: 77063; 77067 ==

== ENCOUNTER 2024-11-23 10:37 | Outpatient (AMB) | payer OTHER, SELFPAY ==
--- NOTE | 2024-11-23 10:54 | A.OFFVIS_ITS ---
Vital Signs 11/23/24 10:56 Height 5 ft 3 in Weight 198 lb BMI 35.1 Intake Visit Reasons: EMB Concreter Required: No Information Interpreted: non-clinical & clinical Seamless Hosiery Knitter: Seamless Hosiery Knitter Present (Tawana TOMLIN) Accompanied by: Self / Same As Patient Allergies No Known Allergies Allergy (Verified 11/23/24 10:58) HPI Comments Details: Presenting for EMB [facility] Medical History Asthma Hemorrhoids that prolapse with straining and require manual replacement back inside anal canal Surgical History History of surgery on arm Social History Alcohol intake: never Patient Tobacco Use Status: Never used Tobacco Review of Systems Const All systems reviewed & are unremarkable except as noted in HPI and below Reports as per HPI and Reports no additional complaints GI Reports no additional complaints Reports no additional complaints Physical Exam Vital Signs: BMI result Body Mass Index 35.1 Office Procedures Endometrial Biopsy Details: The patient was counseled regarding the indication and benefits of endometrial sampling to rule out endometrial pathology including not limited to endometrial hyperplasia or endometrial cancer and others; The alternatives (Either do nothing vs. hysteroscopy D&C) & the risks were discussed with the patient including but not limited: pain, uterine perforation, bleeding, infection, possible injury to bladder, bowel, ureter, possible need for blood transfusion with all its possible risks. The patient verbalized understanding all questions answered and signed consent. Urine test done in the office was negative The patient was placed into the dorsal lithotomy position; a speculum was inserted in the vagina. Using aseptic technique for the procedure, the cervix was cleansed with Betadine. The anterior lip of the cervix was grasped with a single tooth tenaculum. The uterus was sounded to 7 cm with a 4 mm Pipelle was used. Tissues samples were obtained and placed in formalin, in a patient labeled container and sent to the pathology department. At the end of the procedure, there was minimal bleeding noted The patient tolerated the procedure well and was discharged in good condition with the following instructions: Nothing in the vagina until the bleeding stops. No sex until the bleeding stops, to call if any of the following occurs: fever (>100.4), flu-like symptoms, abdominal pain, heavy bleeding, four smelling vaginal discharge. The patient was instructed to schedule a Follow up appointment in 2 weeks to discuss pathology results of the biopsy and treatment options. This note was generated with a voice recognition program. Some errors may have been overlooked during the review of this note. Sometimes these errors may affect the content or meaning of a given sentence. 31534-Cvcamijwnsv Biopsy Results AMB Test Urine AMB Test Urine Negative Last Edit by Tawana Pineda CMA on 10:59 Results Reviewed Results Reviewed: Laboratory Last Values Tst Clinic Negative 11/23/24 10:59 Assessment & Plan Assessment & Plan (1) Abnormal uterine bleeding: Code(s): N93.9 - Abnormal uterine and vaginal bleeding, unspecified Category: Medical Plan: EMB done, see procedure note Orders: Orders AMB HCG Urine Test Today Z32.02 - Encounter for test, result negative AMB Endometrial Biopsy Today N93.9 - Abnormal uterine and vaginal bleeding, unspecified Coding Level of Care Code Procedure Only Diagnoses Abnormal uterine bleeding N93.9 CPT Codes Endometrial Biopsy - CPT: 01107-Myjfniqchgd Biopsy ([id number])
[2024-11-23 10:56] VITALS: BMI 35.1
--- OUTSIDE RECORDS SUMMARY | 2024-11-23 12:06 | XMS_ITS | Encounter Summary ---
Author Organization [employer] Address [address] [facility] 7t [place] [address] Care Team Providers Care Intensive Care Unit Nurse Name Role Phone Anny Carcamo MD Primary Care Provider [phone] Reason for Referral * Consultation (Routine) - Closed Specialty Diagnoses / Procedures Referred By Contac t Referred To Contact Obstetrics and Gynecology Diagnoses Abnormal uterine bleeding (AUB) Fibroid Anny Carcamo MD [address] [place] [phone] Phone: tel: fax: [facility] Women? s Services [address] 5[address] (Main Hospital Entrance) [place], [place] Phone: tel: fax: Referral ID Status Reason Start Date Expiration Date V isits Requested Visits Authorized [id number] Closed Specialty Services Required 12/18/2023 12/17/2024 1 1 Encounter Details Date Type Department Care Team (Late st Contact Info) Description 12/18/2023 Orders Only [facility] MEDICINE [address] [place], [place] [phone] Anny Carcamo MD [address] [place], [place] [phone] Abnormal uterine bleeding (AUB) (Primary Dx); Fibroid; [...] fundus. 2. Normal ovaries. - refer to AVIATION TECHNICAL SYSTEMS SPECIALIST - PAP at next visit * Assessment & Plan Note - Anny Carcamo MD - 12/18/2023 10:34 AM EDTAssociated Problem(s): Fibroid - 11/02/23 Pelvic US showed 1.2 cm exophytic fibroid extends off the uterine fundus. - referred to AVIATION TECHNICAL SYSTEMS SPECIALIST documented in this encounter Plan of Treatment Upcoming Encounters Date Type Department Care Team (Late st Contact Info) Description 11/23/2024 2:00 PM EDT Clinical Support [facility] [address] [place] [phone] Scheduled Referrals Name Type Priority Associated Diagnoses [...] Vitamin B12 303 200 - 900 pg/mL [facility] Comment:NORMAL 200-900 PG/ML INDETERMINATE 160-199 PG/ML DEFICIENT < 160 PG/ML Folate 9.0 > or = 4.0 ng/mL [facility] Comment:Reference Values:> o r = 4.0 ng/mL< 4.0 ng/mL suggests folate deficiency Methotrexate, aminopterin and folinic acid(leucovorin) are chemotherapeutic agents whose molecularstructures are similar to folate; therefore, the Architectfolate assay cannot be used for patients using these drugs. 02/16/2024 4:00 PM EDT 02/16/2024 5:46 PM EDT Anny Carcamo MD LAB BLOOD ORDERABLES Final Resul t Performing Organization Address [facility] Co de Phone Number [facility] [address] [place] [phone] * Iron And Total Iron Binding Capacity (02/16/2024 4:00 PM EDT) Iron 84 30 - 160 mcg/dL [facility] Total Iron Binding Capacity 318 228 - 428 mcg/dL [facility] Percent Iron Saturation 26 15 - 50 % [facility] Unsaturated Iron Binding 234 ug/dL [facility] Blood Venous blood specimen / Unknown 02/16/2024 4:00 PM EDT 02/16/2024 5:46 PM EDT Anny Carcamo MD LAB BLOOD ORDERABLES Final Resul t Performing Organization Address [facility] Co de Phone Number [facility] [address] [place] [phone] * Ferritin (02/16/2024 4:00 PM EDT) Ferritin 113 10 - 250 ng/mL [facility] Blood Venous blood specimen / Unknown 02/16/2024 4:00 PM EDT 02/16/2024 5:46 PM EDT Anny Carcamo MD LAB BLOOD ORDERABLES Final Resul t Performing Organization Address [facility] Co de Phone Number [facility] [address] [place] [phone] * (ABNORMAL) CBC auto differential (02/16/2024 4:00 PM EDT) White Blood Count 8.7 4.8 - 10.8 X10*3/uL [facility] Red Blood Count 4.64 4.20 - 5.50 X10*6/uL [facility] Hemoglobin 13.0 12.0 - 16.0 g/dl [facility] Hematocrit 39.6 37.0 - 47.0 % [facility] Mean Corpuscular Volume 85.3 80.0 - 98.0 fL [facility] Mean Corpuscular Hemoglobin 28.0 27.0 - 33.0 pg [facility] Mean Corpuscular HGB Conc 32.8 31.0 - 35.0 g/dl [facility] Red Cell Distribution Width 13.1 11.0 - 16.0 % [facility] Platelet Count 308 160 - 400 X10*3/uL [facility] Mean Platelet Volume 9.7 9.4 - 12.3 fL [facility] Neutrophils Percent Auto 58.9 45 - 73 % [facility] Imm Gran Pct Auto 0.5(H) 0.0 - 0.4 % [facility] Lymphocytes Percent Auto 33.6 20 - 40 % [facility] Monocytes Percent Auto 5.7 2 - 11 % [facility] Eosinophils Percent Auto 1.0 0 - 4 % [facility] Basophils Percent Auto 0.3 0 - 2 % [facility] NRBC Pct Auto 0.0 0.0 - 0.2 /100WBC [facility] Neutrophils Absolute Auto 5.1 2.0 - 8.3 x10*3/uL [facility] Imm Gran Abs Auto 0.04(H) 0.00 - 0.03 X10*3/uL [facility] Lymphocytes Absolute Auto 2.9 1.2 - 4.9 X10*3/uL [facility] Monocytes Absolute Auto 0.5 0.1 - 1.2 X10*3/uL [facility] Eosinophils Absolute Auto 0.1 0.0 - 0.4 X10*3/uL [facility] Basophils Absolute Auto 0.0 0.0 - 0.2 X10*3/uL [facility] NRBC Abs Auto 0.000 0.0 - 0.012 X10*3/uL [facility] Blood Venous blood specimen / Unknown 02/16/2024 4:00 PM EDT 02/16/2024 5:46 PM EDT Anny Carcamo MD LAB BLOOD ORDERABLES Final Resul t [facility] [address] [place] [phone] documented in this encounter Visit Diagnoses Diagnosis Abnormal uterine bleeding (AUB)- Primary Fibroid Leiomyoma of uterus, unspecified Anemia, unspecified type documented in this encounter Additional Health Concerns Assessment Noted Time PHQ-9 Depression Total Score: 0 06/23/20 23 2:52 PM EST documented as of this encounter Care Teams Intensive Care Unit Nurse Relationship Specialty Start Date End Date Anny Carcamo MD [address] [place] [address] PCP - General Family Medicine 01/20/14 documented as of this encounter
--- OUTSIDE RECORDS SUMMARY | 2024-11-23 12:06 | XMS_ITS | Clinical Summary ---
Author Organization [employer] Address [address] [place] [address] 7t [place] [address] Care Team Providers Care Airport Refueling Handler Name Role Phone Anny Carcamo MD Primary Care Provider [phone] Allergies No known active allergies Medications albuterol [...] Endometrium thickness 4 mm. - Evaluated by Police Chief in September 2024 Assessment & Plan (02/16/2024 3:54 PM EDT): - 11/02/23 Pelvic US showed 1.2 cm exophytic fibroid extends off the uterine fundus. - referred to SYSTEMS LEAD Assessment & Plan (12/18/2023 10:34 AM EDT): - 11/02/23 Pelvic US showed 1.2 cm exophytic fibroid extends off the uterine fundus. - referred to SYSTEMS LEAD Abnormal uterine bleeding (AUB) 10/28/2023 Assessment & Plan (11/02/2024 11:29 AM EDT): - oligomenorrhea rather than menorrhagia, question of PCOS - 11/02/23 Pelvic US 1. 1.2 cm exophytic fibroid extends off the uterine fundus. 2. Normal ovaries. - evaluated by SYSTEMS LEAD - Normal pap in September 2024 Assessment & Plan (02/16/2024 3:51 PM EDT): - oligomenorrhea rather than menorrhagia, question of PCOS - 11/02/23 Pelvic US 1. 1.2 cm exophytic fibroid extends off the uterine fundus. 2. Normal ovaries. - refer to SYSTEMS LEAD - check anemia lab Assessment & Plan (12/18/2023 10:36 AM EDT): - oligomenorrhea rather than menorrhagia, question of PCOS - 11/02/23 Pelvic US 1. 1.2 cm exophytic fibroid extends off the uterine fundus. 2. Normal ovaries. - refer to SYSTEMS LEAD - PAP at next visit Assessment & [...] Type Department Care Team Description 11/11/2024 Refill [facility] [address] [place] [address] Name, MD Ray Nonintractable headache, unspecified chronicity pattern, unspecified headache type 11/02/2024 9:45 AM EDT Office Visit [facility] [address] [place] [address] Anny Carcamo MD Mild intermittent asthma without [...] Health care maintenance 11/02/2024 Travel 11/01/2024 Telephone [facility] [address] [place] [address] Andre Kirkpatrick [place] CHART PREP 10/20/2024 Patient Outreach [facility] [address] [place] [address] Anny Carcamo MD Pre-visit Planning ([facility] unable to reach [facility] ) 10/12/2024 Refill [facility] [address] [place] [address] Anny Carcamo MD Nonintractable headache, unspecified chronicity pattern, unspecified headache type 09/29/2024 Orders Only GENERIC EXTERNAL DATA DEPARTMENT Provider, Generic External Data 09/08/2024 Refill [facility] [address] [place] [address] Anny Carcamo MD Nonintractable headache, unspecified chronicity [...] Description 11/23/2024 2:00 PM EDT Clinical Support [facility] [address] [place] [address] Health Maintenance Due Date Last Done Comments Family Planning (PISQ) 1998 Influenza Vaccine (#1) 2024 3, 04/10/2022, 08/10/2017, Additional history exists Depression Screening 02/15/2025 02/16/2024, 02/16/20 Pap Smear 05/19/2025 05/19/2022 Mammogram 07/31/2025 07/31/2023 Alcohol/Substance Use Screening 11/02/2025 11/02/2024 Disability Screening 11/03/2025 11/03/2024 SDOH Screening 11/03/2025 11/03/2024 Tobacco Screening 11/06/2025 [...] patient's age to complete this topic Meningococcal B Vaccine Aged Out No l onger eligible based on patient's age to complete [...] Free T4 1.88 0.32 - 4.0 uIU/mL [facility] Blood 11/02/2024 11:0 2 AM EDT 11/02/2024 1:27 PM EDT us Anny Carcamo MD LAB BLOOD ORDERABLES Final Resul t [facility] [address] [place] [phone] * (ABNORMAL) Lipid Panel with Reflex to Direct LDL (11/02/2024 11:02 AM EDT) Triglycerides 196(H) <150 mg/dL [facility] Comment:Desirable Triglyceri de: less than 150 mg/dLBorderline High Triglyceride 150-199 mg/dLHigh Triglyceride: 200-499 mg/dLVery High Triglyceride: greater than or equal to 5OO mg/dL Cholesterol 191 <200 mg/dL [facility] Comment:Desirable Cholestero l: less than 200 mg/dLBorderline High Cholesterol: 200-239 mg/dLHigh Cholesterol: greater than 239 mg/dL LDL Cholesterol Calculated 93 <100 mg/dL [facility] Comment:Desirable LDL: less than 100 mg/dLNear Optimal/Above Optimal LDL: 110- 129 mg/dLBorderline High LDL: 130-159 mg/dLHigh LDL: 160-189 mg/dLVery High LDL: greater than or equal to 190 mg/dL HDL Cholesterol 59 >40 mg/dL [facility] Comment:Desirable HDL: great er than 40 mg/dL Note: This HDL assay may give artificially low results in patients with liver disease. Blood 11/02/2024 11:0 2 AM EDT 11/02/2024 1:27 PM EDT Anny Carcamo MD LAB BLOOD ORDERABLES Final Resul t Performing Organization Address [facility] de Phone Number [facility] [address] [place] [phone] * Hemoglobin A1c (11/02/2024 11:02 AM EDT) Hemoglobin A1c 5.4 <6.0 % [facility] Comment:Hemoglobin A1C Refer ence Range Adults: 4.8 - 6.0 % Non diabetic: < 6.0 % Goal: < 7.0 %Additional Action Suggested: > 8.0 %Note: Hemoglobin A1c results are invalid for patients with abnormal amounts of HbF. Blood transfusions may impact the HbA1c concentration in the patient sample. Estimated Average Glucose 108 mg/dL [facility] Comment:eAG = Estimated ave rage glucose which is %A1C expressed asaverage glucose, using the formula of the T0F-CupunflHwmrtyf Glucose study (ADAG), Diabetes Care, Vol.31,#8,Feb. 2007 Blood Venous blood specimen / Unknown 11/02/2024 11:02 AM EDT 11/02/2024 1:27 PM EDT Anny Carcamo MD LAB BLOOD ORDERABLES Final Resul t Performing Organization Address [facility] Co de Phone Number [facility] [address] [place] [phone] * (ABNORMAL) Comprehensive Metabolic Panel (11/02/2024 11:02 AM EDT) Sodium 141 135 - 145 mmol/L [facility] Potassium 4.2 3.3 - 5.1 mmol/L [facility] Chloride 104 96 - 108 mmol/L [facility] Carbon Dioxide 30(H) 22 - 29 mmol/L [facility] Anion Gap 11(L) 12 - 20 [facility] Urea Nitrogen (BUN) 14 9 - 16 mg/dL [facility] Creatinine, Serum 0.77 0.5 - 1.4 mg/dL [facility] Estimated Glomerular Filt Rate >60 [facility] Comment:Chronic Kidney Disea se: Estimated GFR < 60 mL/min/[id number] Kidney Disease: Estimated GFR < 15 mL/min/1.73m2 Glucose 92 60 - 115 mg/dL [facility] Calcium 9.7 8.4 - 10.2 mg/dL [facility] Bilirubin, Total 0.4 0.0 - 1.0 mg/dL [facility] Aspartate Amino Transferase 26 5 - 31 U/L [facility] Alanine Aminotransferase 36(H) 0 - 31 U/L [facility] Total Protein 7.2 6.5 - 8.0 g/dL [facility] Albumin Level 4.4 3.5 - 5.0 g/dL [facility] Alkaline Phosphatase 85 39 - 117 U/L [facility] Blood Venous blood specimen / Unknown 11/02/2024 11:02 AM EDT 11/02/2024 1:27 PM EDT us Anny Carcamo MD LAB BLOOD ORDERABLES Final Resul t [facility] [address] [place] [phone] * US Pelvis Transvaginal (10/28/2024 1:56 PM EDT) Anatomical Region Laterality Modality Pelvis Ultrasound 10/28/2024 1:56 PM EDT Narrative 10/28/2024 1:58 PM EDT ? [facility] ?[address] ?[place] [address] ? Ultrasound Report ? Signed ? Patient: Jarad,Kay ?MR#: [id number] ?? [id number] ? : 1985 ?Acct:[id number] ? Age/Sex: 39 / F ?ADM Date: 04/23/25 ? Loc: HO.US ? Attending Dr: Bruce Weber MD ? Ordering Physician: Bruce Weber MD ?? Date of Service: 10/26/24 ?? Procedure(s): US pelvic and transvaginal ?? Accession Number(s): [id number] ? cc: Anny Carcamo MD; Bruce Weber MD ? CLINICAL HISTORY: N93.9 - Abnormal uterine and vaginal bleeding, unspecified ? Ultrasound pelvis transabdominal and transvaginal. ? COMPARISON: US pelvis dated 11/02/23 at 14:37 EDT ? Technique: Real time sonographic imaging, including color-flow imaging, ?? was performed by the therapist respiratory. Multiple packaging sales representative static images ?? were saved for [...] signed by Norberto Hankins MD in OV> ?10/28/241356 ? DD/ 55 ? TD/TT: 10/28/241355 ? Sane Nurse: ? Procedure Note Scott, Image - 10/28/[address] [address] Ultrasound Report Signed Patient: Kay AbrahamMR#: [id number] : 1985Acct:[id number] Age/Sex: 39 / FADM Date: 10/26/24 Loc: .US Attending Dr: Bruce Weber MD Ordering Physician: Bruce Weber MD Date of Service: 10/26/24 Procedure(s): US pelvic and transvaginal Accession Number(s): [id number] cc: Anny Carcamo MD; Bruce Weber MD CLINICAL HISTORY: N93.9 - Abnormal uterine and vaginal bleeding,unspecified Ultrasound pelvis transabdominal and transvaginal. COMPARISON: US pelvis dated 11/02/23 at 14:37 EDT Technique: Real time sonographic imaging, including color-flow imaging, was performed by the therapist respiratory. Multiple packaging sales representative static images were saved for review. [...] by Norberto Hankins MD in OV> 10/28/24 8977 DD/ 1356 TD/TT: 10/28/24 1356 Sane Nurse: us [facility] External Provider IMG US PROCEDURES Edited Result - Final * CBC (09/29/2024 1:54 PM EDT) White Blood Count 9.0 4.8 - 10.8 X10*3/uL [facility] Red Blood Count 4.54 4.20 - 5.50 X10*6/uL [facility] Hemoglobin 12.4 12.0 - 16.0 g/dl [facility] Hematocrit 37.7 37.0 - 47.0 % [facility] Mean Corpuscular Volume 83.0 80.0 - 98.0 fL [facility] Mean Corpuscular Hemoglobin 27.3 27.0 - 33.0 pg [facility] Mean Corpuscular HGB Conc 32.9 31.0 - 35.0 g/dl [facility] Red Cell Distribution Width 14.3 11.0 - 16.0 % [facility] Platelet Count 324 160 - 400 X10*3/uL [facility] Mean Platelet Volume 9.5 9.4 - 12.3 fL [facility] NRBC Pct Auto 0.0 0.0 - 0.2 /100WBC [facility] NRBC Abs Auto 0.000 0.0 - 0.012 X10*3/uL [facility] 09/29/2024 1:54 PM EDT 09/29/2024 1:54 PM EDT Generic External Data Provider LAB BLOOD ORDERAB LES Final Result [facility] [address] [place], [place] [phone] * hCG, Total, Quantitative (09/29/2024 1:54 PM EDT) HCG Quantitative <2 mIU/mL [facility] Comment:Weeks post LMP Appro ximate hCG(Last Menstrual Period) Range (mIU/ml)3 - 4 weeks 9 - 1304 - 5 weeks 75 - 2,6005 - 6 weeks 850 - 20,8006 - 7 weeks 4000 - 100,2007 - 12 weeks 11,500 - 289,96969 - 16 weeks 18,300 - 137,40061 - 29 weeks (2nd trimester) 1,400 - 53,25566 - 41 weeks (3rd trimester) 940 - [...] ORDERAB LES Final Result Performing Organization Address City/State/[facility] Co de Phone Number [facility] [address] [place] [address] [phone] * BI Mammogram Screening Tomosynthesis Bilateral (07/31/2023 12:50 PM EST) Anatomical Region Laterality Modality Breast Bilateral Mammography 07/31/2023 12:5 0 PM EST Narrative 08/17/2023 6:29 AM EST ? [facility] [employer] [facility] [employer] ? [address] ?[place] [address] ? Mammography Report ? Signed ? Patient: Jarad,Kay ?MR#: [id number] ?? [id number] ? : 1985 ?Acct:[id number] ? Age/Sex: 38 / F ?ADM Date: 01/26/24 ? Loc: HO.MAMMO ? Attending Dr: Anny Carcamo MD ? Ordering Physician: Anny Carcamo MD ?Results: 1Negative ? Date of Service: 07/31/23 ?Follow Up: 1 Year From Orig ?? inal Mammogram ? Procedure(s): MM tomosynthesis screening BI ?? Accession Number(s): [id number] ? cc: Anny Carcamo MD ? EXAMINATION: [...] 08/17/23624 ? DD/ 1250 ? TD/TT: ? Sane Nurse: ? Procedure Note Donotuseinterpreter, Image - 08/17/2023 [place] [facility] [address] [place] [address] Mammography Report Signed Patient: Kay AbrahamMR#: [id number] : 1985Acct:[id number] Age/Sex: 38 / FADM Date: 07/31/23 Loc: HO.MAMMO Attending Dr: Anny Carcamo MD Ordering Physician: Anny Carcamo MDResults: 1Negative Date of Service: 07/31/23Follow Up: 1 Year From Orig inal Mammogram Procedure(s): MM tomosynthesis screening BI Accession Number(s): [id number] cc: Anny Carcamo MD EXAMINATION: MM SCREENING [...] in OV> 08/17/23 0625 DD/ 1250 TD/TT: Sane Nurse: Anny Carcamo MD IMG BI PROCEDURES Final [...] with computer assisted technology. [facility] Dining Car Waiter/Waitress : SEE COMMENT [facility] Comment: MSM, CT(ASCP) CT screening location: [address] ??[address] HPV nRNA E6/E7 Not Detected Not Detected [facility] Comment: Methodology: Graphics Manager-Mediated Amplification This assay detects E6/E7 viral messenger RNA (mRNA) from 14 high-risk HPV types (16,18,31,33,35,39,45,51,52,56,58,59,66,68). ? Cervical sources are required for HPV testing. If a vaginal source from a patient who has had a total hysterectomy with removal of cervix was ?? submitted, please contact the testing laboratory for alternative testing options. ?? For additional information, please refer to http://education.GreenWizard/faq/WYI896m8 (This link if provided for information/ educational [...] a test for HCV RNA (test code 42884) is suggested. ?? For additional information please refer to http://[employer].GreenWizard/faq/IJV03c7 (This link is being provided for informational/ [...] ? For additional information please refer to http://[employer].GreenWizard/faq/WHF640 (This link is being provided for informational/ educational purposes only.) ? The performance of this assay has not been clinically validated in patients less than 2 years old. ?? 04/10/2022 11:4 9 AM EDT Anny Carcamo MD LAB BLOOD ORDERABLES Final Resul t [facility] from Last 3 Months or Most Recently Relevant to Health Maintenance Insurance [facility] < [address] [place] [id number] Care Teams Airport Refueling Handler Relationship Specialty Start Date End Date Anny Carcamo MD [address] [place] [address] PCP - General Family Medicine 01/20/14
--- OUTSIDE RECORDS SUMMARY | 2024-11-23 12:06 | XMS_ITS | Encounter Summary ---
Author Organization [employer] Address [address] [place] [address] Care Team Providers Care Soil Technician Name Role Phone Anny Carcamo MD Primary Care Provider [phone] Reason for Visit * Reason Onset Date Comments Returning Call 10/15/2023 Encounter Details Date Type Department Care Team ([facility] st Contact Info) Description 10/15/2023 Telephone [facility] [address] [place], [place] [phone] Anny Carcamo MD [address] [place], [place] [phone] Returning Call Social History Tobacco Use Types [...] Direct contactinformation provided. Please contact pt at [phone] documented in this encounter Plan of Treatment Upcoming Encounters Date Type Department Care Team (Late st Contact Info) Description 11/23/2024 2:00 PM EDT Clinical Support [facility] [address] [place] [phone] documented as of this encounter Visit Diagnoses Not on filedocumented in this encounter Additional Health Concerns Assessment Noted Time PHQ-9 Depression Total Score: 0 06/23/20 23 2:52 PM EST documented as of this encounter Care Teams Soil Technician Relationship Specialty Start Date End Date Anny Carcamo MD [address] [place] [address] PCP - General Family Medicine 01/20/14 documented as of this encounter
--- OUTSIDE RECORDS SUMMARY | 2024-11-23 12:06 | XMS_ITS | Encounter Summary ---
Author Organization [employer] Address [address] [facility] [address] [place] [address] Care Team Providers Care Assembler Crimper Name Role Phone Anny Carcamo MD Primary Care Provider [phone] Encounter Details Date Type Department Care Team (Latest Contact Info) Description 12/21/2018 Abstract [facility] CONVERSIONS Dental, Provider, DDS Social History [...] Description 11/23/2024 2:00 PM EDT Clinical Support [facility] [address] [place] [address] documented as of this encounter Visit Diagnoses Not on filedocumented in this encounter Care Teams Assembler Crimper Relationship Specialty Start Date End Date Anny Carcamo MD [address] [place] [address] PCP - General Family Medicine 01/20/14 documented as of this encounter
--- OUTSIDE RECORDS SUMMARY | 2024-11-23 12:06 | XMS_ITS | Encounter Summary ---
Author Organization [employer] Address [address] [facility] [address] [place] [address] Care Team Providers Care Testing And Regulating Technician Name Role Phone Anny Carcamo MD Primary Care Provider [phone] Reason for Visit * Reason Comments Med Refill Encounter Details Date Type Department Care Team ([facility] Contact Info) Description 07/20/2024 Refill [facility] MED[facility]INE [address] [place], [place] [phone] Anny Carcamo MD [address] [place], [place] [phone] Social History Tobacco Use Types Packs/Day Years [...] 2:00 PM EDT Clinical Support [facility] MEDICINE [address] [place] [phone] documented as of this encounter Visit Diagnoses Not on filedocumented in this encounter Additional Health Concerns Assessment Noted Time PHQ-9 Depression Total Score: 7 02/16/20 24 3:24 PM EDT documented as of this encounter Care Teams Testing And Regulating Technician Relationship Specialty Start Date End Date Anny Carcamo MD [address] [place] [address] PCP - General Family Medicine 01/20/14 documented as of this encounter
== END 2024-11-23 11:28 | disposition home or self-care (01) ==
LOC: HO.HWS 10:38
PROVIDERS: PCP Family Medicine; Visit Provider Obstetrics & Gynecology
DX: N93.9 Abnormal uterine and vaginal bleeding, unspecified (principal); Z32.02 Encounter for pregnancy test, result negative
CPT/HCPCS: 58100

== ENCOUNTER 2024-11-23 10:37 | Outpatient (REF) | payer OTHER, SELFPAY | END 2024-11-23 10:38 | disposition home or self-care (01) | LOC: HO.LNP 10:37 | PROVIDERS: PCP Family Medicine; Visit Provider Obstetrics & Gynecology | DX: N93.9 Abnormal uterine and vaginal bleeding, unspecified (principal); Z32.02 Encounter for pregnancy test, result negative | CPT/HCPCS: 58100; 81025; 88305 ==

== ENCOUNTER 2025-02-08 11:28 | Outpatient (AMB) | payer OTHER, SELFPAY ==
--- NOTE | 2025-02-08 11:29 | A.OFFVIS_ITS ---
Intake Visit Reasons: EMB Results Allergies No Known Allergies Allergy (Verified 11/23/24 10:58) HPI Comments Details: The patient scheduled a telehealth visit for follow-up to discuss the results of her abnormal uterine bleeding workup and options of treatment. The following workup was done.: H&H= 12.4/37.7 TSH, hCG, GC and chlamydia were negative. Endometrial biopsy pathology showed the following: Early secretory endometrium with stromal breakdown; negative for atypia, hyperplasia or malignancy Co testing was done was negative. Mammogram was BI-RADS 1. Pelvic ultrasound showed the following: Anteverted uterus measures 7.8 x 4.0 x 4.4 cm. Exophytic uterine fibroid along the fundus measuring 1.5 x 1.3 x 1.0 cm, previously measured 1.2 x 0.9 x 1.2 cm. Uterine fibroid along the anterior aspect of the uterine body measuring 0.9 x 0.9 x 1.4 cm, not definitively identified on prior imaging. Endometrium: 4 mm, normal. Right ovary appears normal and measures 2.2 x 1.3 x 2.0 cm. No right adnexal mass identified. Left ovary appears normal and measures 2.8 x 1.9 x 1.7 cm. No left adnexal mass identified. Normal appearing physiologic follicles/cysts. No free fluid identified in the pelvic cul-de-sac. [facility] Medical History Asthma Hemorrhoids that prolapse with straining and require manual replacement back inside anal canal Surgical History History of surgery on arm Social History Alcohol intake: never Patient Tobacco Use Status: Never used Tobacco Telehealth Telehealth Telehealth Platform: Telephone Location of provider rendering services: practice address Location of patient: address on file Patient Identification confirmed using: Name, : Yes Telehealth method: video Patient verbally consented to treatment: Yes Patient verbally consented to billing insurance company: Yes Patient informed of any privacy concerns related to visit: Yes Minutes spent on Phone/Video with Pt.: 4 Assessment & Plan Assessment & Plan (1) Abnormal uterine bleeding: Code(s): N93.9 - Abnormal uterine and vaginal bleeding, unspecified Category: Medical Plan: Discussed with the patient the results of the work up done and options of treatment including Lysteda, BCP's, Mirena IUD, endometrial ablation and hysterectomy. All pros, cons, risks and benefits if each option was discussed with the patient and the patient decided to think about it and get back to us. All questions answered the patient verbalized understanding. (2) Uterine myoma: Code(s): D25.9 - Leiomyoma of uterus, unspecified Category: Medical Plan: Discussed with the patient the findings on pelvic ultrasound & the risk of myosarcoma; in addition reviewed with the patient that malignancy and pre malignancy cannot be ruled out without hysterectomy for pathological evaluation ; furthermore, explained to the patient the limitation of pelvic ultrasound and endometrial biopsy in the setting. Discussed with the patient the options of treatment including expectant management versus hysterectomy; the pros and cons, risks benefits of each approach were discussed with the patient including the fact that in cases of myosarcoma, surgical treatment can lead to early diagnosis and positively affects the prognosis; after further discussion, the patient decided to proceed with expectant management. Will repeat pelvic ultrasound periodically. Instructions given to patient to call in case any of the following occurs: pressure symptoms, abnormal uterine bleeding, pelvic pain; and to schedule a six-months pelvic ultrasound (order placed) and a follow-up appointment . All questions answered, the patient verbalized understanding and agreed with the plan . I spent a total of 20 minutes reviewing the chart, talking to the patient via video and documenting in the medical record. Orders: Orders US pelvic and transvaginal 12 Months D25.9 - Leiomyoma of uterus, unspecified Coding Level of Care Code Tele Est Pt Level 3 (91128) Diagnoses Abnormal uterine bleeding N93.9 Uterine myoma D25.9
--- OUTSIDE RECORDS SUMMARY | 2025-02-08 12:16 | XMS_ITS | Encounter Summary ---
Author Organization [employer] Address [address] [facility] [address] [place] [address] Care Team Providers Care Stain Remover Name Role Phone Anny Carcamo MD Primary Care Provider [phone] Reason for Referral * Consultation (Routine) - Closed Specialty Diagnoses / Procedures Referred By Contac t Referred To Contact Obstetrics and Gynecology Diagnoses Abnormal uterine bleeding (AUB) Fibroid Anny Carcamo MD [address] [place] [phone] Phone: tel: fax: [facility] [address] 5[address] Floor [address] (Main Hospital Entrance) [place], [place] Phone: tel: fax: Referral ID Status Reason Start Date Expiration Date V isits Requested Visits Authorized [id number] Closed Specialty Services Required 12/18/2023 12/17/2024 1 1 Encounter Details Date Type Department Care Team (Late st Contact Info) Description 12/18/2023 Orders Only [facility] MEDICINE [address] [place] [phone] Anny Carcamo MD [address] [place], [place] [phone] Abnormal uterine bleeding (AUB) (Primary Dx); Fibroid; [...] fundus. 2. Normal ovaries. - refer to [employer] - PAP at next visit * Assessment & Plan Note - Anny Carcamo MD - 12/18/2023 10:34 AM EDTAssociated Problem(s): Fibroid - 11/02/23 Pelvic US showed 1.2 cm exophytic fibroid extends off the uterine fundus. - referred to [employer] documented in this encounter Plan of Treatment Upcoming Encounters Date Type Department Care Team (Late st Contact Info) Description 05/09/2025 1:30 PM EST Office Visit [facility] OPTOMETRY [address] [place], [place] [phone] Hoang, Jelly, OD [address] [place] [address] Scheduled Referrals Name Type Priority Associated Diagnoses [...] Vitamin B12 303 200 - 900 pg/mL [facility] Comment:NORMAL 200-900 PG/ML INDETERMINATE 160-199 PG/ML DEFICIENT < 160 PG/ML Folate 9.0 > or = 4.0 ng/mL [facility] Comment:Reference Values:> o r = 4.0 ng/mL< 4.0 ng/mL suggests folate deficiency Methotrexate, aminopterin and folinic acid(leucovorin) are chemotherapeutic agents whose molecularstructures are similar to folate; therefore, the Architectfolate assay cannot be used for patients using these drugs. 02/16/2024 4:00 PM EDT 02/16/2024 5:46 PM EDT Anny Carcamo MD LAB BLOOD ORDERABLES Final Resul t Performing Organization Address [facility] de Phone Number [facility] [address] [place] [phone] * Iron And Total Iron Binding Capacity (02/16/2024 4:00 PM EDT) Iron 84 30 - 160 mcg/dL [facility] Total Iron Binding Capacity 318 228 - 428 mcg/dL [facility] Percent Iron Saturation 26 15 - 50 % [facility] Unsaturated Iron Binding 234 ug/dL [facility] Blood Venous blood specimen / Unknown 02/16/2024 4:00 PM EDT 02/16/2024 5:46 PM EDT Anny Carcamo MD LAB BLOOD ORDERABLES Final Resul t Performing Organization Address [facility] Number [facility] [address] [place] [phone] * Ferritin (02/16/2024 4:00 PM EDT) Ferritin 113 10 - 250 ng/mL [facility] Blood Venous blood specimen / Unknown 02/16/2024 4:00 PM EDT 02/16/2024 5:46 PM EDT Anny Carcamo MD LAB BLOOD ORDERABLES Final Resul t Performing Organization Address [facility] Co de Phone Number [facility] [address] [place] [phone] * (ABNORMAL) CBC auto differential (02/16/2024 4:00 PM EDT) White Blood Count 8.7 4.8 - 10.8 X10*3/uL [facility] Red Blood Count 4.64 4.20 - 5.50 X10*6/uL [facility] Hemoglobin 13.0 12.0 - 16.0 g/dl [facility] Hematocrit 39.6 37.0 - 47.0 % [facility] Mean Corpuscular Volume 85.3 80.0 - 98.0 fL [facility] Mean Corpuscular Hemoglobin 28.0 27.0 - 33.0 pg [facility] Mean Corpuscular HGB Conc 32.8 31.0 - 35.0 g/dl [facility] Red Cell Distribution Width 13.1 11.0 - 16.0 % [facility] Platelet Count 308 160 - 400 X10*3/uL [facility] Mean Platelet Volume 9.7 9.4 - 12.3 fL [facility] Neutrophils Percent Auto 58.9 45 - 73 % [facility] Imm Gran Pct Auto 0.5(H) 0.0 - 0.4 % [facility] Lymphocytes Percent Auto 33.6 20 - 40 % [facility] Monocytes Percent Auto 5.7 2 - 11 % [facility] Eosinophils Percent Auto 1.0 0 - 4 % [facility] Basophils Percent Auto 0.3 0 - 2 % [facility] NRBC Pct Auto 0.0 0.0 - 0.2 /100WBC [facility] Neutrophils Absolute Auto 5.1 2.0 - 8.3 x10*3/uL [facility] Imm Gran Abs Auto 0.04(H) 0.00 - 0.03 X10*3/uL [facility] Lymphocytes Absolute Auto 2.9 1.2 - 4.9 X10*3/uL [facility] Monocytes Absolute Auto 0.5 0.1 - 1.2 X10*3/uL [facility] Eosinophils Absolute Auto 0.1 0.0 - 0.4 X10*3/uL [facility] Basophils Absolute Auto 0.0 0.0 - 0.2 X10*3/uL [facility] NRBC Abs Auto 0.000 0.0 - 0.012 X10*3/uL [facility] Blood Venous blood specimen / Unknown 02/16/2024 4:00 PM EDT 02/16/2024 5:46 PM EDT us Anny Carcamo MD LAB BLOOD ORDERABLES Final Resul t [facility] [address] [place] [phone] documented in this encounter Visit Diagnoses Diagnosis Abnormal uterine bleeding (AUB)- Primary Fibroid Leiomyoma of uterus, unspecified Anemia, unspecified type documented in this encounter Additional Health Concerns Assessment Noted Time PHQ-9 Depression Total Score: 0 06/23/20 23 2:52 PM EST documented as of this encounter Care Teams Stain Remover Relationship Specialty Start Date End Date Anny Carcamo MD [address] [place] [phone] PCP - General Family Medicine 01/20/14 documented as of this encounter
== END 2025-02-08 12:06 | disposition home or self-care (01) ==
LOC: HO.HWS 11:28
PROVIDERS: PCP Family Medicine; Visit Provider Obstetrics & Gynecology
DX: N93.9 Abnormal uterine and vaginal bleeding, unspecified (principal); D25.9 Leiomyoma of uterus, unspecified
CPT/HCPCS: 99213